=== PATIENT | male | born 1960 | race American Indian/Alaskan Native ===

== ENCOUNTER → 2018-04-09 07:53 | Outpatient (CLI) | payer MEDICARE, OTHER, SELFPAY ==
--- NOTE | 2018-04-12 08:05 | PM.PFT.1 ---
Pulmonary Function Test Referral & Results Date Patient Seen: 04/09/18 Requesting provider: Derick Wooten Indication: Dyspnea Results: The spirometry demonstrates an FVC of 4.52 L which is 109% of predicted. The FEV1 was measured at 3.68 L which is 117% of predicted. The FEV1/FVC ratio was 81 which is 107% of predicted. No bronchodilator was administered Lung volumes show an SVC of 4.62 L which is 110% of predicted. The diffusing capacity was measured at 24.47 which is 90% of predicted. The maximum voluntary ventilation was normal. Interpretation: This study demonstrates normal pulmonary function
== END ==
PROVIDERS: PCP Internal Medicine; Visit Provider Physician Assistant
DX: R06.09 Other forms of dyspnea (principal); F17.219 Nicotine dependence, cigarettes, with unspecified nicotine-induced disorders
CPT/HCPCS: 94010; 94726; 94729

== ENCOUNTER 2019-09-06 14:58 | Inpatient (IN) | payer MEDICARE, OTHER, SELFPAY ==
[2019-09-06 15:07] VITALS: BP 153/87; PULSE 95; RESP 14; TEMP 37.9; O2SAT 95
[2019-09-06 15:52] LABS: Influenza A - CEPHEID Flu A NEGATIVE (NEGATIVE); Influenza B - CEPHEID Flu B NEGATIVE (NEGATIVE)
[2019-09-06] MEDS: SODIUM CHLORIDE 0.9% 1,000 ML 1000 ML IV ×2 (16:19→18:57)
[2019-09-06] MEDS: ONDANSETRON 4 MG/2 ML INJ IV (16:19)
[2019-09-06 16:35] LABS: INR 1.2 (0.9-1.3); Prothrombin Time 14.1 SECONDS (10.1-12.7)
[2019-09-06 16:37] LABS: Add Manual Diff / Slide Review NO; Basophils Absolute Auto 100 /uL (0-100); Basophils Percent Auto 0.4 % (0-2); Eosinophils Absolute Auto 0 /uL (0-450); Eosinophils Percent Auto 0.1 % (2-4); Hematocrit 37.6 % (41-53); Hemoglobin 12.9 g/dL (13.5-17.5); Lymphocytes Absolute Auto 1500 /uL (1100-4500); Lymphocytes Percent Auto 6.9 % (25-40); Mean Corpuscular HGB Conc 34.4 % (30-36); Mean Corpuscular Hemoglobin 32.5 PG (26-34); Mean Corpuscular Volume 94.4 fL (80-100); Monocytes Absolute Auto 1900 /uL (0-900); Monocytes Percent Auto 8.4 % (3-14); Neutrophils Absolute Auto 18700 /uL (1500-7000); Neutrophils Percent Auto 84.2 % (50-75); Platelet Count 231 X10^3/uL (150-400); Red Blood Cell Count 3.98 X10^6/uL (4.5-5.9); Red Cell Distribution Width 12.9 % (11.6-14.8); White Blood Cell Count 22.2 X10^3/uL (4.5-11.0)
[2019-09-06 16:38] LABS: PTT Partial Thromboplastin Tim 43 SECONDS (26.4-36.2)
[2019-09-06 16:42] LABS: Lactate (Lactic Acid) 0.9 mmol/L (0.7-2.1)
[2019-09-06 16:43] LABS: Alanine Aminotransferase 52 IU/L (<50); Albumin 4.1 g/dL (3.5-5.0); Albumin Globulin Ratio 1.1 (1.0-2.8); Alkaline Phosphatase 142 U/L (38-126); Aspartate Aminotransferase 65 IU/L (17-59); BUN Creatinine Ratio 15.6 (6-22); Bilirubin Total 0.7 mg/dL (0.2-1.3); Blood Urea Nitrogen 14 mg/dL (9-20); Calcium 9.3 mg/dL (8.4-10.2); Carbon Dioxide 25 mmol/L (22-32); Chloride 95 mmol/L (98-107); Estimated Glomerular Filt Rate > 60.0 mL/min (>60); Globulin 3.9 g/dL (1.7-4.1); Glucose 142 mg/dL (80-110); HEMOLYSIS < 15 (0-50); Lipase 16 U/L (23-300); Potassium 3.5 mmol/L (3.4-5.1); Sodium 132 mmol/L (137-145)
[2019-09-06 17:00] VITALS: BP 163/83; PULSE 83
[2019-09-06 17:07] LABS: Procalcitonin 0.62 ng/mL (<0.5)
--- NOTE | 2019-09-06 17:56 | DI.CT.S_ITS ---
PROCEDURE: CT ABDOMEN PELVIS W CON INDICATIONS: abd cramping, fever, elevated WBC TECHNIQUE: After the administration of intravenous contrast, 5 mm thick sections acquired from the diaphragm to the symphysis. 5 mm coronal and sagittal reformats were acquired. For radiation dose reduction, the following was used: automated exposure control, adjustment of mA and/or kV according to patient size. COMPARISON: None. FINDINGS: Image quality: Excellent. ABDOMEN: Lung bases: Lung bases are clear. Heart size is normal. Solid organs: Liver is normal in size and enhancement. Gallbladder appears normal. Biliary system is non dilated. Pancreas enhances normally. Spleen is normal in size and enhancement. No adrenal nodules. Kidneys demonstrate normal size and enhancement, without hydronephrosis. Peritoneum and bowel: Bowel loops demonstrate normal wall thickness and caliber. No free fluid or air. Nodes and vessels: No retroperitoneal or mesenteric adenopathy by size criteria. Aorta and inferior vena cava are normal in size. Miscellaneous: No ventral hernias. PELVIS: Genitourinary: Bladder wall thickness is normal. Miscellaneous: No inguinal hernias or adenopathy. Within the midline but most prominently to the left of midline and extending into the presacral space there is extraperitoneal soft tissue edema, in a pattern most likely represent a manifestation of diverticulitis, without visualized peridiverticular abscess. Metal artifact from bilateral hip arthroplasty procedures results in a portion of the lower pelvis being poorly visualized. There is no discrete bladder abnormalities found, but again a portion of the bladder is not seen due to the metal artifact present. Bones: No suspicious bony lesions. No vertebral body compression fractures. IMPRESSION: Prominent inflammation involving the pelvis at and to the left of midline, and statistically this is likely secondary to acute diverticulitis. The metal artifact from bilateral hip arthroplasties prominently degrades quality of visualization through this portion of the pelvis, but with this qualification no peridiverticular abscess is suspected or identified. More superiorly there is no inflammatory process or evidence of free air. Dictated by: Dante Salgado M.D. on 09/06/2019 at 18:26 Approved by: Dante Salgado M.D. on 09/06/2019 at 18:31
[2019-09-06] MEDS: HYDROMORPHONE 0.5 MG INJ IV ×2 (17:57→21:15)
--- NOTE | 2019-09-06 18:09 | ED_ITS ---
HPI - Abdominal Pain General Chief Complaint: Abdominal Pain Stated Complaint: fever/ bodyaches/ stomach pain/ headaches Time Seen by Provider: 09/06/19 17:55 Source: patient Mode of arrival: Ambulatory Limitations: no limitations History of Present Illness HPI narrative: 59-year-old male daily smoker, immunocompromised on Remicade for rheumatoid arthritis presents with a chief complaint of about 3 weeks of gradua lly worsening left lower quadrant pain and now fever, shaking chills decreased appetite with nausea. His pain is worse with motion and improves with rest. He denies any chest pain or shortness of breath. He denies any urinary complaint and has no history of the same. MD complaint: abdominal pain Onset (ago): week(s) Pain Consistency: constant Location: LLQ Severity: moderate Quality: cramping and aching Radiation: none Migration to: no migration Relieving factors: rest Exacerbating factors: movement Associated symptoms: nausea, fever and chills Related Data Home Medications Medication Instructions Recorded Confirmed Remicade See Rx Instructions .ROUTE 12/28/12 09/06/19 .COMPLEX #0 ibuprofen [Advil] 600 mg PO PRN #0 12/28/12 09/06/19 Allergies Allergy/AdvReac Type Severity Reaction Status Date / Time No Known Drug Allergies Allergy Verified 09/06/19 15:11 Review of Systems Constitutional Constitutional: Reports chills, Reports fatigue, Reports fever(s), Denies frequent falls, Denies lethargy and Denies weakness Eyes Eyes: Denies change in vision, Denies eye discharge, Denies irritation and Denies loss of vision ENT Ears, Nose, Mouth, and Throat: Denies change in voice, Denies dizziness, Denies neck pain, Denies sore throat and Denies throat swelling Cardiovascular Cardiovascular: Denies chest pain, Denies irregular heart rhythm, Denies light headedness, Denies palpitations, Denies dyspnea, Denies dyspnea on exertion and Denies orthopnea Respiratory Respiratory: Denies cough, Denies dyspnea, Denies dyspnea on exertion and Denies wheezing Gastrointestinal Gastrointestinal: Reports abdominal pain, Denies change in bowel habits, Denies diarrhea, Reports nausea and Denies vomiting Genitourinary Genitourinary: Denies hematuria, Denies flank pain, Denies urinary incontinence and Denies urinary urgency Musculoskeletal Musculoskeletal: Denies back pain, Denies muscle weakness, Denies neck pain, Denies numbness and Denies tingling Integumentary/Breasts Skin/Breast: Denies pruritus, Denies erythema, Denies rash and Denies wounds Neurologic Neurologic: Denies behavioral changes, Denies confusion, Denies dizziness, Denies frequent falls, Denies loss of vision, Denies numbness, Denies tingling and Denies weakness Psychiatric Psychiatric: Denies anxiety, Denies behavioral changes, Denies confusion, Denies depression, Denies homicidal ideation and Denies suicidal ideation Endocrine Endocrine: Reports fatigue, Denies flushing and Denies palpitations Hematologic/Lymphatic Hematologic/Lymphatic: Denies easy bruising Allergic/Immunologic Allergic/Immunologic: Denies urticaria, Denies throat swelling and Denies wheezing Patient History Medical History Osteoarthritis (Acute) Rheumatoid arthritis (Acute) Surgical History History of appendectomy (Acute) History of bilateral total hip arthroplasty (Acute) History of inguinal hernia repair, bilateral (Acute) Social History household members: none Smoking Status: Current every day smoker alcohol intake: current Smoking Status: Current every day smoker alcohol intake frequency: 0-2 drinks per day Substance Use Type: does not use Exam Narrative Exam Narrative: GENERAL: [59] year old patient appears stated age. Well- nourished, well-developed patient, in mild distress. Ill-appearing, clearly and pain HEAD: Atraumatic. Normocephalic. EYES: Pupils equal round and reactive. Extraocular motions intact. No scleral icterus. No injection or drainage. ENT: Nose without bleeding, purulent drainage. Throat without erythema, tonsillar hypertrophy or exudate. Airway patent. NECK: Trachea midline. Non tender CARDIOVASCULAR: Regular rate and rhythm without murmurs, gallops, or rubs. RESPIRATORY: Clear to auscultation. Breath sounds equal bilaterally. No wheezes, rales, or rhonchi. GASTROINTESTINAL: Abdomen soft, tender left lower quadrant, nondistended. EXTREMITIES: No edema or joint tenderness. BACK: Nontender without deformity or crepitance. No flank tenderness. NEURO: AOx3. SKIN: No rash or erythema of visible areas Initial Vital Signs Initial Vital Signs: Vital Signs Temperature 100.2 F H 09/06/19 15:07 Pulse Rate 95 H 09/06/19 15:07 Respiratory Rate 14 09/06/19 15:07 Blood Pressure 153/87 H 09/06/19 15:07 Pulse Oximetry 95 09/06/19 15:07 Course Orders Ordered: Acetaminophen (Tylenol) 650 mg PO Q6HR PRN PRN Reason: Fever/Mild Pain (1-3) Al Hydrox/Mg Hydrox/Simethicone (Maalox Plus) 30 ml PO Q6HR PRN PRN Reason: Dyspepsia Calcium Carbonate (Tums) 1,000 mg PO Q4HR PRN PRN Reason: Dyspepsia Heparin Sodium (Porcine) (Heparin) 5,000 unit SUBCUT BID [facility] Last Admin: 09/06/19 21:15 Dose: 5,000 unit Documented by: DUANE Hydromorphone HCl (Dilaudid) 0.5 mg IV Q4H PRN PRN Reason: Pain, Severe (7-10) Last Admin: 09/07/19 01:53 Dose: 0.5 mg Documented by: Admin: 09/06/19 21:15 Dose: 0.5 mg Documented by: DUANE Lactated Ringer's (Lactated Ringers) 1,000 mls @ 125 mls/hr IV CONT [facility] Last Admin: 09/06/19 21:16 Dose: 125 mls/hr Documented by: DUANE Levofloxacin (Levaquin) 750 mg in 150 mls @ 100 mls/hr IV Q24H CHRISTOPHE Metronidazole (Flagyl) 500 mg in 100 mls @ 100 mls/hr IV Q6H [facility] Last Infusion: 09/07/19 02:49 Dose: 100 mls/hr Documented by: Admin: 09/07/19 01:49 Dose: 100 mls/hr Documented by: JERARDO Sodium Chloride (Normal Saline 0.9%) 1,000 mls @ 100 mls/hr IV CONT [facility] Last Admin: 09/07/19 01:59 Dose: 100 mls/hr Documented by: JERARDO Influenza Virus Vaccine (Flu Vaccine) 0.5 ml IM .ONCE ONE Stop: 09/07/19 09:01 Naloxone HCl (Narcan) 0.2 mg IV Q2MIN PRN PRN Reason: Opiate Reversal Nicotine (Nicoderm) 14 mg TOP DAILY CHRISTOPHE Ondansetron HCl (Zofran) 4 mg IV Q8HR PRN PRN Reason: Nausea And Vomiting Sodium Chloride (Normal Saline 0.9% Flush) 10 ml IV BID CHRISTOPHE Last Admin: 09/06/19 21:00 Dose: 10 ml Documented by: DUANE Sodium Chloride (Normal Saline 0.9% Flush) 10 ml IV PRN PRN PRN Reason: Flush Discontinued Medications Hydromorphone HCl (Dilaudid) 0.5 mg IV NOW ONE Stop: 09/06/19 17:19 Last Admin: 09/06/19 17:57 Dose: 0.5 mg Documented by: KASANDRA Sodium Chloride (Normal Saline 0.9%) 1,000 mls @ 1,000 mls/hr IV BOLUS ONE Stop: 09/06/19 17:04 Last Infusion: 09/06/19 17:40 Dose: 0 mls/hr Documented by: Infusion: 09/06/19 16:52 Dose: 1,000 mls/hr Documented by: Admin: 09/06/19 16:19 Dose: 1,000 mls/hr Documented by: YOSSI Sodium Chloride (Normal Saline 0.9%) 1,000 mls @ 1,000 mls/hr IV BOLUS ONE Stop: 09/06/19 19:09 Last Infusion: 09/06/19 20:00 Dose: 0 mls/hr Documented by: Admin: 09/06/19 18:57 Dose: 1,000 mls/hr Documented by: YOSSI Levofloxacin (Levaquin) 500 mg in 100 mls @ 100 mls/hr IV NOW ONE Stop: 09/06/19 19:42 Last Infusion: 09/06/19 20:53 Dose: 0 mls/hr Documented by: Admin: 09/06/19 20:01 Dose: 100 mls/hr Documented by: KASANDRA Metronidazole (Flagyl) 500 mg in 100 mls @ 100 mls/hr IV NOW ONE Stop: 09/06/19 19:42 Last Infusion: 09/06/19 20:00 Dose: 0 mls/hr Documented by: Admin: 09/06/19 18:58 Dose: 100 mls/hr Documented by: YOSSI Ibuprofen (Advil) 600 mg PO Q6HR PRN PRN Reason: Fever/Mild Pain (1-3) Influenza Virus Vaccine (Flu Vaccine) 0.5 ml IM .ONCE ONE Stop: 09/06/19 21:50 Last Admin: 09/07/19 00:30 Dose: Not Given Documented by: JERARDO Ondansetron HCl (Zofran) 4 mg IV NOW ONE Stop: 09/06/19 16:06 Last Admin: 09/06/19 16:19 Dose: 4 mg Documented by: YOSSI Vital Signs Vital signs: Vital Signs - 8 hr 09/06/19 15:07 Temperature 100.2 F H Pulse Rate 95 H Respiratory Rate 14 Blood Pressure 153/87 H Pulse Oximetry 95 MDM - Abdominal Pain Lab Data Result diagrams: 09/06/19 16:15 09/06/19 16:15 Labs: Lab Results 09/06/19 09/06/19 09/06/19 Range/Units 15:13 16:15 16:15 WBC 22.2 H (4.5-11.0) X10^3/uL RBC 3.98 L (4.5-5.9) X10^6/uL Hgb 12.9 L (13.5-17.5) g/dL Hct 37.6 L (41-53) % MCV 94.4 (80-100) fL MCH 32.5 (26-34) PG MCHC 34.4 (30-36) % RDW 12.9 (11.6-14.8) % Plt Count 231 (150-400) X10^3/uL Neut % (Auto) 84.2 H (50-75) % Lymph % (Auto) 6.9 L (25-40) % [place] % (Auto) 8.4 (3-14) % Eos % (Auto) 0.1 L (2-4) % Baso % (Auto) 0.4 (0-2) % Neut # (Auto) 82321 H (0608-8034) /uL Lymph # (Auto) 1500 (4244-8707) /uL [place] # (Auto) 1900 H (0-900) /uL Eos # (Auto) 0 (0-450) /uL Baso # (Auto) 100 (0-100) /uL PT 14.1 H (10.1-12.7) SECONDS INR 1.2 (0.9-1.3) APTT 43 H (26.4-36.2) SECONDS Sodium (137-145) mmol/L Potassium (3.4-5.1) mmol/L Chloride (98-107) mmol/L Carbon Dioxide (22-32) mmol/L BUN (9-20) mg/dL Creatinine (0.66-1.25) mg/dL Estimated GFR (>60) mL/min BUN/Creatinine Ratio (6-22) Glucose (80-110) mg/dL Lactate (0.7-2.1) mmol/L Calcium (8.4-10.2) mg/dL Magnesium (1.6-2.3) mg/dL Total Bilirubin (0.2-1.3) mg/dL AST (17-59) IU/L ALT (<50) IU/L Alkaline Phosphatase (38-126) U/L Total Protein (6.3-8.2) g/dL Albumin (3.5-5.0) g/dL Globulin (1.7-4.1) g/dL Albumin/Globulin Ratio (1.0-2.8) Lipase (23-300) U/L Procalcitonin (<0.5) ng/mL Urine RBC (0-5/HPF) Urine WBC (0-5/HPF) Amorphous Sediment Urine Bacteria (None) Urine Mucus (Negative) Ur Culture Indicated? Influenza A (RT-PCR) Flu a negative (NEGATIVE) Influenza B (RT-PCR) Flu b negative (NEGATIVE) 09/06/19 09/06/19 09/06/19 Range/Units 16:15 16:15 16:15 WBC (4.5-11.0) X10^3/uL RBC (4.5-5.9) X10^6/uL Hgb (13.5-17.5) g/dL Hct (41-53) % MCV (80-100) fL MCH (26-34) PG MCHC (30-36) % RDW (11.6-14.8) % Plt Count (150-400) X10^3/uL Neut % (Auto) (50-75) % Lymph % (Auto) (25-40) % [place] % (Auto) (3-14) % Eos % (Auto) (2-4) % Baso % (Auto) (0-2) % Neut # (Auto) (6205-6219) /uL Lymph # (Auto) (2284-1890) /uL [place]vert # (Auto) (0-900) /uL Eos # (Auto) (0-450) /uL Baso # (Auto) (0-100) /uL PT (10.1-12.7) SECONDS INR (0.9-1.3) APTT (26.4-36.2) SECONDS Sodium 132 L (137-145) mmol/L Potassium 3.5 (3.4-5.1) mmol/L Chloride 95 L (98-107) mmol/L Carbon Dioxide 25 (22-32) mmol/L BUN 14 (9-20) mg/dL Creatinine 0.90 (0.66-1.25) mg/dL Estimated GFR > 60.0 (>60) mL/min BUN/Creatinine Ratio 15.6 (6-22) Glucose 142 H (80-110) mg/dL Lactate 0.9 (0.7-2.1) mmol/L Calcium 9.3 (8.4-10.2) mg/dL Magnesium (1.6-2.3) mg/dL Total Bilirubin 0.7 (0.2-1.3) mg/dL AST 65 H (17-59) IU/L ALT 52 H (<50) IU/L Alkaline Phosphatase 142 H (38-126) U/L Total Protein 8.0 (6.3-8.2) g/dL Albumin 4.1 (3.5-5.0) g/dL Globulin 3.9 (1.7-4.1) g/dL Albumin/Globulin Ratio 1.1 (1.0-2.8) Lipase 16 L (23-300) U/L Procalcitonin 0.62 H (<0.5) ng/mL Urine RBC (0-5/HPF) Urine WBC (0-5/HPF) Amorphous Sediment Urine Bacteria (None) Urine Mucus (Negative) Ur Culture Indicated? Influenza A (RT-PCR) (NEGATIVE) Influenza B (RT-PCR) (NEGATIVE) 09/06/19 09/06/19 Range/Units 16:15 17:30 WBC (4.5-11.0) X10^3/uL RBC (4.5-5.9) X10^6/uL Hgb (13.5-17.5) g/dL Hct (41-53) % MCV (80-100) fL MCH (26-34) PG MCHC (30-36) % RDW (11.6-14.8) % Plt Count (150-400) X10^3/uL Neut % (Auto) (50-75) % Lymph % (Auto) (25-40) % [place]vert % (Auto) (3-14) % Eos % (Auto) (2-4) % Baso % (Auto) (0-2) % Neut # (Auto) (4716-1341) /uL Lymph # (Auto) (9474-9855) /uL [place]vert # (Auto) (0-900) /uL Eos # (Auto) (0-450) /uL Baso # (Auto) (0-100) /uL PT (10.1-12.7) SECONDS INR (0.9-1.3) APTT (26.4-36.2) SECONDS Sodium (137-145) mmol/L Potassium (3.4-5.1) mmol/L Chloride (98-107) mmol/L Carbon Dioxide (22-32) mmol/L BUN (9-20) mg/dL Creatinine (0.66-1.25) mg/dL Estimated GFR (>60) mL/min BUN/Creatinine Ratio (6-22) Glucose (80-110) mg/dL Lactate (0.7-2.1) mmol/L Calcium (8.4-10.2) mg/dL Magnesium 2.3 (1.6-2.3) mg/dL Total Bilirubin (0.2-1.3) mg/dL AST (17-59) IU/L ALT (<50) IU/L Alkaline Phosphatase (38-126) U/L Total Protein (6.3-8.2) g/dL Albumin (3.5-5.0) g/dL Globulin (1.7-4.1) g/dL Albumin/Globulin Ratio (1.0-2.8) Lipase (23-300) U/L Procalcitonin (<0.5) ng/mL Urine RBC 1-5/hpf (0-5/HPF) Urine WBC None seen (0-5/HPF) Amorphous Sediment 2+ Urine Bacteria None seen (None) Urine Mucus 2+ H (Negative) Ur Culture Indicated? Cult not indicated Influenza A (RT-PCR) (NEGATIVE) Influenza B (RT-PCR) (NEGATIVE) Point of care testing: Urine Dip Bedside Urine Glucose Negative Bedside Urine Bilirubin + 1 Bedside Urine Ketone +++ 80 Urine Specific [place] 1.020 Bedside Urine Occult Blood ++ Bedside Urine pH 6.0 Bedside Urine Protein +++ 300 Bedside Urine Urobilinogen 1+ 2mg Bedside Urine Nitrite - Negative Bedside Urine Leukocytes - Negative Esterase Imaging Data CT scan - abdomen/pelvis: Radiologist's Impression: [address] [id number] [address] Scan Report Signed Patient: Moose Huynh TMR#: [id number] : 8Acct:[id number] Age/Sex: 59 / MDate of Service: 09/06/19 Loc: ED Accession Number: [id number] Procedure: CT abdomen pelvis w con Ordering Provider: Antione Mckeon PROCEDURE: CT ABDOMEN PELVIS W CON INDICATIONS: abd cramping, fever, elevated WBC TECHNIQUE: After the administration of intravenous contrast, 5 mm thick sections acquired from the diaphragm to the symphysis. 5 mm coronal and sagittal reformats were acquired. For radiation dose reduction, the following was used: automated exposure control, adjustment of mA and/or kV according to patient size. COMPARISON: None. FINDINGS: Image quality: Excellent. ABDOMEN: Lung bases: Lung bases are clear. Heart size is normal. Solid organs: Liver is normal in size and enhancement. Gallbladder appears normal. Biliary system is non dilated. Pancreas enhances normally. Spleen is normal in size and enhancement. No adrenal nodules. Kidneys demonstrate normal size and enhancement, without hydronephrosis. Peritoneum and bowel: Bowel loops demonstrate normal wall thickness and caliber. No free fluid or air. Nodes and vessels: No retroperitoneal or mesenteric adenopathy by size criteria. Aorta and inferior vena cava are normal in size. Miscellaneous: No ventral hernias. PELVIS: Genitourinary: Bladder wall thickness is normal. Miscellaneous: No inguinal hernias or adenopathy. Within the midline but most prominently to the left of midline and extending into the presacral space there is extraperitoneal soft tissue edema, in a pattern most likely represent a manifestation of diverticulitis, without visualized peridiverticular abscess. Metal artifact from bilateral hip arthroplasty procedures results in a portion of the lower pelvis being poorly visualized. There is no discrete bladder abnormalities found, but again a portion of the bladder is not seen due to the metal artifact present. Bones: No suspicious bony lesions. No vertebral body compression fractures. IMPRESSION: Prominent inflammation involving the pelvis at and to the left of midline, and statistically this is likely secondary to acute diverticulitis. The metal artifact from bilateral hip arthroplasties prominently degrades quality of visualization through this portion of the pelvis, but with this qualification no peridiverticular abscess is suspected or identified. More superiorly there is no inflammatory process or evidence of free air. Dictated by: Dante Salgado M.D. on 09/06/2019 at 18:26 Approved by: Dante Salgado M.D. on 09/06/2019 at 18:31 [facility] Narrative Medical decision making narrative: 59-year-old smoker, immunocompromise presents with 3 weeks of worsening fever chills and abdominal pain. CT notes diverticulitis in the absence of perforation or abscess. Patient shows marked improvement after fluids, pain control, antiemetics and antibiotics. Patient requires hospitalization given septic presentation duration of symptoms and immunocompromise. Discharge Plan Departure Patient Disposition: Admitted As Inpatient Clinical Impression: Diverticulitis Sepsis Qualifiers: Sepsis type: sepsis due to unspecified organism Sepsis acute organ dysfunction status: unspecified Qualified Code(s): A41.9 - Sepsis, unspecified organism Discharge Date/Time: 09/06/19 20:52 Admit Date/Time: 09/06/19 20:30 Admit Provider: Dario Howell
[2019-09-06 18:19] LABS: Bacteria Urine None Seen; WBC Urine None Seen (0-5/HPF)
[2019-09-06 18:34] LABS: Amorphous Sediment Urine 2+; Culture Indicated Urine Cult Not Indicated; Mucus Urine 2+ (Negative); RBC Urine 1-5/HPF (0-5/HPF)
[2019-09-06 18:43] VITALS: BP 140/78; PULSE 80; RESP 18; O2SAT 94
[2019-09-06] MEDS: metroNIDAZOLE 500 MG/100 ML PIGGYBACK 100 MG IV (18:58)
[2019-09-06] MEDS: levoFLOXacin 500 MG/100 ML PIGGYBACK 100 MG IV (20:01)
[2019-09-06 20:22] VITALS: BP 141/71; PULSE 79; O2SAT 96
--- NOTE | 2019-09-06 20:58 | P.HP_ITS ---
History of Present Illness History of Present Illness Date Patient Seen: 09/06/19 Time Patient Seen: 20:10 Chief complaint: fever/ bodyaches/ stomach pain/ headaches Narrative: Mr. Moose Huynh is a 59-year-old male with a history significant for rheumatoid arthritis on Remicade who reports being ill for approximately 10 days with progressive abdominal pain in the left lower quadrant. Describes pain as crampy and had associated symptoms of fevers and chills, diaphoresis, nausea without vomiting, body aches, poor appetite and weakness. Patient also endorses complaints of nasal congestion and sore throat at the onset of his symptoms. He reports never having previous bowel problems and denies diarrhea and states he has never had colonoscopy. He is on Remicade for rheumatoid arthritis and received injections every 5 weeks the last being 2 weeks ago. Reports no complaints of headaches or dizziness. He does report having swollen cervical lymph nodes at the onset of symptoms. He has had no chest pain or palpitations and has no shortness of breath cough or wheezing. He denies changes in urination. He complaints of stiff and achy joints due to immobility being predominantly bed rest for the last 10 days. Upon arrival patient has temperature of 100.2?, heart rate 95, blood pressure 153/87, respirations 14 saturating 95% on room air. Abdominal pelvis CT is obtained which finds extraperitoneal edema most prominent left midline most likely associated with diverticulitis, exam is limited due to imaging artifact from bilateral hip replacements. On laboratory now patient has an elevated white count at 12 2 point, hemoglobin of 12.9, hematocrit of 37.6 and platelets of 231. On coagulation he has a PT of 14.1, INR 1.2, PTT of 43. His sodium is low at 132 with a potassium of 3.5. His BUN is 14 and creatinine is 0.9 and a nonfasting glucose of 142. On liver function is a total bilirubin of 0.7, AST 65, ALT of 52 and alkaline phosphatase of 142. His albumin is 4.1. He has lipase of 16. His lactic acid 0.9 and procalcitonin 0.62. Flu screening is negative. In the ER the patient has received 2 L of IV fluid Zofran for nausea and was started on Levaquin 500 mg IV and Flagyl 500 mg IV. The patient is admitted to the medicine service for diverticulitis. Patient History Medical History (Updated 09/07/19 @ 00:53 by CONCETTA Espinoza) Osteoarthritis (Acute) Rheumatoid arthritis (Acute) Surgical History (Updated 09/07/19 @ 00:53 by CONCETTA Espinoza) History of appendectomy (Acute) History of bilateral total hip arthroplasty (Acute) History of inguinal hernia repair, bilateral (Acute) Family & Social History Safety & Behavioral: Feels Safe in Current Yes Environment Been Physically Hurt or No Threatened By a Person Tobacco & Substance use: Smoking Status Current every day smoker alcohol intake frequency 0-2 drinks per day Substance Use Type does not use Comment: Patient lives in a single family home by himself. He has been 4 times. He endorses a history of his father passing away at age 59 from bladder cancer and was a heavy smoker. His mother who was a smoker at age 67 from heart attack. He has a sister reports is overweight and drinks heavily and smokes. He has 2 children whom he describes in good health. 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 Alcohol: Patient endorses consuming 2 drinks daily. Substance use: Patient worse is occasional use cannabis. Advanced directives: The patient does not have a formal advanced directive but states his wish to be FULL CODE. The patient designates his daughter Will to be his surrogate decision maker. Meds Home Medications and Allergies Home Medications Medication Instructions Recorded Confirmed Type Remicade See Rx Instructions .ROUTE 12/28/12 09/06/19 History .COMPLEX #0 ibuprofen [Advil] 600 mg PO PRN #0 12/28/12 09/06/19 History Allergies Allergy/AdvReac Type Severity Reaction Status Date / Time No Known Drug Allergies Allergy Verified 09/06/19 15:11 Review of Systems Review of Systems Narrative: All systems reviewed and found unremarkable under discussed in the HPI above. Exam Vital Signs (past 8 hours): - 09/06/19 15:07 09/06/19 17:00 09/06/19 18:43 Temperature 100.2 F H Pulse Rate 95 H 83 80 Respiratory Rate 14 18 Blood Pressure 153/87 H Blood Pressure [Right Arm] 163/83 H 140/78 Pulse Oximetry 95 94 09/06/19 20:22 Temperature Pulse Rate 79 Respiratory Rate Blood Pressure Blood Pressure [Right Arm] 141/71 H Pulse Oximetry 96 Oxygen Delivery Method Room Air Narrative Exam Narrative: GENERAL APPEARANCE: well developed, well nourished, moderately ill and uncomfortable appearing. HEENT: Normocephalic, PERRLA, conjunctiva clear, EOMs intact without nystagmus, no sinus tenderness to percussion, nasal congestion, mucous membranes are moist and pink without lesions or exudate. NECK/THYROID: neck supple, no JVD, no carotid bruit, no thyromegaly, trachea midline. LYMPH NODES: no cervical or supraclavicular lymphadenopathy. SKIN: [place], warm and dry, no visible lesions, rashes, ulcerations or petechiae. HEART: regular rate and rhythm, S1-S2, no murmur, no rubs or gallops, brisk capillary refill, no edema LUNGS: clear to auscultation bilaterally, no coarseness crackles or wheezing, no cough present CHEST: Symmetrical movement, no accessory muscle use, good tidal volume. ABDOMEN: Soft, mild distention, attempting to percussion, pain on palpation bilateral lower quadrants, no abdominal pain on heel strike, no organomegaly, no flank or suprapubic tenderness, active bowel tones. BACK: Normal curvature, nontender to palpation, no CVA tenderness on percussion EXTREMITIES: moves all extremities, strength is 5/5 and symmetrical, no deformities or joint effusions. NEUROLOGIC: AAO x4, no focal neurologic deficits, cranial nerves II-XII grossly intact, sensation intact to light touch, hearing grossly normal to speech. PSYCH: cooperative, appropriate with stable behavior Objective Labs Result Diagrams: 09/06/19 16:15 09/06/19 16:15 Labs: Laboratory Results - last 24 hr 09/06/19 09/06/19 09/06/19 15:13 16:15 16:15 WBC 22.2 H RBC 3.98 L Hgb 12.9 L Hct 37.6 L MCV 94.4 MCH 32.5 MCHC 34.4 RDW 12.9 Plt Count 231 Neut % (Auto) 84.2 H Lymph % (Auto) 6.9 L [place] % (Auto) 8.4 Eos % (Auto) 0.1 L Baso % (Auto) 0.4 Neut # (Auto) 75918 H Lymph # (Auto) 1500 [place] # (Auto) 1900 H Eos # (Auto) 0 Baso # (Auto) 100 PT 14.1 H INR 1.2 APTT 43 H Sodium Potassium Chloride Carbon Dioxide BUN Creatinine Estimated GFR BUN/Creatinine Ratio Glucose Lactate Calcium Total Bilirubin AST ALT Alkaline Phosphatase Total Protein Albumin Globulin Albumin/Globulin Ratio Lipase Procalcitonin Urine RBC Urine WBC Amorphous Sediment Urine Bacteria Urine Mucus Ur Culture Indicated? Influenza A (RT-PCR) Flu a negative Influenza B (RT-PCR) Flu b negative 09/06/19 09/06/19 09/06/19 16:15 16:15 16:15 WBC RBC Hgb Hct MCV MCH MCHC RDW Plt Count Neut % (Auto) Lymph % (Auto) [place] % (Auto) Eos % (Auto) Baso % (Auto) Neut # (Auto) Lymph # (Auto) [place] # (Auto) Eos # (Auto) Baso # (Auto) PT INR APTT Sodium 132 L Potassium 3.5 Chloride 95 L Carbon Dioxide 25 BUN 14 Creatinine 0.90 Estimated GFR > 60.0 BUN/Creatinine Ratio 15.6 Glucose 142 H Lactate 0.9 Calcium 9.3 Total Bilirubin 0.7 AST 65 H ALT 52 H Alkaline Phosphatase 142 H Total Protein 8.0 Albumin 4.1 Globulin 3.9 Albumin/Globulin Ratio 1.1 Lipase 16 L Procalcitonin 0.62 H Urine RBC Urine WBC Amorphous Sediment Urine Bacteria Urine Mucus Ur Culture Indicated? Influenza A (RT-PCR) Influenza B (RT-PCR) 09/06/19 17:30 WBC RBC Hgb Hct MCV MCH MCHC RDW Plt Count Neut % (Auto) Lymph % (Auto) [place] % (Auto) Eos % (Auto) Baso % (Auto) Neut # (Auto) Lymph # (Auto) [place] # (Auto) Eos # (Auto) Baso # (Auto) PT INR APTT Sodium Potassium Chloride Carbon Dioxide BUN Creatinine Estimated GFR BUN/Creatinine Ratio Glucose Lactate Calcium Total Bilirubin AST ALT Alkaline Phosphatase Total Protein Albumin Globulin Albumin/Globulin Ratio Lipase Procalcitonin Urine RBC 1-5/hpf Urine WBC None seen Amorphous Sediment 2+ Urine Bacteria None seen Urine Mucus 2+ H Ur Culture Indicated? Cult not indicated Influenza A (RT-PCR) Influenza B (RT-PCR) Assessment & Plan Assessment & Plan narrative: This is a 59-year-old male who is immunosuppressed on Remicade who describes symptoms of upper respiratory viral infection symptoms that are resolving and abdominal pain with nausea vomiting diaphoresis. 1. Acute sepsis, Present on admission, active -patient is immunosuppressed on Remicade. -SOFA score is 1 with a PF ratio of 376 based on room air saturation of 95% and has an elevated heart rate of 95. -septic indicators include a elevated white blood cell count of 22, procalcitonin of 0.62, elevated INR 1.2 an elevated glucose of 142. Lactic acid is 0.9. -patient has received early goal-directed therapy with initiation of antibiotics. -ordered Levaquin 750 mg IV daily, metronidazole 500 mg IV every 6 hours. -normal saline 100 cc/hour -will obtain respiratory PCR panel and GI PCR panel -will follow CBC and procalcitonin 2. Acute Diverticulosis, present on admission, active -no prior history of bowel problems, no previous colonoscopy. No complaints of rectal bleeding. -patient with bilateral lower quadrant pain with mild abdominal distention, attempting to percussion, active bowel tones -CT exam finds extra peritoneal edema in the pelvis most prominent left of midline. Imaging is limited related to streak artifact from bilateral hip replacements. -will obtain an MR of the abdomen. -will obtain GI PCR panel -request surgery consult. 3. Increased blood pressure without a diagnosis of hypertension, present on admission, active. -patient's admission blood pressure is 153/87, likely pain related -will monitor patient's blood pressure and treat as needed. 4. Current smoker, present on admission, active. -patient has a 40 pack year smoking history smoking approximately 1 pack per day. -ordered Nicoderm patch -substance abuse counselor on smoking. VTE prophylaxis: SCDs, heparin Diet: Clear liquid IVF: Normal saline 100 cc/hour The patient is admitted to the hospital due to the severity of symptoms, risk for complications and adverse events. The patient is admitted as an inpatient with expected length of stay to be greater than 2 midnights. Scores GCS [place] coma scale eye opening: Spontaneous [place] coma scale verbal response: Orientated [place] coma scale motor response: Obey commands [place] coma scale total score: 15 SOFA PaO2/FIO2: < 400 mmHg Platelets: >= 150 Bilirubin: < 1.2 mg/dL Hypotension: MAP >= 70 mmHg [place]lyn Coma Scale: 15 Renal: < 1.2 mg/dL SOFA Score: 1
[2019-09-06 20:59] LABS: Magnesium 2.3 mg/dL (1.6-2.3)
[2019-09-06] MEDS: SODIUM CHLORIDE 0.9% FLUSH 10 ML IV (21:00)
[2019-09-06 21:12] VITALS: BP 152/84; PULSE 95; RESP 22; TEMP 37.1; O2SAT 94
[2019-09-06] MEDS: HEPARIN 5,000 UNIT/ML VIAL 5000 UNIT SUBCUT (21:15)
[2019-09-06] MEDS: LACTATED RINGERS 1,000 ML 125 ML IV (21:16)
[2019-09-06 21:40] VITALS: BMI 27.7
--- NOTE | 2019-09-06 22:04 | PC.NURSE ---
Pt to room 220 from E.R. via wheelchair. C/o 8/10 abdominal pain once pt positions self into bed. Hospitalist, Dante, was informed. Encouraged pt to place self in position of comfort in bed. Administered 0.5 mg iv dilaudid and warm blanket to abdomen. Ice chips provided after reviewing diet order. IV levaquin completed as begun in E.R. BL calf scd's placed with explanation to pt. Bed alarm set and pt instructed to call for assistance when needing or desiring out of bed. Informed pt need for stool specimen. Respiratory panel completed and sent to lab. Pt's valuables secured in safe with witness by Sophie Barker and pt's permission. Pt does report some improvement in pain and states is going to attempt to sleep. Quiet atmosphere provided.
[2019-09-06 22:56] LABS: Bacteria Urine None Seen; WBC Urine None Seen (0-5/HPF)
[2019-09-06 23:04] LABS: Adenovirus Not Detected (Not Detect); Bordetella pertussis Not Detected (Not Detect); Chlamydophila pneumoniae Not Detected (Not Detect); Coronavirus 229E Not Detected (Not Detect); Coronavirus HKU1 Not Detected (Not Detect); Coronavirus NL 63 Not Detected (Not Detect); Coronavirus OC43 Not Detected (Not Detect); Human Metapneumovirus Not Detected (Not Detect); Human Rhinovirus/Enterovirus Not Detected (Not Detect); Influenza A Not Detected (Not Detect); Influenza B Not Detected (Not Detect); Mycoplasma pneumoniae Not Detected (Not Detect); Parainfluenza Virus 1 Not Detected (Not Detect); Parainfluenza Virus 2 Not Detected (Not Detect); Parainfluenza Virus 3 Not Detected (Not Detect); Parainfluenza Virus 4 Not Detected (Not Detect); Respiratory Syncytial Virus Not Detected (Not Detect)
[2019-09-06 23:15] VITALS: BP 127/49; PULSE 80; RESP 14; TEMP 36.8; O2SAT 92
[2019-09-07] VITALS (10 sets, daily range): BP systolic 101–124; BP diastolic 47–69; PULSE 58–76; RESP 16–20; TEMP 36.6–38.2; O2SAT 90–95
--- NOTE | 2019-09-07 01:10 | DI.MRI.S_ITS ---
PROCEDURE: MR ABDOME PELVIS WWO CON INDICATIONS: diverticulitis, limited CT imaging due to BTHA. TECHNIQUE: After the ingestion of oral contrast, coronal and axial HASTE, coronal 2-D FLASH in-and [id number] sequences. After the administration of contrast, coronal and axial VIBE or 2-D FLASH with fat saturation sequences acquired through the abdomen and pelvis. Optional diffusion weighted imaging and ADC may be performed. COMPARISON: [facility], CT, CT ABDOMEN PELVIS W CON, 09/06/2019, 18:10. FINDINGS: Image quality: Good. Susceptibility artifact due to bilateral hip arthroplasties. Some of the sequences are degraded by motion artifact. Bowel and peritoneum: Moderate inflammatory change in the left pelvis. Moderate diverticulosis. Fluid tracks into the presacral space. No restricted diffusion demonstrated to suggest abscess. Solid organs: Liver is normal in size and enhancement. Small hepatic cyst. Gallbladder is mildly distended. No pericholecystic fluid. Biliary system is non dilated, without findings to suggest primary sclerosing cholangitis. Pancreas is normal in morphology, without evidence for autoimmune pancreatitis. Spleen is normal in size and enhancement. Small splenic hemangiomas or cysts. No adrenal nodules. Both kidneys are normal in size and enhancement, without hydronephrosis. Nodes and vessels: No retroperitoneal or mesenteric adenopathy. Aorta and inferior vena cava are normal in size. Lung bases: Trace pleural effusions. Heart size is normal. Pelvis: No free pelvic fluid. Inferior bowel loops are normal in caliber. No inguinal hernias or adenopathy. Bones and soft tissues: No ventral hernias. Bone marrow is normal in overall signal. No findings to suggest sacroiliitis. Femoral heads demonstrate no avascular necrosis. IMPRESSION: Moderate inflammatory change in the left pelvis with fluid tracking into the presacral space. Suspect acute diverticulitis. No abscess demonstrated at this time. Consider followup CT with IV contrast. Dictated by: Eben Montalvo M.D. on 09/07/2019 at 14:16 Approved by: Eben Montalvo M.D. on 09/07/2019 at 14:27
[2019-09-07] MEDS: metroNIDAZOLE 500 MG/100 ML PIGGYBACK 100 MG IV ×4 (01:49→19:52)
[2019-09-07] MEDS: HYDROMORPHONE 0.5 MG INJ IV ×5 (01:53→20:36)
[2019-09-07] MEDS: SODIUM CHLORIDE 0.9% 1,000 ML 100 ML IV ×2 (01:59→15:39)
[2019-09-07 04:02] LABS: Appearance Urine UA Clear; Color Urine UA Yellow; Glucose Urine UA NEGATIVE (Negative); Ketones Urine UA TRACE (NEGATIVE); Nitrite Urine UA NEGATIVE (Negative); Occult Blood Urine UA 3+ (Negative); Protein Urine UA 2+ (Negative); Specific Gravity Urine UA <1.005 (1.000-1.035); pH Urine UA 6.5 (4.5-8.0)
[2019-09-07 04:03] LABS: Bilirubin Urine UA Negative (NEGATIVE); Culture Indicated Urine Cult Not Indicated; Leukocyte Esterase Urine UA NEGATIVE (NEGATIVE); RBC Urine 1-5/HPF (0-5/HPF)
[2019-09-07 05:30] LABS: Add Manual Diff / Slide Review NO; Basophils Absolute Auto 0 /uL (0-100); Basophils Percent Auto 0.2 % (0-2); Eosinophils Absolute Auto 0 /uL (0-450); Eosinophils Percent Auto 0.1 % (2-4); Hematocrit 33.2 % (41-53); Hemoglobin 11.5 g/dL (13.5-17.5); Lymphocytes Absolute Auto 1800 /uL (1100-4500); Lymphocytes Percent Auto 8.6 % (25-40); Mean Corpuscular HGB Conc 34.7 % (30-36); Mean Corpuscular Hemoglobin 32.7 PG (26-34); Mean Corpuscular Volume 94.1 fL (80-100); Monocytes Absolute Auto 1900 /uL (0-900); Monocytes Percent Auto 9.3 % (3-14); Neutrophils Absolute Auto 17100 /uL (1500-7000); Neutrophils Percent Auto 81.8 % (50-75); Platelet Count 213 X10^3/uL (150-400); Red Blood Cell Count 3.53 X10^6/uL (4.5-5.9); Red Cell Distribution Width 13.1 % (11.6-14.8); White Blood Cell Count 20.9 X10^3/uL (4.5-11.0)
[2019-09-07 05:38] LABS: Alanine Aminotransferase 35 IU/L (<50); Albumin 3.2 g/dL (3.5-5.0); Alkaline Phosphatase 102 U/L (38-126); Aspartate Aminotransferase 32 IU/L (17-59); BUN Creatinine Ratio 11.3 (6-22); Bilirubin Total 0.6 mg/dL (0.2-1.3); Bilirubin Unconjugated 0.5 mg/dL (0.0-1.1); Blood Urea Nitrogen 9 mg/dL (9-20); Calcium 8.1 mg/dL (8.4-10.2); Carbon Dioxide 25 mmol/L (22-32); Chloride 97 mmol/L (98-107); Estimated Glomerular Filt Rate > 60.0 mL/min (>60); Globulin 3.2 g/dL (1.7-4.1); Glucose 119 mg/dL (80-110); HEMOLYSIS < 15 (0-50); Potassium 3.4 mmol/L (3.4-5.1); Sodium 130 mmol/L (137-145); Total Protein 6.4 g/dL (6.3-8.2)
[2019-09-07 05:59] LABS: Procalcitonin 0.59 ng/mL (<0.5)
--- NOTE | 2019-09-07 10:32 | CM.DANOTE ---
DCP: Case received, EMR reviewed and met with patient. Introduced self and role. Was able to meet with patient to obtain some baseline information regarding health and living situation. DCP assessment completed with information currently available. Patient is a 59 year old male who admitted yesterday evening to the care of the hospitalist team. PCP: Was Dr. Odom, hasn't seen PCP in a while. Payer: confirmed: Medicare/[facility]. Patient came to the hospital via ambulance secondary to fever and abdominal pains. Patient was noted to have a temp of 100. He is Immuno-compromised secondary to a medication that he takes for rheumatoid arthritis. Patient currently holds diagnosis of sepsis and diverticulitis. Patient resides in [place], lives alone and is independent. 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 He has a daughter named Will, and other children in the area. He is alert and oriented. He is a full code and has history of smoking. Asked patient about his primary care provider. Stated, he doesn't have one, since he has been healthy. Let him know that resources can be given for primary provider, and [facility] has new provider as well. [facility] is another option. P: DCP to continue to follow and be available for any resources needed. Anticipate that patient will be here for a couple of days, due to his illness. He should be able to go home when he is medically stable. Maura Hunter RN/Inspector [place]
[2019-09-07] MEDS: HEPARIN 5,000 UNIT/ML VIAL 5000 UNIT SUBCUT ×2 (10:33→20:00)
[2019-09-07] MEDS: INFLUENZA VACCINE 0.5 ML SYRINGE IM (10:34)
--- NOTE | 2019-09-07 12:55 | P.PN_ITS ---
Subjective Subjective Date Patient Seen: 09/07/19 Interval history: Moose Huynh 59-year-old male with past medical history significant for rheumatoid arthritis who is immunosuppressed on Remicade who presented for abdominal pain with nausea, vomiting and diaphoresis. The patient is resting in bed and appears mildly uncomfortable. He complains of left lower quadrant abdominal pain and which he rates as a +8/10. The pain is aching in quality. He denies any further nausea, vomiting, fever or chills. He reports he tolerated Jell-O this morning. Plan to advance diet as tolerated. He has no other complaints and denies headache, shortness of breath, chest pain, nausea, vomiting, fever, chills, dysuria, or diarrhea. He has not had a bowel movement in 2 days and feels mildly constipated. He is voiding and eliminating without difficulty. He is up ambulating without assistance. Exam Vital Signs (past 8 hours): - 09/07/19 07:11 09/07/19 08:00 09/07/19 12:17 Temperature 100.3 F H 100.8 F H Pulse Rate 75 74 75 Respiratory Rate 18 18 Blood Pressure 101/47 L 107/60 Pulse Oximetry 90 L 93 92 Oxygen Delivery Method Room Air Oxygen Flow Rate 0 Narrative Exam Narrative: General: Older gentleman lying in bed and in no acute distress, appears mildly uncomfortable, well-developed, well-nourished, appropriately interactive. HEENT: Normocephalic, atraumatic. External ears without defect. Pupils equal, round, and reactive to light and accommodation. Anicteric sclerae, moist co njunctivae, and no lid lag. Neck: Supple with full range of motion. No jugular venous distension. No lymphadenopathy or thyromegaly. Cardiovascular: Regular rate and rhythm without murmurs, rubs, or gallops appreciated Pulmonary: Clear to auscultation bilaterally without crackles, wheezes, or rh onchi. Normal respiratory effort with no use of accessory muscles. Abdomen: Soft, bowel sounds present, tenderness to palpation in left lower quadrant, nondistended. No hepatosplenomegaly or masses appreciated. Extremities: No clubbing, cyanosis, or edema. Skin: Normal temperature, turgor, and texture; no rash, ulcers, or subcutaneous nodules appreciated. Neurological: Cranial nerves grossly intact. Psychiatric: Normal mood and affect. Alert and oriented to person, place, and time. Objective Labs Result Diagrams: 09/07/19 04:55 09/07/19 04:55 Labs: Laboratory Results - last 24 hr 09/06/19 09/06/19 09/06/19 15:13 16:15 16:15 WBC 22.2 H RBC 3.98 L Hgb 12.9 L Hct 37.6 L MCV 94.4 MCH 32.5 MCHC 34.4 RDW 12.9 Plt Count 231 Neut % (Auto) 84.2 H Lymph % (Auto) 6.9 L [place] % (Auto) 8.4 Eos % (Auto) 0.1 L Baso % (Auto) 0.4 Neut # (Auto) 88901 H Lymph # (Auto) 1500 [place] # (Auto) 1900 H Eos # (Auto) 0 Baso # (Auto) 100 PT 14.1 H INR 1.2 APTT 43 H Sodium Potassium Chloride Carbon Dioxide BUN Creatinine Estimated GFR BUN/Creatinine Ratio Glucose Lactate Calcium Magnesium Total Bilirubin Conjugated Bilirubin Unconjugated Bilirubin AST ALT Alkaline Phosphatase Total Protein Albumin Globulin Albumin/Globulin Ratio Lipase Procalcitonin Urine Color Urine Appearance Urine pH Ur Specific [place] Urine Protein Urine Glucose (UA) Urine Ketones Urine Occult Blood Urine Nitrate Urine Bilirubin Urine Urobilinogen Ur Leukocyte Esterase Urine RBC Urine WBC Amorphous Sediment Urine Bacteria Urine Mucus Ur Culture Indicated? Chlamy pneumoniae PCR Adenovirus (PCR) B.parapertussis DNA PCR Coronavirus OC43 (PCR) Coronavirus HKU1 (PCR) Coronavirus 229E (PCR) Coronavirus NL63 (PCR) Human Metapneumovir PCR Influenza A (RT-PCR) Flu a negative Influenza Type A (PCR) Influenza B (RT-PCR) Flu b negative Influenza Type B (PCR) M. pneumoniae (PCR) Parainfluenza 1 (PCR) Parainfluenza 2 (PCR) Parainfluenza 3 (PCR) Parainfluenza 4 (PCR) RSV (PCR) Entero/Rhino (PCR) 09/06/19 09/06/19 09/06/19 16:15 16:15 16:15 WBC RBC Hgb Hct MCV MCH MCHC RDW Plt Count Neut % (Auto) Lymph % (Auto) [place] % (Auto) Eos % (Auto) Baso % (Auto) Neut # (Auto) Lymph # (Auto) [place] # (Auto) Eos # (Auto) Baso # (Auto) PT INR APTT Sodium 132 L Potassium 3.5 Chloride 95 L Carbon Dioxide 25 BUN 14 Creatinine 0.90 Estimated GFR > 60.0 BUN/Creatinine Ratio 15.6 Glucose 142 H Lactate 0.9 Calcium 9.3 Magnesium Total Bilirubin 0.7 Conjugated Bilirubin Unconjugated Bilirubin AST 65 H ALT 52 H Alkaline Phosphatase 142 H Total Protein 8.0 Albumin 4.1 Globulin 3.9 Albumin/Globulin Ratio 1.1 Lipase 16 L Procalcitonin 0.62 H Urine Color Urine Appearance Urine pH Ur Specific [place] Urine Protein Urine Glucose (UA) Urine Ketones Urine Occult Blood Urine Nitrate Urine Bilirubin Urine Urobilinogen Ur Leukocyte Esterase Urine RBC Urine WBC Amorphous Sediment Urine Bacteria Urine Mucus Ur Culture Indicated? Chlamy pneumoniae PCR Adenovirus (PCR) B.parapertussis DNA PCR Coronavirus OC43 (PCR) Coronavirus HKU1 (PCR) Coronavirus 229E (PCR) Coronavirus NL63 (PCR) Human Metapneumovir PCR Influenza A (RT-PCR) Influenza Type A (PCR) Influenza B (RT-PCR) Influenza Type B (PCR) M. pneumoniae (PCR) Parainfluenza 1 (PCR) Parainfluenza 2 (PCR) Parainfluenza 3 (PCR) Parainfluenza 4 (PCR) RSV (PCR) Entero/Rhino (PCR) 09/06/19 09/06/19 09/06/19 16:15 17:30 21:35 WBC RBC Hgb Hct MCV MCH MCHC RDW Plt Count Neut % (Auto) Lymph % (Auto) [place] % (Auto) Eos % (Auto) Baso % (Auto) Neut # (Auto) Lymph # (Auto) [place] # (Auto) Eos # (Auto) Baso # (Auto) PT INR APTT Sodium Potassium Chloride Carbon Dioxide BUN Creatinine Estimated GFR BUN/Creatinine Ratio Glucose Lactate Calcium Magnesium 2.3 Total Bilirubin Conjugated Bilirubin Unconjugated Bilirubin AST ALT Alkaline Phosphatase Total Protein Albumin Globulin Albumin/Globulin Ratio Lipase Procalcitonin Urine Color Urine Appearance Urine pH Ur Specific [place] Urine Protein Urine Glucose (UA) Urine Ketones Urine Occult Blood Urine Nitrate Urine Bilirubin Urine Urobilinogen Ur Leukocyte Esterase Urine RBC 1-5/hpf Urine WBC None seen Amorphous Sediment 2+ Urine Bacteria None seen Urine Mucus 2+ H Ur Culture Indicated? Cult not indicated Chlamy pneumoniae PCR Not detected Adenovirus (PCR) Not detected B.parapertussis DNA PCR Not detected Coronavirus OC43 (PCR) Not detected Coronavirus HKU1 (PCR) Not detected Coronavirus 229E (PCR) Not detected Coronavirus NL63 (PCR) Not detected Human Metapneumovir PCR Not detected Influenza A (RT-PCR) Influenza Type A (PCR) Not detected Influenza B (RT-PCR) Influenza Type B (PCR) Not detected M. pneumoniae (PCR) Not detected Parainfluenza 1 (PCR) Not detected Parainfluenza 2 (PCR) Not detected Parainfluenza 3 (PCR) Not detected Parainfluenza 4 (PCR) Not detected RSV (PCR) Not detected Entero/Rhino (PCR) Not detected 09/06/19 09/07/19 09/07/19 22:45 04:55 04:55 WBC 20.9 H RBC 3.53 L Hgb 11.5 L Hct 33.2 L MCV 94.1 MCH 32.7 MCHC 34.7 RDW 13.1 Plt Count 213 Neut % (Auto) 81.8 H Lymph % (Auto) 8.6 L [place] % (Auto) 9.3 Eos % (Auto) 0.1 L Baso % (Auto) 0.2 Neut # (Auto) 30257 H Lymph # (Auto) 1800 [place] # (Auto) 1900 H Eos # (Auto) 0 Baso # (Auto) 0 PT INR APTT Sodium Potassium Chloride Carbon Dioxide BUN Creatinine Estimated GFR BUN/Creatinine Ratio Glucose Lactate Calcium Magnesium Total Bilirubin Conjugated Bilirubin Unconjugated Bilirubin AST ALT Alkaline Phosphatase Total Protein Albumin Globulin Albumin/Globulin Ratio Lipase Procalcitonin 0.59 H Urine Color Yellow Urine Appearance Clear Urine pH 6.5 Ur Specific [place] <1.005 Urine Protein 2+ H Urine Glucose (UA) Negative Urine Ketones Trace H Urine Occult Blood 3+ H Urine Nitrate Negative Urine Bilirubin Negative Urine Urobilinogen 1.0 Ur Leukocyte Esterase Negative Urine RBC 1-5/hpf Urine WBC None seen Amorphous Sediment Urine Bacteria None seen Urine Mucus Ur Culture Indicated? Cult not indicated Chlamy pneumoniae PCR Adenovirus (PCR) B.parapertussis DNA PCR Coronavirus OC43 (PCR) Coronavirus HKU1 (PCR) Coronavirus 229E (PCR) Coronavirus NL63 (PCR) Human Metapneumovir PCR Influenza A (RT-PCR) Influenza Type A (PCR) Influenza B (RT-PCR) Influenza Type B (PCR) M. pneumoniae (PCR) Parainfluenza 1 (PCR) Parainfluenza 2 (PCR) Parainfluenza 3 (PCR) Parainfluenza 4 (PCR) RSV (PCR) Entero/Rhino (PCR) 09/07/19 04:55 WBC RBC Hgb Hct MCV MCH MCHC RDW Plt Count Neut % (Auto) Lymph % (Auto) [place] % (Auto) Eos % (Auto) Baso % (Auto) Neut # (Auto) Lymph # (Auto) [place] # (Auto) Eos # (Auto) Baso # (Auto) PT INR APTT Sodium 130 L Potassium 3.4 Chloride 97 L Carbon Dioxide 25 BUN 9 Creatinine 0.80 Estimated GFR > 60.0 BUN/Creatinine Ratio 11.3 Glucose 119 H Lactate Calcium 8.1 L Magnesium Total Bilirubin 0.6 Conjugated Bilirubin 0.0 Unconjugated Bilirubin 0.5 AST 32 ALT 35 Alkaline Phosphatase 102 Total Protein 6.4 Albumin 3.2 L Globulin 3.2 Albumin/Globulin Ratio 1.0 Lipase Procalcitonin Urine Color Urine Appearance Urine pH Ur Specific [place] Urine Protein Urine Glucose (UA) Urine Ketones Urine Occult Blood Urine Nitrate Urine Bilirubin Urine Urobilinogen Ur Leukocyte Esterase Urine RBC Urine WBC Amorphous Sediment Urine Bacteria Urine Mucus Ur Culture Indicated? Chlamy pneumoniae PCR Adenovirus (PCR) B.parapertussis DNA PCR Coronavirus OC43 (PCR) Coronavirus HKU1 (PCR) Coronavirus 229E (PCR) Coronavirus NL63 (PCR) Human Metapneumovir PCR Influenza A (RT-PCR) Influenza Type A (PCR) Influenza B (RT-PCR) Influenza Type B (PCR) M. pneumoniae (PCR) Parainfluenza 1 (PCR) Parainfluenza 2 (PCR) Parainfluenza 3 (PCR) Parainfluenza 4 (PCR) RSV (PCR) Entero/Rhino (PCR) Assessment & Plan Assessment & Plan narrative: Moose Huynh 59-year-old male with past medical history significant for rheumatoid arthritis who is immunosuppressed on Remicade who presented for abdominal pain with nausea, vomiting and diaphoresis. 1. Acute sepsis ruled out. -Patient is immunosuppressed on Remicade. -Patient met SIRS criteria leukocytosis (WBC 22.2), procalcitonin 0.62, febrile (temp 100.2? F) with source diverticulitis, however, the patient was without end-organ dysfunction and therefore does not meet sepsis criteria. SOFA score is 1. 2. Acute diverticulitis, present on admission. Active. -Patient presented with left lower quadrant abdominal pain, nausea, vomiting, fever, chills, an immunocompromised on Remicade for rheumatoid arthritis. -Patient denies previous episodes of diverticulitis. No previous colonoscopy. No complaints of rectal bleeding. Previous history of E coli GI infection. -Initial WBC 22.2 and procalcitonin 0.62 and trending down. Continue to trend daily. -CT abdomen and pelvis with contrast and MRI abdomen and pelvis with and without contrast demonstrated moderate inflammatory change in the left pelvis with fluid tracking into the presacral space suspicious for acute diverticulitis. No abscess demonstrated at this time. -Patient has had no diarrhea and has not had a bowel movement in 1-2 days. Canceled GI stool panel as this is not clinically indicated. Respiratory PCR negative. -Continue levofloxacin 750 mg IV daily and metronidazole 500 mg IV every 6 hours. -Continue IV fluids with normal saline at 100 mL/hr. -Consulted general surgery, Dr. Rajput, who plans to see the patient later this afternoon. 3. Increased blood pressure without a diagnosis of hypertension, present on admission. Resolved. -Patient had elevated blood pressure of 153/87 on admission likely due to pain. -Continue to monitor blood pressure closely and treat as needed. 4. Tobacco dependence, chronic, present on admission. Stable. -Patient has a 40 pack year smoking history and smokes approximately 1 pack per day. -Continue nicotine patch as needed for nicotine withdrawal. -Discussed and had a recommended smoking cessation. Code status: Full code VTE prophylaxis: SCDs, heparin Disposition: Patient likely to discharge home in 1-2 days after acute diverticulitis flare has improved and he is able to tolerate PO intake. Quality VTE Deep Vein Thrombosis/Pulmonary Embolism Present on Admission: No
[2019-09-07] MEDS: SODIUM CHLORIDE 0.9% FLUSH 10 ML IV ×2 (15:15→20:00)
[2019-09-07] MEDS: POTASSIUM CHLORIDE 40 MEQ in SODIUM CHLORIDE 0.9% 500 ML 130 ML IV (15:40)
[2019-09-07] MEDS: DOCUSATE 100 MG CAPSULE PO (17:20)
[2019-09-07] MEDS: ACETAMINOPHEN 325 MG TABLET 650 MG PO (17:22)
--- NOTE | 2019-09-07 17:51 | PM.CN ---
History of Present Illness Consult details Date Patient Seen: 09/07/19 Time Patient Seen: 17:51 Chief complaint: fever/ bodyaches/ stomach pain/ headaches Reason for consult: Diverticulitis Requesting provider: Janey Cabral Narrative: This is a 59-yo man h/o rheumatoid arthritis on Remicade who came into the ER yesterday with c/o malaise and GI distress for 10 days. He thought he had the flu or E coli. His pain has been suprapubic and focal in the left lower quadrant, described as crampy pain. He has had associated symptoms of fevers and chills, diaphoresis, nausea without vomiting, body aches, poor appetite and weakness. He denies any previous bowel problems, denies diarrhea and says he has never had colonoscopy. He is on Remicade for RA and receives injections every 5 weeks the last being 2 weeks ago. He denies changes in urination. Denies debris in his urine or air in his urine. CT scan done in the ER was suggestive of diverticulitis, but inconclusive due to artifact from BL hip replacements. He had an abdominal MRI today which was c/w diverticulitis with free fluid. He is on IV abx, and his WBC is slowly coming down from 22 yesterday to 20.9 today. He continues to be febrile around 100.4-100.8. He says he is feeling better. He feels a bit backed up. He says he normally has a BM every morning after eating and having coffee. He is a current smoker, 1ppd for 40 years. ROS: Reports fevers and chills, diaphoresis, nausea without vomiting, body aches, poor appetite and weakness. Patient also endorses complaints of nasal congestion and sore throat at the onset of his symptoms. No complaints of headaches or dizziness. He does report having swollen cervical lymph nodes at the onset of symptoms. He has had no chest pain or palpitations and has no shortness of breath cough or wheezing. He denies changes in urination. He complaints of stiff and achy joints due to immobility being predominantly bed rest for the last 10 days. ROS is otherwise as per HPI, and otherwise negative after 13 system review. PE: GENERAL:Alert, comfortable appearing. in no apparent distress.Appears stated age. Answers questions promptly and appropriately. Vital signs noted. HENT: Normocephalic, atraumatic. Hearing intact. Oral mucosa is pink and moist. EYES: Conjunctiva pink, sclera white, no periorbital swelling. CARDIOVASCULAR: Regular rate. No pedal edema. RESPIRATORY: Non-tachypneic, breathing comfortably on room air. GASTROINTESTINAL: Abdomen soft and non-distended; Focal tenderness to palpation in the suprapubic region and left lower quadrant GENITALURINARY: No flank tenderness. MUSCULOSKELETAL: Equal tone and mass bilaterally. SKIN: Warm, dry, soft, appropriate color for ethnicity. No other lesions, rashes, or wounds. NEURO: Alert and Oriented X 3. No gross sensory deficits, or cognitive issues. PSYCH: Appropriate affect and mood. Meds Home Medications and Allergies Home Medications Medication Instructions Recorded Confirmed Type Remicade See Rx Instructions .ROUTE 12/28/12 09/06/19 History .COMPLEX #0 ibuprofen [Advil] 600 mg PO PRN #0 12/28/12 09/06/19 History Allergies Allergy/AdvReac Type Severity Reaction Status Date / Time No Known Drug Allergies Allergy Verified 09/06/19 15:11 Exam Vital Signs (past 8 hours): - 09/07/19 12:17 09/07/19 16:05 09/07/19 17:22 Temperature 100.8 F H 100.4 F H 100.4 F H Pulse Rate 75 75 Respiratory Rate 18 16 Blood Pressure 107/60 124/69 Pulse Oximetry 92 91 09/07/19 17:23 Temperature 100.4 F H Pulse Rate Respiratory Rate Blood Pressure Pulse Oximetry Oxygen Delivery Method Room Air Oxygen Flow Rate 0 Objective Imaging MRI - abdomen: Radiologist's impression: Diverticulitis, small amount of free fluid, no free air Labs Result Diagrams: 09/07/19 04:55 09/07/19 04:55 Labs: Laboratory Results - last 24 hr 09/06/19 09/06/19 09/06/19 16:15 17:30 21:35 WBC RBC Hgb Hct MCV MCH MCHC RDW Plt Count Neut % (Auto) Lymph % (Auto) [place] % (Auto) Eos % (Auto) Baso % (Auto) Neut # (Auto) Lymph # (Auto) [place] # (Auto) Eos # (Auto) Baso # (Auto) Sodium Potassium Chloride Carbon Dioxide BUN Creatinine Estimated GFR BUN/Creatinine Ratio Glucose Calcium Magnesium 2.3 Total Bilirubin Conjugated Bilirubin Unconjugated Bilirubin AST ALT Alkaline Phosphatase Total Protein Albumin Globulin Albumin/Globulin Ratio Procalcitonin Urine Color Urine Appearance Urine pH Ur Specific [place] Urine Protein Urine Glucose (UA) Urine Ketones Urine Occult Blood Urine Nitrate Urine Bilirubin Urine Urobilinogen Ur Leukocyte Esterase Urine RBC 1-5/hpf Urine WBC None seen Amorphous Sediment 2+ Urine Bacteria None seen Urine Mucus 2+ H Ur Culture Indicated? Cult not indicated Chlamy pneumoniae PCR Not detected Adenovirus (PCR) Not detected B.parapertussis DNA PCR Not detected Coronavirus OC43 (PCR) Not detected Coronavirus HKU1 (PCR) Not detected Coronavirus 229E (PCR) Not detected Coronavirus NL63 (PCR) Not detected Human Metapneumovir PCR Not detected Influenza Type A (PCR) Not detected Influenza Type B (PCR) Not detected M. pneumoniae (PCR) Not detected Parainfluenza 1 (PCR) Not detected Parainfluenza 2 (PCR) Not detected Parainfluenza 3 (PCR) Not detected Parainfluenza 4 (PCR) Not detected RSV (PCR) Not detected Entero/Rhino (PCR) Not detected 09/06/19 09/07/19 09/07/19 22:45 04:55 04:55 WBC 20.9 H RBC 3.53 L Hgb 11.5 L Hct 33.2 L MCV 94.1 MCH 32.7 MCHC 34.7 RDW 13.1 Plt Count 213 Neut % (Auto) 81.8 H Lymph % (Auto) 8.6 L [place] % (Auto) 9.3 Eos % (Auto) 0.1 L Baso % (Auto) 0.2 Neut # (Auto) 90091 H Lymph # (Auto) 1800 [place] # (Auto) 1900 H Eos # (Auto) 0 Baso # (Auto) 0 Sodium Potassium Chloride Carbon Dioxide BUN Creatinine Estimated GFR BUN/Creatinine Ratio Glucose Calcium Magnesium Total Bilirubin Conjugated Bilirubin Unconjugated Bilirubin AST ALT Alkaline Phosphatase Total Protein Albumin Globulin Albumin/Globulin Ratio Procalcitonin 0.59 H Urine Color Yellow Urine Appearance Clear Urine pH 6.5 Ur Specific [place] <1.005 Urine Protein 2+ H Urine Glucose (UA) Negative Urine Ketones Trace H Urine Occult Blood 3+ H Urine Nitrate Negative Urine Bilirubin Negative Urine Urobilinogen 1.0 Ur Leukocyte Esterase Negative Urine RBC 1-5/hpf Urine WBC None seen Amorphous Sediment Urine Bacteria None seen Urine Mucus Ur Culture Indicated? Cult not indicated Chlamy pneumoniae PCR Adenovirus (PCR) B.parapertussis DNA PCR Coronavirus OC43 (PCR) Coronavirus HKU1 (PCR) Coronavirus 229E (PCR) Coronavirus NL63 (PCR) Human Metapneumovir PCR Influenza Type A (PCR) Influenza Type B (PCR) M. pneumoniae (PCR) Parainfluenza 1 (PCR) Parainfluenza 2 (PCR) Parainfluenza 3 (PCR) Parainfluenza 4 (PCR) RSV (PCR) Entero/Rhino (PCR) 09/07/19 04:55 WBC RBC Hgb Hct MCV MCH MCHC RDW Plt Count Neut % (Auto) Lymph % (Auto) [place] % (Auto) Eos % (Auto) Baso % (Auto) Neut # (Auto) Lymph # (Auto) [place] # (Auto) Eos # (Auto) Baso # (Auto) Sodium 130 L Potassium 3.4 Chloride 97 L Carbon Dioxide 25 BUN 9 Creatinine 0.80 Estimated GFR > 60.0 BUN/Creatinine Ratio 11.3 Glucose 119 H Calcium 8.1 L Magnesium Total Bilirubin 0.6 Conjugated Bilirubin 0.0 Unconjugated Bilirubin 0.5 AST 32 ALT 35 Alkaline Phosphatase 102 Total Protein 6.4 Albumin 3.2 L Globulin 3.2 Albumin/Globulin Ratio 1.0 Procalcitonin Urine Color Urine Appearance Urine pH Ur Specific [place] Urine Protein Urine Glucose (UA) Urine Ketones Urine Occult Blood Urine Nitrate Urine Bilirubin Urine Urobilinogen Ur Leukocyte Esterase Urine RBC Urine WBC Amorphous Sediment Urine Bacteria Urine Mucus Ur Culture Indicated? Chlamy pneumoniae PCR Adenovirus (PCR) B.parapertussis DNA PCR Coronavirus OC43 (PCR) Coronavirus HKU1 (PCR) Coronavirus 229E (PCR) Coronavirus NL63 (PCR) Human Metapneumovir PCR Influenza Type A (PCR) Influenza Type B (PCR) M. pneumoniae (PCR) Parainfluenza 1 (PCR) Parainfluenza 2 (PCR) Parainfluenza 3 (PCR) Parainfluenza 4 (PCR) RSV (PCR) Entero/Rhino (PCR) Assessment & Plan Assessment and plan (1) Diverticulitis: Current visit: Yes Status: Acute (2) Sepsis: Qualifiers: Sepsis acute organ dysfunction status: unspecified Sepsis type: sepsis due to unspecified organism Qualified Code(s): A41.9 - Sepsis, unspecified organism Current visit: Yes Status: Acute (3) Current smoker: Current visit: Yes Status: Acute (4) Leukocytosis: Current visit: Yes Status: Acute Assessment & Plan narrative: This is a 59-year-old man with rheumatoid arthritis who comes in with 10 days of abdominal pain and findings consistent with diverticulitis. Recommendations: Continue IV antibiotic treatment Clear liquid diet Would not advance diet until white blood cell count is normal and pain is gone Would hold bowel regimen until white blood cell count is normal and pain is gone Ambulate frequently Work on smoking cessation Once his white blood cell count is normal and his pain is resolved he may be discharged on oral antibiotics to complete a full course of 10 days of antibiotics. He should have a colonoscopy in about 8-12 weeks, once he is healed up from this flare, to evaluate for malignancy. Please call if further questions arise. Time Spent With Patient Time with patient: 25 - 35 minutes
--- NOTE | 2019-09-07 19:20 | PC.NURSE ---
Addendum entered by Zulay Perea R.N. 09/07/19 22:31: With sleep 02 saturation level on room air 92%. IV fluids infusing as ordered without difficulty left inner forearm/ac. Addendum entered by Zulay Perea R.N. 09/07/19 22:19: Now resting quietly in bed with eyes closed. Keeps head of bed elevated. Continuous pulse oximeter in place. Room air saturation level 91% with sleep. Has denied nausea all shift. Rates abdominal pain 8/10. Relief with dilaudid. Pt requested this every 3 hours. Afebrile with last check. Pt reports abdominal pain increases after voiding. Dr. Ortega was informed of this when rounds were made by surgeon this evening shift. IV antibiotics infused as ordered. Original Note: Pt c/o abdominal pain 8/10 and was given iv dilaudid as ordered. Denies nausea. Taking sips clear liquids. Dr. Ortega has seen pt this evening. IV potassium infusing as ordered. Plan to proceed with care as in place per Dr. Ortega. Dr. Cabral was informed of pt's temp 100.4 and tylenol was given. Refuses scd's.
[2019-09-07] MEDS: levoFLOXacin 750 MG/150 ML PIGGYBACK 100 MG IV (20:36)
[2019-09-08] VITALS (7 sets, daily range): BP systolic 109–132; BP diastolic 56–82; PULSE 60–70; RESP 16–20; TEMP 36.6–37.5; O2SAT 93–95
[2019-09-08] MEDS: HYDROMORPHONE 0.5 MG INJ IV ×5 (00:52→20:01)
[2019-09-08] MEDS: metroNIDAZOLE 500 MG/100 ML PIGGYBACK 100 MG IV ×4 (00:52→20:00)
[2019-09-08 06:02] LABS: Blood Urea Nitrogen 7 mg/dL (9-20); Calcium 8.2 mg/dL (8.4-10.2); Carbon Dioxide 26 mmol/L (22-32); Chloride 98 mmol/L (98-107); Estimated Glomerular Filt Rate > 60.0 mL/min (>60); Glucose 121 mg/dL (80-110); HEMOLYSIS < 15 (0-50); Potassium 3.8 mmol/L (3.4-5.1); Sodium 131 mmol/L (137-145)
[2019-09-08 06:12] LABS: Add Manual Diff / Slide Review NO; Basophils Absolute Auto 0 /uL (0-100); Basophils Percent Auto 0.1 % (0-2); Eosinophils Absolute Auto 100 /uL (0-450); Eosinophils Percent Auto 0.6 % (2-4); Hematocrit 31.6 % (41-53); Hemoglobin 11.1 g/dL (13.5-17.5); Lymphocytes Absolute Auto 1700 /uL (1100-4500); Lymphocytes Percent Auto 8.1 % (25-40); Mean Corpuscular Hemoglobin 33.1 PG (26-34); Mean Corpuscular Volume 94.4 fL (80-100); Monocytes Absolute Auto 1600 /uL (0-900); Monocytes Percent Auto 7.2 % (3-14); Neutrophils Absolute Auto 18100 /uL (1500-7000); Platelet Count 218 X10^3/uL (150-400); Red Blood Cell Count 3.35 X10^6/uL (4.5-5.9); Red Cell Distribution Width 12.9 % (11.6-14.8); White Blood Cell Count 21.5 X10^3/uL (4.5-11.0)
[2019-09-08] MEDS: SODIUM CHLORIDE 0.9% 1,000 ML 100 ML IV (06:17)
[2019-09-08 07:29] LABS: Procalcitonin 0.55 ng/mL (<0.5)
--- NOTE | 2019-09-08 07:44 | P.PN_ITS ---
Subjective Subjective Date Patient Seen: 09/08/19 Interval history: Moose Huynh 59-year-old male with past medical history significant for rheumatoid arthritis who is immunosuppressed on Remicade who presented for abdominal pain with nausea, vomiting and diaphoresis. The patient is resting in bed and now appears comfortable. He complains of left lower quadrant abdominal pain has significantly improved over last 24 hours. He rates the pain a +4/10 which is aching with occasional intermittent shooting quality. He denies any further nausea, vomiting, diaphoresis, fever or chills. He is tolerating clear liquid diet and plan to advance diet as tolerated. He has no other complaints and denies headache, shortness of breath, chest pain, nausea, vomiting, fever, chills, dysuria, or diarrhea. He had a normal small well-formed BM today. He is voiding and eliminating without difficulty. He is up ambulating without assistance. Exam Vital Signs (past 8 hours): - 09/08/19 04:00 09/08/19 07:30 Temperature 98.6 F 98.2 F Pulse Rate 61 60 Respiratory Rate 20 16 Blood Pressure 116/61 109/56 L Pulse Oximetry 95 94 Oxygen Delivery Method Room Air Oxygen Flow Rate 0 Narrative Exam Narrative: General: Older gentleman lying in bed and in no acute distress, appears mildly uncomfortable, well-developed, well-nourished, appropriately interactive. HEENT: Normocephalic, atraumatic. External ears without defect. Pupils equal, round, and reactive to light and accommodation. Anicteric sclerae, moist conjunctivae, and no lid lag. Neck: Supple with full range of motion. No jugular venous distension. No lymphadenopathy or thyromegaly. Cardiovascular: Regular rate and rhythm without murmurs, rubs, or gallops appreciated Pulmonary: Clear to auscultation bilaterally without crackles, wheezes, or rhonchi. Normal respiratory effort with no use of accessory muscles. Abdomen: Soft, bowel sounds present, tenderness to palpation in left lower quadrant improved, nondistended. No rebound or guarding. No hepatosplenomegaly or masses appreciated. Extremities: No clubbing, cyanosis, or edema. Skin: Normal temperature, turgor, and texture; no rash, ulcers, or subcutaneous nodules appreciated. Neurological: Cranial nerves grossly intact. Psychiatric: Normal mood and affect. Alert and oriented to person, place, and time. Objective Labs Result Diagrams: 09/08/19 04:55 09/08/19 04:55 Labs: Laboratory Results - last 24 hr 09/08/19 09/08/19 09/08/19 04:55 04:55 04:55 WBC 21.5 H RBC 3.35 L Hgb 11.1 L Hct 31.6 L MCV 94.4 MCH 33.1 MCHC 35.0 RDW 12.9 Plt Count 218 Neut % (Auto) 84.0 H Lymph % (Auto) 8.1 L [place] % (Auto) 7.2 Eos % (Auto) 0.6 L Baso % (Auto) 0.1 Neut # (Auto) 88614 H Lymph # (Auto) 1700 [place] # (Auto) 1600 H Eos # (Auto) 100 Baso # (Auto) 0 Sodium 131 L Potassium 3.8 Chloride 98 Carbon Dioxide 26 BUN 7 L Creatinine 0.70 Estimated GFR > 60.0 BUN/Creatinine Ratio 10.0 Glucose 121 H Calcium 8.2 L Procalcitonin 0.55 H Assessment & Plan Assessment & Plan narrative: Moose Huynh 59-year-old male with past medical history significant for rheumatoid arthritis who is immunosuppressed on Remicade who presented for abdominal pain with nausea, vomiting and diaphoresis. 1. Acute diverticulitis, present on admission. Active. -Patient presented with left lower quadrant abdominal pain, nausea, vomiting, fever, chills, an immunocompromised on Remicade for rheumatoid arthritis. -Patient denies previous episodes of diverticulitis. No previous colonoscopy. No complaints of rectal bleeding. Previous history of E coli GI infection. -Initial WBC 22.2 and procalcitonin 0.62. WBC stable but still highly elevated at 21.5 and procalcitonin trending down now 0.55. Continue to trend WBC and procalcitonin daily. -CT abdomen and pelvis with contrast and MRI abdomen and pelvis with and without contrast demonstrated moderate inflammatory change in the left pelvis with fluid tracking into the presacral space suspicious for acute diverticulitis. No abs cess demonstrated at this time. -Patient has had no diarrhea and has not had a bowel movement in 1-2 days. Canceled GI stool panel as this is not clinically indicated. Respiratory PCR negative. -Continue levofloxacin 750 mg IV daily and metronidazole 500 mg IV every 6 hours. -Discontinued IV fluid as patient is adequately hydrated and tolerating clear liquid diet. Plan to advance diet as tolerated. -Consulted general surgery, Dr. Mueller, who recommends advancing diet as tolerated, continuing antibiotics as above, and colonoscopy in 8 weeks. 2. Increased blood pressure without a diagnosis of hypertension, present on admission. Resolved. -Patient had elevated blood pressure of 153/87 on admission likely due to pain. -Continue to monitor blood pressure closely and treat if needed. SBP average 100-120's 3. Tobacco dependence, chronic, present on admission. Stable. -Patient has a 40 pack year smoking history and smokes approximately 1 pack per day. -Continue nicotine patch as needed for nicotine withdrawal. -Discussed and recommended smoking cessation indefinitely. Patient reports he plans to abstain indefinitely. 4. Acute sepsis ruled out. -Patient is immunosuppressed on Remicade. -Patient met SIRS criteria leukocytosis (WBC 22.2), procalcitonin 0.62, febrile (temp 100.2? F) with source diverticulitis, however, the patient was without end-organ dysfunction and therefore does not meet sepsis criteria. SOFA score is 1. Code status: Full code VTE prophylaxis: SCDs, heparin Disposition: Patient likely to discharge home in 1-2 days after acute diverticulitis flare has improved and he is able to tolerate PO intake. Quality VTE Deep Vein Thrombosis/Pulmonary Embolism Present on Admission: No
[2019-09-08] MEDS: SODIUM CHLORIDE 0.9% FLUSH 10 ML IV ×2 (08:48→20:01)
[2019-09-08] MEDS: HEPARIN 5,000 UNIT/ML VIAL 5000 UNIT SUBCUT ×2 (08:48→20:01)
--- NOTE | 2019-09-08 16:01 | PM.PN.1 ---
Subjective Subjective Date Patient Seen: 09/08/19 Time Patient Seen: 16:02 Interval history: No acute interval events. Abdominal pain left lower quadrant improved over the past 24 hours. Afebrile. Hungry, tolerating clear liquid diet Exam Vital Signs (past 8 hours): - 09/08/19 12:35 09/08/19 15:20 Temperature 97.8 F 98.4 F Pulse Rate 68 70 Respiratory Rate 16 19 Blood Pressure 129/65 130/82 Pulse Oximetry 93 94 Oxygen Delivery Method Room Air Oxygen Flow Rate 0 Narrative Exam Narrative: General adult male alert oriented no acute distress Abdomen soft nondistended mild tenderness left lower quadrant patient reports significantly improved from yesterday. Objective Labs Result Diagrams: 09/08/19 04:55 09/08/19 04:55 Labs: Laboratory Results - last 24 hr 09/08/19 09/08/19 09/08/19 04:55 04:55 04:55 WBC 21.5 H RBC 3.35 L Hgb 11.1 L Hct 31.6 L MCV 94.4 MCH 33.1 MCHC 35.0 RDW 12.9 Plt Count 218 Neut % (Auto) 84.0 H Lymph % (Auto) 8.1 L [place] % (Auto) 7.2 Eos % (Auto) 0.6 L Baso % (Auto) 0.1 Neut # (Auto) 70850 H Lymph # (Auto) 1700 [place] # (Auto) 1600 H Eos # (Auto) 100 Baso # (Auto) 0 Sodium 131 L Potassium 3.8 Chloride 98 Carbon Dioxide 26 BUN 7 L Creatinine 0.70 Estimated GFR > 60.0 BUN/Creatinine Ratio 10.0 Glucose 121 H Calcium 8.2 L Procalcitonin 0.55 H Assessment & Plan Assessment & Plan narrative: 59-year-old male admitted to the hospital with acute uncomplicated diverticulitis on her Remicade for rheumatoid arthritis. Patient reports that his abdominal pain is significantly improved over the past interval 24 hours and on exam he has very mild tenderness no evidence of peritonitis. I reviewed his laboratory studies which include a white blood cell count of 22 today, 21 yesterday. Despite this procalcitonin is nearly normal at 0.55 and down trending. -trial of regular diet if worsening abdominal pain will back off to clears or NPO. -continue IV antibiotics. -will need colonoscopy in 8 weeks Quality VTE Deep Vein Thrombosis/Pulmonary Embolism Present on Admission: No
[2019-09-08] MEDS: levoFLOXacin 750 MG/150 ML PIGGYBACK 100 MG IV (21:22)
[2019-09-09] MEDS: metroNIDAZOLE 500 MG/100 ML PIGGYBACK 100 MG IV ×2 (00:34→06:03)
[2019-09-09] MEDS: MELATONIN 3 MG TABLET PO (01:09)
[2019-09-09 05:05] VITALS: BP 133/68; PULSE 62; RESP 20; TEMP 36.8; O2SAT 94
--- NOTE | 2019-09-09 05:13 | PC.NURSE ---
Pt requesting sleep aide. Per Justin LOPEZ give 3 mg melatonin.
[2019-09-09 05:44] LABS: Add Manual Diff / Slide Review NO; Basophils Absolute Auto 0 /uL (0-100); Basophils Percent Auto 0.1 % (0-2); Eosinophils Absolute Auto 100 /uL (0-450); Eosinophils Percent Auto 0.9 % (2-4); Hematocrit 31.5 % (41-53); Hemoglobin 10.8 g/dL (13.5-17.5); Lymphocytes Absolute Auto 1700 /uL (1100-4500); Lymphocytes Percent Auto 11.1 % (25-40); Mean Corpuscular HGB Conc 34.3 % (30-36); Mean Corpuscular Hemoglobin 32.5 PG (26-34); Mean Corpuscular Volume 94.7 fL (80-100); Monocytes Absolute Auto 1000 /uL (0-900); Monocytes Percent Auto 6.2 % (3-14); Neutrophils Absolute Auto 12600 /uL (1500-7000); Neutrophils Percent Auto 81.7 % (50-75); Platelet Count 280 X10^3/uL (150-400); Red Blood Cell Count 3.33 X10^6/uL (4.5-5.9); Red Cell Distribution Width 13.1 % (11.6-14.8); White Blood Cell Count 15.4 X10^3/uL (4.5-11.0)
[2019-09-09 05:53] LABS: Alanine Aminotransferase 22 IU/L (<50); Albumin 3.1 g/dL (3.5-5.0); Albumin Globulin Ratio 0.9 (1.0-2.8); Alkaline Phosphatase 90 U/L (38-126); Aspartate Aminotransferase 25 IU/L (17-59); BUN Creatinine Ratio 8.6 (6-22); Bilirubin Total 0.5 mg/dL (0.2-1.3); Blood Urea Nitrogen 6 mg/dL (9-20); Calcium 8.6 mg/dL (8.4-10.2); Carbon Dioxide 26 mmol/L (22-32); Chloride 101 mmol/L (98-107); Estimated Glomerular Filt Rate > 60.0 mL/min (>60); Globulin 3.5 g/dL (1.7-4.1); Glucose 138 mg/dL (80-110); HEMOLYSIS < 15 (0-50); Magnesium 2.3 mg/dL (1.6-2.3); Potassium 3.8 mmol/L (3.4-5.1); Sodium 137 mmol/L (137-145); Total Protein 6.6 g/dL (6.3-8.2)
[2019-09-09] MEDS: SODIUM CHLORIDE 0.9% 1,000 ML 100 ML IV (06:03)
[2019-09-09 06:07] LABS: Procalcitonin 0.33 ng/mL (<0.5)
[2019-09-09 07:40] VITALS: BP 134/75; PULSE 57; RESP 16; TEMP 36.6; O2SAT 96
[2019-09-09] MEDS: SODIUM CHLORIDE 0.9% FLUSH 10 ML IV (08:20)
--- NOTE | 2019-09-09 08:42 | CM.DPC ---
DCP: continued: case received, EMR reviewed and d/c to home order noted by Dr. Cabral. Checked in with BERTA Hanks who noted that Dr. Cbaral had not seen pt yet this morning but had planned to see how pt did with full liquid diet for breakfast and that he may need to stay for lunch to make sure his is tolerating his diet. [facility] have been consulting: no note yet from that team today. Met then with pt who is aware d/c is anticipated for today. His daughter will be picking him up. Asked about PCP as Dr. Cabral advises he is to follow up with PCP within a week. He confirmed that he is established with the [facility] in [place] (and note his insurance is Medicare and [facility]). The provider he did see is no longer there but since he is established he will be able to see any available provider. P: home later today if tolerates diet advancement.
[2019-09-09] MEDS: HEPARIN 5,000 UNIT/ML VIAL 5000 UNIT SUBCUT (08:43)
--- NOTE | 2019-09-09 08:45 | P.DS_ITS ---
History of Present Illness History of Present Illness Date Patient Seen: 09/06/19 Chief complaint: fever/ bodyaches/ stomach pain/ headaches Narrative: Written by Dario HYLTON: Mr. Moose Huynh is a 59-year-old male with a history significant for rheumatoid arthritis on Remicade who reports being ill for approximately 10 days with progressive abdominal pain in the left lower quadrant. Describes pain as crampy and had associated symptoms of fevers and chills, diaphoresis, nausea without vomiting, body aches, poor appetite and weakness. Patient also endorses complaints of nasal congestion and sore throat at the onset of his symptoms. He reports never having previous bowel problems and denies diarrhea and states he has never had colonoscopy. He is on Remicade for rheumatoid arthritis and received injections every 5 weeks the last being 2 weeks ago. Reports no complaints of headaches or dizziness. He does report having swollen cervical lymph nodes at the onset of symptoms. He has had no chest pain or palpitations and has no shortness of breath cough or wheezing. He denies changes in urination. He complaints of stiff and achy joints due to immobility being predominantly bed rest for the last 10 days. Upon arrival patient has temperature of 100.2?, heart rate 95, blood pressure 153/87, respirations 14 saturating 95% on room air. Abdominal pelvis CT is obtained which finds extraperitoneal edema most prominent left midline most likely associated with diverticulitis, exam is limited due to imaging artifact from bilateral hip replacements. On laboratory now patient has an elevated white count at 12 2 point, hemoglobin of 12.9, hematocrit of 37.6 and platelets of 231. On coagulation he has a PT of 14.1, INR 1.2, PTT of 43. His sodium is low at 132 with a potassium of 3.5. His BUN is 14 and creatinine is 0.9 and a nonfasting glucose of 142. On liver function is a total bilirubin of 0.7, AST 65, ALT of 52 and alkaline phosphatase of 142. His albumin is 4.1. He has lipase of 16. His lactic acid 0.9 and procalcitonin 0.62. Flu screening is negative. In the ER the patient has received 2 L of IV fluid Zofran for nausea and was started on Levaquin 500 mg IV and Flagyl 500 mg IV. The patient is admitted to the medicine service for diverticulitis. Discharge Providers Provider Date of admission: 09/06/19 20:30 Discharge Date: 09/09/19 Primary care physician: Lupillo Odom MD Consults: 09/06/19 20:41 Consult to Discharge Planning Routine Comment: 09/07/19 00:51 Consult to General Surgery Routine Comment: Consulting Provider: Tamara Ortega Reason for consultation: Abdominal pain, diverticulitis Has provider been notified: No Discharge provider: Janey Cabral DO Summary Hospital Course Discharge Diagnosis: 1. Acute diverticulitis, present on admission. Resolving. 2. Increased blood pressure without a diagnosis of hypertension, present on admission. Resolved. 3. Tobacco dependence, chronic, present on admission. Stable. 4. Acute sepsis ruled out. Hospital Course: Moose Huynh 59-year-old male with past medical history significant for rheumatoid arthritis who is immunosuppressed on Remicade who presented for abdominal pain with nausea, vomiting and diaphoresis. 1. Acute diverticulitis, present on admission. Resolving -Patient presented with left lower quadrant abdominal pain, nausea, vomiting, fever, chills, an immunocompromised on Remicade for rheumatoid arthritis. -Patient denies previous episodes of diverticulitis. No previous colonoscopy. No complaints of rectal bleeding. Previous history of E coli GI infection. -Initial WBC 22.2 and procalcitonin 0.62. WBC trending down now 15.4 and procalcitonin normalized at 0.33. Continued to trend WBC and procalcitonin daily. -CT abdomen and pelvis with contrast and MRI abdomen and pelvis with and without contrast demonstrated moderate inflammatory change in the left pelvis with fluid tracking into the presacral space suspicious for acute diverticulitis. No abscess demonstrated at this time. -Patient has had no diarrhea and has not had a bowel movement in 1-2 days. Ca nceled GI stool panel as this is not clinically indicated. Respiratory PCR negative. -Continued levofloxacin 750 mg IV daily and metronidazole 500 mg IV every 6 hours. Discharged on levofloxacin 750 mg PO daily and metronidazole 500 mg 3 times daily for additional 12 days to complete a total 14 day course of antibiotics. -Continued IV fluids until adequately hydrated then discontinued. Advanced diet to heart healthy which he tolerated well. -Consulted general surgery, Dr. Mueller, who recommends advancing diet as tolerated, continuing antibiotics as above, and outpatient colonoscopy in [address] [place] [address]. Recommended bowel regimen to keep BMs regular and avoid constipation with Colace 100 mg twice daily and MiraLax 17 g daily as needed for constipation. 2. Increased blood pressure without a diagnosis of hypertension, present on admission. Resolved. -Patient had elevated blood pressure of 153/87 on admission likely due to pain. -Continued to monitor blood pressure closely and treat if needed. SBP average 100-120's 3. Tobacco dependence, chronic, present on admission. Stable. -Patient has a 40 pack year smoking history and smokes approximately 1 pack per day. -Continued nicotine patch daily as needed for nicotine withdrawal. -Discussed and recommended smoking cessation indefinitely. Patient reports he plans to abstain indefinitely. 4. Acute sepsis ruled out. -Patient is immunosuppressed on Remicade. -Patient met SIRS criteria leukocytosis (WBC 22.2), procalcitonin 0.62, febrile (temp 100.2? F) with source diverticulitis, however, the patient was without end-organ dysfunction and therefore does not meet sepsis criteria. SOFA score is 1. Exam Vital Signs (past 8 hours): - 09/09/19 05:05 Temperature 98.3 F Pulse Rate 62 Respiratory Rate 20 Blood Pressure 133/68 Pulse Oximetry 94 Oxygen Delivery Method Room Air Oxygen Flow Rate 0 Narrative Exam Narrative: General: Older gentleman lying in bed and in no acute distress, appears mildly uncomfortable, well-developed, well-nourished, appropriately interactive. HEENT: Normocephalic, atraumatic. External ears without defect. Pupils equal, round, and reactive to light and accommodation. Anicteric sclerae, moist conjunctivae, and no lid lag. Neck: Supple with full range of motion. No jugular venous distension. No lymphadenopathy or thyromegaly. Cardiovascular: Regular rate and rhythm without murmurs, rubs, or gallops apprec iated Pulmonary: Clear to auscultation bilaterally without crackles, wheezes, or rhonchi. Normal respiratory effort with no use of accessory muscles. Abdomen: Soft, bowel sounds present, nondistended. Mild tenderness to palpation in left lower quadrant significantly improved. No rebound or guarding. No hepatosplenomegaly or masses appreciated. Extremities: No clubbing, cyanosis, or edema. Skin: Normal temperature, turgor, and texture; no rash, ulcers, or subcutaneous nodules appreciated. Neurological: Cranial nerves grossly intact. Psychiatric: Normal mood and affect. Alert and oriented to person, place, and time. Objective Labs Result Diagrams: 09/09/19 05:00 09/09/19 05:00 Labs: Laboratory Results - last 24 hr 09/09/19 09/09/19 09/09/19 05:00 05:00 05:00 WBC 15.4 H RBC 3.33 L Hgb 10.8 L Hct 31.5 L MCV 94.7 MCH 32.5 MCHC 34.3 RDW 13.1 Plt Count 280 Neut % (Auto) 81.7 H Lymph % (Auto) 11.1 L [place] % (Auto) 6.2 Eos % (Auto) 0.9 L Baso % (Auto) 0.1 Neut # (Auto) 61096 H Lymph # (Auto) 1700 [place] # (Auto) 1000 H Eos # (Auto) 100 Baso # (Auto) 0 Sodium 137 Potassium 3.8 Chloride 101 Carbon Dioxide 26 BUN 6 L Creatinine 0.70 Estimated GFR > 60.0 BUN/Creatinine Ratio 8.6 Glucose 138 H Calcium 8.6 Magnesium 2.3 Total Bilirubin 0.5 AST 25 ALT 22 Alkaline Phosphatase 90 Total Protein 6.6 Albumin 3.1 L Globulin 3.5 Albumin/Globulin Ratio 0.9 L Procalcitonin 0.33 Discharge Plan Discharge Plan Patient Disposition: Home Discharge comment: You're being discharged home. You have diverticulitis and have been prescribed levofloxacin 750 mg daily and metronidazole 500 mg 3 times daily for 12 days to complete a total of 14 days of antibiotics. Please follow- up with your primary care physician in the next 1 week regarding your hospitalization. You may take Colace (stool softener) 100 mg twice daily as n eeded for constipation and MiraLax 17 g daily as needed for constipation both titrated both to effect. Discharge orders & Medications Prescriptions: New docusate sodium [DOK] 100 mg Capsule 100 mg PO BID PRN (Reason: Constipation) Qty: 60 RF: 0 levofloxacin 750 mg tablet 750 mg PO DAILY Qty: 12 RF: 0 metronidazole 500 mg tablet 500 mg PO TID Qty: 36 RF: 0 nicotine 14 mg/24 hr Patch 24 Hour 14 mg topical DAILY Qty: 28 RF: 0 polyethylene glycol 3350 17 gram Powder In Packet 17 gram PO DAILY PRN (Reason: Constipation) Qty: 30 RF: 0 acetaminophen 325 mg Tablet 650 mg PO Q4HR PRN (Reason: Fever/Mild Pain (1-3)) Qty: 30 RF: 0 Continued Remicade 100 MG recon soln See Rx Instructions .ROUTE .COMPLEX Qty: 0 RF: 0 ibuprofen [Advil] 200 MG tablet 600 mg PO PRN Qty: 0 RF: 0 Follow up/Referrals: Lupillo Odom MD [Primary Care Provider] - () Diet/Activity/Treatments Diet: Diet as Tolerated, Low-fat, Low-sodium and Low-cholesterol Activity: Activity as tolerated Visit Report/Discharge Packet Instructions: Eating a Diet Low in Saturated Fat, Trans Fat, and Cholesterol, Smoking Cessation Drugs: Nicotine Replacement Products, DI for Diverticulitis, How to Quit Smoking, How to Use Antibiotics Wisely Visit Report Forms: Patient Portal/API, Stroke Signs & Symptoms Discharge Data Primary Care Provider: Lupillo Odom Discharges patient from system. Discharge Date/Time: 09/09/19 11:52 Quality VTE Deep Vein Thrombosis/Pulmonary Embolism Present on Admission: No
--- NOTE | 2019-09-09 09:52 | PC.NURSE ---
Addendum entered by Latonya Perez R.N. 09/09/19 11:59: pt's daughter present to drive pt home. Dr. Cabral in to discharge pt around 1120. pt wanting to go home ELIZA. Discharge summary packet reviewed with pt done by Vikash RN Coordinator. Pt left unit unwitnessed by this RN. Addendum entered by Latonya Perez R.N. 09/09/19 10:46: At 1045, pt given back his belongings retrieved from the unit safe. Pt given back his wallet with all listed belongings, set of keys and an unopened pack of cigarettes. Original Note: Day Shift- Pt A&OX4, indep in room with steady gait, did feel dizzy upon first rising from lying to sit to stand. Encouraged slow rise movements. pt reports tenderness to LLQ abd, denies pain, discomfort. Does state having some bloating feeling, slightly more after eating, non distressing. Denies nausea. Ate 50% of breakfast, eggs and oatmeal, tolerated well. States is wanting to go home today. Spoke with pt briefly about smoking cessation, pt did not want nicotine patch at this time, states is stopping smoking as of this admission. Information added to discharge paperwork. No other voiced concerns. Call light within reach.
[2019-09-09 11:15] VITALS: BP 146/79; PULSE 60; RESP 16; TEMP 36.7; O2SAT 96
--- NOTE | 2019-09-09 12:05 | PC.NURSE ---
Discussed discharge with Pt and daughter, Paperwork and prescriptions discussed with Pt. Pt escorted to car via w/c with DE [employer]CHOL[employer]ER. Pt discharged to care of daughter.
== END 2019-09-09 11:52 | disposition home or self-care (01) | DRG 392 ==
LOC: ED 19:32 → AC 20:30
PROVIDERS: Emergency Medicine; Internal Medicine; Admitting Provider Nurse Practitioner Adult Health; Emergency Provider Emergency Medicine; PCP Internal Medicine; Visit Provider Nurse Practitioner Adult Health
DX: K57.32 Diverticulitis of large intestine without perforation or abscess without bleeding (principal); M06.9 Rheumatoid arthritis, unspecified; F17.210 Nicotine dependence, cigarettes, uncomplicated; R03.0 Elevated blood-pressure reading, without diagnosis of hypertension; Z79.899 Other long term (current) drug therapy; Z23 Encounter for immunization
CPT/HCPCS: 36415; 72197; 74177; 80048; 80053; 80076; 81001; 81003; 81015; 83605; 83690; 83735; 84145; 85025; 85610; 85730; 87040; 87502; 87633; 90471; 90656; 94762; 96361; 96365; 96367; 96375; 99231; 99232; 99284; 99285; 99406; J1170; J1644; J1956; J2405; J3480; Q2038; Q9967

== ENCOUNTER → 2020-06-19 11:15 | Outpatient (CLI) | payer MEDICARE, OTHER, SELFPAY ==
[2020-05-26 09:27] VITALS: BMI 27.7
[2020-06-21 11:05] LABS: COVID19 Sendout Not Detected (Not Detect)
== END ==
PROVIDERS: PCP Internal Medicine; Visit Provider Nurse Practitioner
DX: Z11.59 Encounter for screening for other viral diseases (principal)
CPT/HCPCS: 87635

== ENCOUNTER 2020-06-22 08:09 | Day surgery (SDC) | payer MEDICARE, OTHER, SELFPAY ==
[2020-05-26 09:27] VITALS: BMI 27.7
[2020-06-18 08:12] VITALS: BMI 27.2
[2020-06-22] VITALS (7 sets, daily range): BP systolic 140–164; BP diastolic 76–88; PULSE 44–55; RESP 10–20; TEMP 36.7–36.9; O2SAT 95–98; BMI 27.2
[2020-06-22] MEDS: LACTATED RINGERS 1,000 ML 100 ML IV (08:42)
--- NOTE | 2020-06-22 09:15 | PM.PREOP ---
Pre-operative Note COVID-19 COVID-19 status: Negative Interval Note History & Physical reviewed/Exam performed by Physician: Yes Changes to H&P: No
[2020-06-22] MEDS: CEFAZOLIN 2 GM/100 ML FROZ.PIGGY IV (09:25)
[2020-06-22] MEDS: BUPIVACAINE 0.25% (PF) VIAL 30 ML INJ (09:38)
--- NOTE | 2020-06-22 09:39 | SUR.OPER ---
Supine on padded OR bed, head on pillow, arms secured on padded arm boards at <90 degrees abduction, legs uncrossed, safety belt at thigh, tape over blanket over lower legs.
[2020-06-22] MEDS: ONDANSETRON 4 MG/2 ML INJ IV (10:23)
[2020-06-22] MEDS: HYDROMORPHONE 2 MG INJ IV (10:24)
[2020-06-22] MEDS: OXYCODONE/ACETAMINOPHEN 5/325 TABLET 1 TAB PO (10:44)
--- NOTE | 2020-06-23 10:23 | PM.OP.1 ---
Operative Date/Time/Diagnoses Date of procedure: 06/22/20 Pre-op diagnosis: Umbilical hernia Post-op diagnosis: same Procedure & Clinicians Procedure: Open umbilical hernia repair with mesh Same procedure as scheduled: Yes Indications: Reducible umbilical hernia Surgeon: Tonny Mueller Anesthesia Type: General Operative Notes Findings: Viable omentum within the umbilical sac Estimated Blood Loss (mL): 20 Procedure in detail: Patient was brought to the operating room placed supine on the table. Bilateral lower extremity compression devices were applied. General anesthesia was induced and they were intubated with an endotracheal tube. They received 2 g of Ancef prior to skin incision. They were prepped and draped in sterile fashion. A time-out was performed. A curvilinear incision was made inferior to the umbilicus. The subcutaneous tissues were divided. The umbilical hernia was identified and the hernia sac was dissected off the umbilical skin and circumferentially off of the fascia defect. The hernia sac was sharply opened and contained incarcerated omentum. Using blunt dissection I carefully carefully freed the hernia sac from beneath the fascia defect in order to accomodate the mesh. The fascia defect was 2 cm in maximal diameter. A Bard Ventralex ST hernia patch 6.3 cm was inserted beneath the fascia defect and above the peritoneum in a sublay position. The fascia was secured to the mesh and closed using interrupted Ethibond suture. The umbilical skin was tacked to the subcutaneous tissues and then the remainder of the subcutaneous tissues were reapproximated using 3 0 Vicry,l skin closed with 4 0 Monocryl followed by the application of Dermabond and Steri-Strips. Sponge instrument count at the end of the operation was correct. Patient tolerated procedure well was extubated and transferred to postoperative care unit in stable condition. Complications: none Post-operative Condition: stable Disposition: same day surgery
== END 2020-06-22 11:15 | disposition home or self-care (01) ==
PROVIDERS: PCP Family Medicine; Referring Provider Family Medicine; Visit Provider Surgery
PROC: (CPT 49585; principal; 2020-06-22 09:15)
DX: K42.9 Umbilical hernia without obstruction or gangrene (principal); F17.210 Nicotine dependence, cigarettes, uncomplicated
CPT/HCPCS: 49585; C1781; J0690; J1100; J1170; J1885; J2250; J2405; J2704; J3010

== ENCOUNTER → 2022-03-03 09:39 | Outpatient (CLI) | payer MEDICARE, OTHER, SELFPAY ==
[2020-05-26 09:27] VITALS: BMI 27.7
--- NOTE | 2022-03-03 | DI.NM.S_ITS ---
PROCEDURE: NM BONE SCAN WHOLE BODY RADIOPHARMACEUTICAL: 20.2 mCi Tc-99m MDP IV. INDICATIONS: Pain in left hip TECHNIQUE: Delayed whole-body scintigrams were obtained approximately 3-4 hours after intravenous injection of radiotracer. Anterior and posterior views were acquired from vertex to feet. Additional left and right oblique views of the pelvis and proximal femurs were obtained. COMPARISON: [facility], [place], XR PELVIS WITH LATERAL HIP LEFT, 01/30/2022, 16:47. FINDINGS: There are postsurgical changes related to bilateral total hip arthroplasties. Low-grade increased uptake around the hip prosthesis are most likely secondary to postsurgical change. No definitive scintigraphic findings to suggest prosthesis loosening or infection. No lesions are identified in skull, sternum, clavicles, scapulae, ribs, bony pelvis, and visualized shafts of the long bones. There is low level increased uptake in cervical, thoracic and lumbar spine with distribution indistinguishable from degenerative disc and facet disease; early metastasis to spine could be obscured by degenerative changes. There are foci of increased periarticular activity involving shoulders, sternoclavicular joints, elbows, right wrist, SI joints, knees, ankles and feet, compatible with degenerative/arthritic changes. IMPRESSION: 1. Bilateral total hip arthroplasties. No definitive scintigraphic findings to suggest prosthesis loosening or infection. 2. Degenerative changes in spine and multiple peripheral joints. Dictated by: Nadia Murdock M.D. on 03/03/2022 at 16:43 Approved by: Nadia Murdock M.D. on 03/03/2022 at 16:46
== END ==
PROVIDERS: PCP Family Medicine; Referring Provider Orthopaedic Surgery; Visit Provider Orthopaedic Surgery
DX: M25.552 Pain in left hip (principal); Z96.643 Presence of artificial hip joint, bilateral
CPT/HCPCS: 78306; A9503

== ENCOUNTER → 2022-03-29 11:54 | Outpatient (CLI) | payer MEDICARE, OTHER, SELFPAY ==
[2020-05-26 09:27] VITALS: BMI 27.7
--- NOTE | 2022-03-29 | DI.MRI.S_ITS ---
PROCEDURE: MR LUMBAR SPINE WO CON INDICATIONS: Spinal stenosis, lumbar region TECHNIQUE: Noncontrast sagittal T1 spin echo and T2 fast echo, sagittal STIR, and T2 fast spin echo through the lumbar spine. In cases with scoliosis, additional coronal T2 fast spin echo may be performed. COMPARISON: [facility], CT, CT ABDOMEN PELVIS W CON, 09/06/2019, 18:10. [facility], [place], NM BONE SCAN WHOLE BODY, 03/03/2022, 13:55. FINDINGS: Image quality: Excellent. Alignment and Curvature: Mild levoconvex scoliotic curvature is noted. Minimal retrolisthesis is seen at L2-L3 and L3-L4. Bone Marrow: Marrow is of normal overall signal. No acute vertebral body compression fractures. Spinal Cord: Conus medullaris terminates at the L1 level. Visualized cord demonstrates normal signal and size. Paraspinous Soft Tissues: No paravertebral masses. T12-L1: [id number] loss of disc height and disc signal can be seen. No neural foraminal narrowing or central canal narrowing can be seen. L1-L2: Normal appearance. L2-L3: Mild loss of disc height is seen. Loss of disc signal is seen. Mild disc bulge is seen, which is eccentric to the right. Mild facet joint hypertrophy is seen. There is at least moderate right-sided and [id number] left-sided neural foraminal narrowing. Mild central canal narrowing is seen. L3-L4: There is at least moderate loss of disc height and disc signal seen. There is at least moderate disc bulge seen. There is a superimposed central disc protrusion. Mild to moderate facet hypertrophy is seen. There is at least moderate right-sided and moderate to severe left-sided neural foraminal narrowing. There is a degree of compression seen upon the exiting nerve roots. Moderate central canal narrowing is seen. L4-L5: Mild loss of disc height is seen. Loss of disc signal is seen. Moderate generalized disc bulge is seen. There is a superimposed central disc protrusion. There is moderate right-sided and at least moderate left-sided neural foraminal narrowing. There is at least moderate right-sided and moderate to severe left-sided neural foraminal narrowing. There is a degree of compression seen upon the exiting nerve roots. Mild central canal narrowing is seen. L5-S1: The disc height and disk signal are well-preserved. Mild generalized disc bulge is seen. Moderate to prominent facet hypertrophy is seen. There is moderate left-sided and mild right-sided neural foraminal narrowing. No central canal narrowing is seen. IMPRESSION: Multiple levels of lumbar spine degenerative change are seen, which are worst at L3-L4 and at L4-L5. Mild levoconvex scoliotic curvature is noted. Dictated by: Vnicent Logan M.D. on 03/29/2022 at 17:27 Approved by: Vincent Logan M.D. on 03/29/2022 at 17:31
== END ==
PROVIDERS: PCP Family Medicine; Referring Provider Orthopaedic Surgery; Visit Provider Orthopaedic Surgery
DX: M48.061 Spinal stenosis, lumbar region without neurogenic claudication (principal); M47.816 Spondylosis without myelopathy or radiculopathy, lumbar region; M41.86 Other forms of scoliosis, lumbar region
CPT/HCPCS: 72148

== ENCOUNTER → 2022-06-27 10:34 | Outpatient (CLI) | payer MEDICARE, OTHER, SELFPAY ==
[2020-05-26 09:27] VITALS: BMI 27.7
--- NOTE | 2022-06-27 | DI.CT.S_ITS ---
PROCEDURE: CT LUMBAR SPINE WO CON INDICATIONS: Spinal stenosis, lumbar region with neurogenic cla TECHNIQUE: Noncontrast 0.8 mm thick sections acquired from the T12 level to the sacrum. Sagittal and coronal reformats were constructed. For radiation dose reduction, the following was used: automated exposure control. COMPARISON: [facility], , MR LUMBAR SPINE WO CON, 03/29/2022, 12:08. [facility], [place], [place] BONE SCAN WHOLE BODY, 03/03/2022, 13:55. FINDINGS: Image quality: Excellent. Bones: No acute vertebral body compression fractures. No suspicious lytic or blastic bony lesions. No pars defects. Mild levoconvex scoliotic curvature is noted. Mild retrolisthesis is seen at L2-L3 and L3-L4. T12-L1: Mild loss of disc height is seen. There is calcification seen within the disc level itself, as on series 7, image 29. No neural foraminal narrowing or central canal narrowing can be seen. L1-L2: Normal. L2-L3: Mild loss of disc height is seen. Mild to moderate disc bulge is seen, which is eccentric to right. There is moderate right-sided and no left-sided neural narrowing Mild central canal narrowing is seen. Stable from the prior study. L3-L4: At least moderate loss of disc height is seen. Moderate generalized disc bulge is seen. Posteriorly projected endplate osteophytes are seen. At least moderate bilateral neural foraminal narrowing can be seen. Mild to moderate central canal narrowing is seen. When comparison is made with the prior images, these findings are similar. L4-L5: There is mild loss of disc height. Moderate generalized disc bulge is seen. Moderate facet joint hypertrophy is seen. There is at least moderate left-sided and mild right-sided neural narrowing. Mild central canal narrowing is seen. No significant change from the prior. L5-S1: The disc height is well preserved. There is moderate left-sided and no significant right-sided neural foraminal narrowing. No significant central canal narrowing is seen. When comparison is made with the prior images, these findings are similar. Bilateral sacroiliac joint fusion is seen, left worse than right Bilateral hip arthroplasty hardware can be seen on the core cutter image. Soft tissues: No retroperitoneal masses or hematomas. Visualized aorta is normal in caliber. Atherosclerotic calcification is noted. IMPRESSION: Multiple levels of lumbar spine degenerative change are seen, which are similar to the recent prior MRI examination. Bilateral sacroiliac joint fusion is seen. Dictated by: Vincent Logan M.D. on 06/27/2022 at 14:38 Approved by: Vincent Logan M.D. on 06/27/2022 at 14:44
== END ==
PROVIDERS: PCP Family Medicine; Referring Provider Orthopaedic Surgery Orthopaedic Surgery of the Spine; Visit Provider Orthopaedic Surgery Orthopaedic Surgery of the Spine
DX: M48.062 Spinal stenosis, lumbar region with neurogenic claudication (principal); M47.816 Spondylosis without myelopathy or radiculopathy, lumbar region; M43.28 Fusion of spine, sacral and sacrococcygeal region; Z96.643 Presence of artificial hip joint, bilateral
CPT/HCPCS: 72131

== ENCOUNTER 2022-07-14 16:06 | Emergency (ER) | payer MEDICARE, OTHER, SELFPAY ==
[2020-05-26 09:27] VITALS: BMI 27.7
[2022-07-14 16:20] VITALS: BP 163/83; PULSE 74; RESP 19; TEMP 36.7; O2SAT 98; BMI 28.2
--- NOTE | 2022-07-14 19:21 | ED_ITS ---
HPI - Back Pain/Injury <Clary Calderón, [facility] - Last Filed: 07/14/22 19:43> General Chief Complaint: Back Pain/Injury Stated Complaint: Bad back Time Seen by Provider: 07/14/22 19:07 Source: patient History of Present Illness HPI Narrative: This is a 62-year-old gentleman who presents to the emergency department complaining of worsening of his lumbar back pain which he has had recent imaging of and states that he is going to have surgery with Dr. Frances for his L3 through 5 degenerative spine disease. Patient had an MRI on 03/29/2022 over lumbar spine which showed multiple levels of lumbar spine degenerative changes, worse at L3-4 and L4-5 with mild scoliosis. He presented to the emergency department again and had a lumbar spine CT completed on 06/27/2022 which showed bilateral sacral iliac joint fusion with multiple levels of lumbar spine degenerative changes and similar to the recent MRI. Patient is atraumatic, denies any worsening of this, states that his pain has been worsening over the last 9 months and he is in constant flare. He states that he had steroid injections 1-2 weeks ago which did not do anything for him. He sees primary care at the [facility], states that he does not take any pain medication because nobody has prescribed him any. Patient states that he takes ibuprofen sometimes, endorses left-sided sciatica, dorsiflexion of the left foot illicits worsening pain as well as any movements or leg lift. He denies any incontinence, numbness or tingling, or new weakness. Related Data Home Medications Medication Instructions Recorded Confirmed infliximab 100 mg intravenous See Rx Instructions .Route 12/28/12 07/07/20 solution (Remicade) .COMPLEX ##0 blood pressure med (unknown per pt) PO 06/10/20 07/07/20 lisinopril 5 mg tablet 5 mg PO DAILY 06/22/20 07/07/20 sulfasalazine 500 mg tablet 500 mg PO BID 06/22/20 07/07/20 Previous Rx's Medication Instructions Recorded acetaminophen 325 mg capsule 650 mg PO QID PRN pain #60 caps 06/22/20 (Tylenol) docusate sodium 100 mg capsule 100 mg PO BID #30 caps 06/22/20 (Colace) oxycodone 5 mg tablet 5 mg PO Q6H PRN pain #30 tabs 06/22/20 hydrocodone 5 mg-acetaminophen 325 1 tab PO TID PRN pain #20 tabs 07/14/22 mg tablet ibuprofen 800 mg tablet 800 mg PO Q8H PRN pain #30 tabs 07/14/22 lidocaine 5 % topical patch 1 patch topical DAILY PRN pain #15 07/14/22 (Lidoderm) ea methocarbamol 750 mg tablet 750 mg PO Q8H PRN muscle spasm #30 07/14/22 tabs methylprednisolone 4 mg tablets in See Rx Instructions PO .COMPLEX 07/14/22 a dose pack (Medrol (Aubrey)) #21 ea Allergies Allergy/AdvReac Type Severity Reaction Status Date / Time No Known Drug Allergies Allergy Verified 07/14/22 16:20 Review of Systems <CONCETTA Araujo - Last Filed: 07/14/22 19:43> Review of Systems Narrative: Review of systems is negative for acute abnormalities unless otherwise noted in HPI Patient History <CONCETTA Araujo - Last Filed: 07/14/22 19:43> Medical History Diverticulitis Osteoarthritis Rheumatoid arthritis Surgical History History of appendectomy History of bilateral total hip arthroplasty History of inguinal hernia repair, bilateral Social History marital status: unknown household members: none occupational status: previously employed Smoking Status: Current every day smoker alcohol intake: current substance use type: does not use Smoking Status: Current every day smoker alcohol intake frequency: holidays/special occasions only Substance Use Type: does not use Exam <CONCETTA Araujo - Last Filed: 07/14/22 19:43> Narrative Exam Narrative: Reviewed vitals signs and nursing notes. General: cooperative, comfortable, sitting upright in chair, appears to be in mild distress, well groomed HEENT: symmetrical facial expressions, moist mucous membranes, neck is supple with full range of motion MSK: moves all extremities, neurovascularly intact, no weakness, normal tone, dorsiflexion against resistance elicits worsening low back pain with his left foot, plantar extension does changes pain, no tenderness over his lumbar spine, paraspinal musculature adjacent to his lumbar spine his tense and tender to palpation, patient is ambulatory without weakness, without sensation deficit, strength to bilateral lower extremities is intact, patient is continent Skin: brisk capillary refill, without pallor or erythema Neuro: normal speech and cognition, A&O x3, ambulatory, clear speech Psych: mental status is grossly normal, congruent mood, normal affect, pleasant and cooperative Initial Vital Signs Initial Vital Signs: Vital Signs Temperature 98.0 F 07/14/22 16:20 Pulse Rate 74 07/14/22 16:20 Respiratory Rate 19 07/14/22 16:20 Blood Pressure 163/83 H 07/14/22 16:20 Pulse Oximetry 98 07/14/22 16:20 Oxygen Delivery Method 07/14/22 16:20 <Harris Lang DO - Last Filed: 07/14/22 19:47> Initial Vital Signs Initial Vital Signs: Vital Signs Temperature 98.0 F 07/14/22 16:20 Pulse Rate 74 07/14/22 16:20 Respiratory Rate 19 07/14/22 16:20 Blood Pressure 163/83 H 07/14/22 16:20 Pulse Oximetry 98 07/14/22 16:20 Oxygen Delivery Method 07/14/22 16:20 Course <CONCETTA Araujo - Last Filed: 07/14/22 19:43> Orders Ordered: Discontinued Medications Hydrocodone Bitart/Acetaminophen (Hydrocodone/Acet 5/325 Prepack) 1 bottle MISC SEEINSTR ONE Stop: 07/14/22 19:22 Last Admin: 07/14/22 19:32 Dose: 1 bottle Documented By: MLM Cyclobenzaprine HCl (Cyclobenzaprine 10 Mg Prepack) 1 bottle MISC SEEINSTR ONE Stop: 07/14/22 19:22 Last Admin: 07/14/22 19:32 Dose: 1 bottle Documented By: MLM Ketorolac Tromethamine (Ketorolac 30 Mg/Ml Vial) 30 mg IM NOW ONE Stop: 07/14/22 19:18 Last Admin: 07/14/22 19:34 Dose: 30 mg Documented By: MLM Lidocaine (Lidocaine Patch 1 Each Adh..Patch) 1 each TOP NOW ONE Stop: 07/14/22 19:18 Last Admin: 07/14/22 19:32 Dose: 1 each Documented By: SHAKILA Methocarbamol (Methocarbamol 500 Mg Tablet) 750 mg PO NOW ONE Stop: 07/14/22 19:18 Last Admin: 07/14/22 19:33 Dose: 750 mg Documented By: SHAKILA Oxycodone/Acetaminophen (Oxycodone/Acetaminophen 5/325 Tablet) 1 tab PO NOW ONE Stop: 07/14/22 19:18 Last Admin: 07/14/22 19:33 Dose: 1 tab Documented By: SHAKILA Prednisone (Prednisone 20 Mg Tablet) 60 mg PO NOW ONE Stop: 07/14/22 19:18 Last Admin: 07/14/22 19:34 Dose: 60 mg Documented By: SHAKILA Vital Signs Vital signs: Vital Signs - 8 hr 07/14/22 16:20 Temperature 98.0 F Pulse Rate 74 Respiratory Rate 19 Blood Pressure 163/83 H Pulse Oximetry 98 Oxygen Delivery Method Room Air <Harris Lang DO - Last Filed: 07/14/22 19:47> Orders Ordered: Discontinued Medications Hydrocodone Bitart/Acetaminophen (Hydrocodone/Acet 5/325 Prepack) 1 bottle MISC SEEINSTR ONE Stop: 07/14/22 19:22 Last Admin: 07/14/22 19:32 Dose: 1 bottle Documented By: SHAKILA Cyclobenzaprine HCl (Cyclobenzaprine 10 Mg Prepack) 1 bottle MISC SEEINSTR ONE Stop: 07/14/22 19:22 Last Admin: 07/14/22 19:32 Dose: 1 bottle Documented By: SHAKILA Ketorolac Tromethamine (Ketorolac 30 Mg/Ml Vial) 30 mg IM NOW ONE Stop: 07/14/22 19:18 Last Admin: 07/14/22 19:34 Dose: 30 mg Documented By: SHAKILA Lidocaine (Lidocaine Patch 1 Each Adh..Patch) 1 each TOP NOW ONE Stop: 07/14/22 19:18 Last Admin: 07/14/22 19:32 Dose: 1 each Documented By: SHAKILA Methocarbamol (Methocarbamol 500 Mg Tablet) 750 mg PO NOW ONE Stop: 07/14/22 19:18 Last Admin: 07/14/22 19:33 Dose: 750 mg Documented By: SHAKILA Oxycodone/Acetaminophen (Oxycodone/Acetaminophen 5/325 Tablet) 1 tab PO NOW ONE Stop: 07/14/22 19:18 Last Admin: 07/14/22 19:33 Dose: 1 tab Documented By: SHAKILA Prednisone (Prednisone 20 Mg Tablet) 60 mg PO NOW ONE Stop: 07/14/22 19:18 Last Admin: 07/14/22 19:34 Dose: 60 mg Documented By: SHAKILA Vital Signs Vital signs: Vital Signs - 8 hr 07/14/22 16:20 Temperature 98.0 F Pulse Rate 74 Respiratory Rate 19 Blood Pressure 163/83 H Pulse Oximetry 98 Oxygen Delivery Method Room Air MDM - Back Pain/Injury <Clary Calderón, [facility] - Last Filed: 07/14/22 19:43> Imaging Data Lumbar CT 06/27: Radiologist's Impression: PROCEDURE:? CT LUMBAR SPINE WO CON ? INDICATIONS:? Spinal stenosis, lumbar region with neurogenic cla ? TECHNIQUE:? Noncontrast 0.8 mm thick sections acquired from the T12 level to the sacrum.? Sagittal and coronal reformats were constructed.? For radiation dose reduction, the following was used:? automated exposure control.? ? COMPARISON:? [facility], MR, MR LUMBAR SPINE WO CON, 03/29/2022, 12:08.? [facility], NM, NM BONE SCAN WHOLE BODY, 03/03/2022, 13:55. ? FINDINGS:? Image quality:? Excellent.? ? Bones:? No acute vertebral body compression fractures.? No suspicious lytic or blastic bony lesions.? No pars defects.? ? Mild levoconvex scoliotic curvature is noted.? Mild retrolisthesis is seen at L2-L3 and L3-L4.? ? T12-L1:? Mild loss of disc height is seen.? There is calcification seen within t he disc level itself, as on series 7, image 29. No neural foraminal narrowing or central canal narrowing can be seen.? ? L1-L2:? Normal. ? L2-L3:? Mild loss of disc height is seen.? Mild to moderate disc bulge is seen, which is eccentric to right.? There is moderate right-sided and no left-sided neural narrowing Mild central canal narrowing is seen. ? Stable from the prior study.? ? L3-L4:? At least moderate loss of disc height is seen. Moderate generalized disc bulge is seen. Posteriorly projected endplate osteophytes are seen.? At least moderate bilateral neural foraminal narrowing can be seen.? Mild to moderate central canal narrowing is seen. When comparison is made with the prior images, these findings are similar.? ? L4-L5:? There is mild loss of disc height. Moderate generalized disc bulge is seen. Moderate facet joint hypertrophy is seen.? There is at least moderate left-sided and mild right-sided neural narrowing.? Mild central canal narrowing is seen. No significant change from the prior.? ? L5-S1:? The disc height is well preserved.? There is moderate left-sided and no significant right-sided neural foraminal narrowing.? No significant central canal narrowing is seen. When comparison is made with the prior images, these findings are similar.? ? Bilateral sacroiliac joint fusion is seen, left worse than right ? Bilateral hip arthroplasty hardware can be seen on the chief wellness officer image. ? Soft tissues:? No retroperitoneal masses or hematomas.? Visualized aorta is normal in caliber.? Atherosclerotic calcification is noted.? IMPRESSION:? Multiple levels of lumbar spine degenerative change are seen, which are similar to the recent prior MRI examination. ? Bilateral sacroiliac joint fusion is seen. ? ? ? Dictated by: Vincent Logan M.D. on 06/27/2022 at 14:38 ? ? Approved by: Vincent Logan M.D. on 06/27/2022 at 14:44 ? [facility] Narrative Medical decision making narrative: Patient presents with months of worsening lumbar back pain left-sided sciatica symptoms, without recent trauma, and is afebrile. Patient has a lumbar spine CT from 06/27/2022 which did not have any acute changes when compared with his lumbar spine MRI on 03/29/2022. Patient has a history of rheumatoid arthritis, and is on Remicade for this. Patient has seen Dr. Frances from [facility] for plan surgery of his lumbar spine, patient states he is having a spinal fusion of L3 through 5. He presents today for exacerbation of pain and states that he does not have any pain medications to treat his symptoms at home. He states that he is taken ibuprofen occasionally but otherwise no medications. Given history and exam, suspect likely musculoskeletal etiology, they are nontoxic appearing with no overt risk factors for epidural hematoma or abscess. No overt evidence of critical cord compression and has a nonfocal near exam. Neurovascularly intact distally, no evidence of infection, peritoneal signs, hypertensive crisis, or abdominal pain with low suspicion for AAA. No weakness, incontinence, neurovascular or sensation changes, no concerning findings for caudal equina syndrome, lumbar fracture, without paresthesia, neuropathic pain, meningeal signs and fever. This could be a herniated disk, paraspinal or other muscle strain, ligamental injury, arthritic, nephrolithiasis/pyelonephritis, epidural abscess, chronic pain, and other diagnosis? considered less likely. Left leg lift and dorsiflexion of the left foot worsens his lumbar pain, he is without weakness, is ambulatory, without any new focal deficits. Encouraged him to follow-up with his specialists as needed, he had steroid injections approximately 1 week ago in [place], states it did not help him at all. I encouraged him to follow-up with this provider again to see if they have any other options to treat his chronic pain. Patient is appropriate and amenable to discharge home. Vital signs are stable on repeat examination is unremarkable. Patient has been informed of results. Patient has been given strict return to ER precautions for any new or worsening symptoms. Patient understands to follow up closely with outpatient providers as instructed. Patient understands plan and agrees to discharge home. All questions and concerns answered at this time. Discharge Plan Departure Patient Disposition: Home Clinical Impression: Acute lumbar radiculopathy Degenerative arthritis of lumbar spine Qualifiers: Spinal osteoarthritis complication: with radiculopathy Qualified Code(s): M47.26 - Other spondylosis with radiculopathy, lumbar region Instructions: Osteoarthritis, Degenerative Disc Disease, DI for Low Back Pain, DI for Back Pain With Sciatica Activity Restrictions/Additional Instructions: *You have been diagnosed with an exacerbation of your low back pain. I reviewed your images, it appears that you have degenerative disc and lumbar spine disease which is a lot of words for arthritis and changes as we age. Please follow-up with Dr. Salmeron regarding when your surgery will be. Please stay hydrated, take her medicines with food and water, avoid over exerting yourself. Please use muscle relaxers as needed for spasms, take the steroid as it is prescribed and hopefully your pain gets better over the next few days. Please use a topical agent lidocaine patch, or CBD oil whatever works for you. Take 800 mg of ibuprofen with 975 mg of Tylenol every 8 hours with food and water, you can take a breakthrough pain pill as needed, please follow-up with your regular doctor for chronic pain medications. I hope you start feeling better soon, try to rest, use heat or ice whichever works for you. If you have severe pain please follow-up with where you had your steroid injections, they handle chronic pain as well and could be a prescriber for you if needed. I hope you feel better soon, return for any new or worsening conditions or if you are unable to walk or have any new weakness. *What to do: *Please continue to take your regular medications as directed. [x ] New medication prescriptions sent to your pharmacy: [[facility]] [ ] New medication written as a paper prescription [ ] No new medications given *Please follow up with your primary care provider in 2-3 days, call for an appointment. Let them know you were seen in the Emergency Department and that we asked that you be seen for follow-up. We will electronically transmit a record of today's note if your PCP is in our system *If you do not have a primary care provider please contact [phone] to establish care with one of [facility] primary care providers. *Return to Emergency Department if you should have any new, worsening, or concerning symptoms, such as [fever greater than 101F, chills, worsening pain, persistent vomiting or other bothersome symptoms]. Prescriptions: New lidocaine [Lidoderm] 5 % adhesive patch,medicated 1 patch topical DAILY PRN (Reason: pain) Qty: 15 0RF Rx Instructions: leave on most painful area for up to 12 hrs methocarbamol 750 mg tablet 750 mg PO Q8H PRN (Reason: muscle spasm) Qty: 30 0RF Rx Instructions: will make you drowsy methylprednisolone [Medrol (Aubrey)] 4 mg tablets,dose pack See Rx Instructions .ROUTE .COMPLEX Qty: 21 0RF Rx Instructions: orally per package directions hydrocodone-acetaminophen 5-325 mg tablet 1 tab PO TID PRN (Reason: pain) Qty: 20 0RF ibuprofen 800 mg tablet 800 mg PO Q8H PRN (Reason: pain) Qty: 30 0RF Rx Instructions: take with food and water No Action Remicade 100 MG recon soln See Rx Instructions .ROUTE .COMPLEX Qty: 0 Rx Instructions: 100 mg intravenously q 5 weeks blood pressure med (unknown per pt) PO sulfasalazine 500 mg Tablet 500 mg PO BID lisinopril 5 mg Tablet 5 mg PO DAILY docusate sodium [Colace] 100 mg capsule 100 mg PO BID Qty: 30 0RF oxycodone 5 mg tablet 5 mg PO Q6H PRN (Reason: pain) Qty: 30 0RF acetaminophen [Tylenol] 325 mg capsule 650 mg PO QID PRN (Reason: pain) Qty: 60 0RF Referrals: Jasbir George MD [Primary Care Provider] - Mona Frances MD [Physician] - <Harris Lang DO - Last Filed: 07/14/22 19:47> [facility] Dr Lang Co-Sign Statement: I was available for consultation during this patient's emergency department visit. This chart is signed by myself for administrative purposes only. I did not have direct contact with this patient during this visit. They were seen independently by the APC.
[2022-07-14] MEDS: CYCLOBENZAPRINE 10 MG PREPACK 1 BOTTLE MISC (19:32)
[2022-07-14] MEDS: LIDOCAINE PATCH 1 EACH ADH..PATCH TOP (19:32)
[2022-07-14] MEDS: HYDROCODONE/ACET 5/325 PREPACK 1 BOTTLE MISC (19:32)
[2022-07-14] MEDS: methocarbamoL 500 MG TABLET 750 MG PO (19:33)
[2022-07-14] MEDS: OXYCODONE/ACETAMINOPHEN 5/325 TABLET 1 TAB PO (19:33)
[2022-07-14] MEDS: KETOROLAC 30 MG/ML VIAL IM (19:34)
[2022-07-14] MEDS: predniSONE 20 MG TABLET 60 MG PO (19:34)
== END 2022-07-14 19:55 | disposition home or self-care (01) ==
PROVIDERS: Emergency Provider Nurse Practitioner Critical Care Medicine; PCP Family Medicine
DX: M47.26 Other spondylosis with radiculopathy, lumbar region (principal)
CPT/HCPCS: 96372; 99283; J1885

== ENCOUNTER → 2022-07-26 11:29 | Outpatient (CLI) | payer MEDICARE, OTHER, SELFPAY ==
[2020-05-26 09:27] VITALS: BMI 27.7
== END ==
PROVIDERS: PCP Family Medicine; Referring Provider Orthopaedic Surgery Orthopaedic Surgery of the Spine; Visit Provider Orthopaedic Surgery Orthopaedic Surgery of the Spine
DX: Z01.818 Encounter for other preprocedural examination (principal)
CPT/HCPCS: 93005; 93010

== ENCOUNTER → 2022-07-31 12:48 | Outpatient (CLI) | payer MEDICARE, OTHER, SELFPAY ==
[2020-05-26 09:27] VITALS: BMI 27.7
[2022-07-31 14:38] LABS: COVID19 -Nasal RAPID Negative (Negative)
== END ==
PROVIDERS: PCP Family Medicine; Referring Provider Orthopaedic Surgery Orthopaedic Surgery of the Spine; Visit Provider Orthopaedic Surgery Orthopaedic Surgery of the Spine
DX: Z20.822 Contact with and (suspected) exposure to COVID-19 (principal)
CPT/HCPCS: 87635; C9803

== ENCOUNTER 2022-08-03 06:21 | Inpatient (IN) | payer MEDICARE, OTHER, SELFPAY ==
[2020-05-26 09:27] VITALS: BMI 27.7
[2022-07-31 12:53] VITALS: BMI 27.4
[2022-08-03] VITALS (18 sets, daily range): BP systolic 108–171; BP diastolic 50–88; PULSE 56–66; RESP 12–20; TEMP 35.8–37.2; O2SAT 93–99; BMI 28.2; BMI 30.6
[2022-08-03] MEDS: LACTATED RINGERS 1,000 ML 42 ML IV (07:17)
--- NOTE | 2022-08-03 07:42 | PM.PREOP ---
Pre-operative Note COVID-19 COVID-19 status: Negative Result date/Date tested (Pos, Neg/Pending): 08/02/22 Criteria for continued procedure: Expected advancement of disease process, Possibility delay results in more complex future surgery or treatment, Increased loss of function, Continuing or worsening of significant or severe pain, Deterioration of the patient's condition or overall health and Delay expected to result in less-positive ultimate med/surg outcome Interval Note History & Physical reviewed/Exam performed by Physician: Yes Changes to H&P: No
[2022-08-03] MEDS: CEFAZOLIN 2 GM/100 ML PREMIX 100 ML IV ×3 (08:05→23:34)
--- NOTE | 2022-08-03 08:40 | SUR.OPER ---
Prone on spine table, head in foam head support, padded chest and pelvic supports, gel pad at knees, lower legs supported by pillows; nipples, genitalia and toes free of pressure, arms secured on foam padded arm boards at <90 degrees abduction. Tape over blanket at thigh secured to table.
[2022-08-03] MEDS: BUPIVACAINE LIPOSOME 266 MG/20 ML VIAL INJ (08:50)
[2022-08-03] MEDS: BUPIVACAINE 0.5% W/ EPI (PF) 30 ML VIAL 15 ML INJ (08:53)
--- NOTE | 2022-08-03 11:26 | DI.RAD.S_ITS ---
PROCEDURE: XR LUMBAR SPINE 2-3V INDICATIONS: L3-4, L4-5 TLIF/ROBOT TECHNIQUE: 2 intraoperative fluoroscopic views of the lumbar spine were acquired. COMPARISON: None. FINDINGS: Bones: Fluoroscopic views demonstrate posterior fixation and discectomy of the lumbar spine. IMPRESSION: Fluoroscopic views of posterior fixation and discectomy of the L-spine. Dictated by: Stephy Wilson M.D. on 08/03/2022 at 12:11 Approved by: Stephy Wilson M.D. on 08/03/2022 at 12:11
--- NOTE | 2022-08-03 11:45 | P.OP_ITS ---
Operative Date/Time/Diagnoses Date of procedure: 08/03/22 Time of procedure: 07:40 Pre-op diagnosis: 1. L3-4, L4-5 spinal stenosis 2. L3-4, L4-5 spondylosis with radiculopathy Post-op diagnosis: same Procedure & Clinicians Procedure: 1. L3-4, L4-5 Postero-lateral and posterior interbody fusion 2. L3-4, L4-5 interbody cage placement. 3. L3-4, L4-5 decompressive laminectomy with bilateral facetecomies 4. L3-4, L4-5 Posterior segmental instrumentation 5. [place] of bone marrow from iliac crest 6. Utilization of microsurgical technique and operating microscope 7. Utilization of robotic assisted navigation Same procedure as scheduled: Yes Indications: Patient has been having chronic back pain and worsening lumbar radiculopathy. Patient failed multiple conservative management with worsening pain weakness and numbness in his lower extremity. Patient has been having difficulty performing activity of daily living. After discussing risks benefits of treatment options, patient elected proceed with surgery. Surgeon: Mona Frances Sales Service Supervisor: Melina Hill Click Yes if Unassisted: No Anesthesia Type: General Operative Notes Closure Type: primary Specimen(s): none sent Prosthetic devices, grafts, tissues, transplants, or devices: Globus CREO MIS screws, Rise cages Applied: catheter Estimated Blood Loss (mL): 75 Blood products transfused: none Procedure in detail: Patient was seen in the preoperative area. Risks and benefits of the surgery was discussed with the patient. Informed consent was obtained from the patient and placed in the chart. Surgical site was marked. Patient was taken to the ope rative room. General anesthesia was administered. Prophylactic antibiotic was given to the patient less than 30 min before the incision was made. Patient was placed into a prone position on the Alvino table. Patient's back was then prepped and draped in the sterile fashion. Time-out was performed at this time. After patient was prepped and draped, patient's PSIS was palpated and marked bilaterally. Small 1 cm incision was made over the PSIS for placement of the reference probes. Two trocar was placed into the PSIS 1 on each side. The reference probe was attached to the trocar of the reference apparatus. At this time the C-arm imaging was used to confirm AP and lateral of L3, L4-L5 vertebrae and merged the C-arm imaging using the Bloggerce robotic navigation system with the CT of the lumbar spine. After successful merging was completed and confirmed, skin marker was used to eulalio out the skin incision using the Bloggerce robotic arm. Bilateral incision was made at this time. Pre templated trajectory was used and guided using the Bloggerce robotic navigation system for bilateral L3 L4, L5 pedicle screw placement. This was done by using the robotic arm to guide the high-speed bur to make a cortical entry point. Next a drill was placed also using the robotic arm and guided using the navigation system drilling partially through bilateral L3, L4, L5 pedicles. Next L3, L4, L5 pedicle screws it was pre templated and measured was placed onto the power backhaul driver and inserted into the pedicles bilaterally. After all 6 screws were placed C-arm imaging was taken of both AP and lateral to confirm the placement. Excellent placement of the screws were confirmed and a matched precisely with the pre planned screw placement using the navigation system. MARs retractor was inserted using [employer] Technologies[employer] guidence. Globus MARS retractors was placed inside the incision and docked onto the L3, L4 lamina. Using microsurgical technique and operating microscope, a L3, L4 laminectomy and L3-4, L4-5 facetectomy was performed using a [place] rongeur. Patient was found have severe lateral recess and neural foramen stenosis which was fully decompressed after the laminectomy facetectomy. More than 75% of the facets were removed during the process of decompression rendering L3-4, L4-5 level grossly unstable and required a fusion procedure at the same time. The disc space at L3-4, L4-5 was identified, and a total diskectomy was performed at L3- 4, L4-5 level. The endplates were decorticated using a rasp and shaver. The total diskectomy and decortication was performed at L3-4, L4-5 level in order to to accomplish a L3-4, L4-5 fusion. The local bone from the laminectomy and facetectomy was saved for local bone grafting. After the total diskectomy and decortication was completed, Trifecta bone graft material was combined with local bone that was harvested earlier. There were 2 Synovial cysts on the left side of both L3-4 L4-5 facets. The synovial cysts were removed during the process of the facetectomy at both levels. At this time, a separate skin is incision was made over the iliac crest. A Jamshidi needle was inserted into the iliac crest through a separate skin incision. 5 cc of bone marrow aspiration was obtained through the separate skin incision using a Jamshidi needle from the iliac crest. The bone marrow aspiration was combined with local bone and the Trifecta bone grafting material. The bone grafting material was placed into the L3-4, L4-5 interbody space along with expandable cages. One cage each was inserted into the L3-4 L4-5 interbody space along with bone graft material. The cage was expanded to its maximum height using the torque limiting screwdriver. The disc preparation as well as the cage insertion were also performed under navigation guidance. After the cage was placed, AP and lateral C-arm imaging was taken to confirm placement of the cage and excellent position was confirmed. Globus MARS retractor was inserted and docked onto the L3-4, L4-5 posterolateral gutter on the right side. Using the power drill, posterior-lateral decortication was performed at L3-4, L4-5 level until bleeding cortical bone was identified. The remaining bone grafting material was placed into the L3-4, L4-5 posterior lateral gutter he order to accomplish posterolateral fusion at the L3- 4, L4-5 level. At this time the tulips were attached to the L3, L4-L5 pedicle screw shanks. After measuring the length of the rods, they were inserted into the tulips of the pedicle screws and locked in place using locking caps and torque limiting screwdriver bilaterally. Total 6 caps and 2 titanium rods was used in order to complete the posterior instrumentation construct. After all the hardware was placed, and confirmed with AP and lateral C-arm imaging, the wound was then irrigated with sterile normal saline and packed with Ray-Brian gauze for 3 min to accomplish hemostasis. After the gauze was removed the deep fascia was closed with #1 Vicryl suture. The subcutaneous layer was closed with 2-0 Vicryl. The skin was closed with skin kym. Patient tolerated the procedure well. There were no complications. Neuro monitoring system was used to monitor patient's neurologic status throughout entire procedure. There was no disturbance of the neural monitoring signals throughout the case. Complications: none Post-operative Condition: stable Disposition: PACU Plan for aftercare: Admit to inpatient hospital
[2022-08-03] MEDS: hydrOXYzine 50 MG/ML INJ 25 MG IM (12:36)
[2022-08-03] MEDS: OXYCODONE IR 5 MG TABLET PO (12:45)
[2022-08-03] MEDS: OXYCODONE IR 5 MG TABLET 10 MG PO ×2 (13:26→17:26)
[2022-08-03] MEDS: SODIUM CHLORIDE 0.9% 1,000 ML 100 ML IV ×2 (13:27→23:37)
[2022-08-03] MEDS: ACETAMINOPHEN 325 MG TABLET 650 MG PO (13:27)
[2022-08-03] MEDS: HYDROMORPHONE 0.5 MG INJ IV ×3 (13:32→23:34)
--- NOTE | 2022-08-03 14:26 | OT.IPNOTE ---
Per nurse pt is severe pain at this time, to check on pt tomorrow for OT eval.
--- NOTE | 2022-08-03 16:25 | PT-IP ANOTE ---
checked with nurse and stated that pt is having a lot of pain and is very sleepy as well and not ready for PT and stated that maybe in 1/2 hour to check back. Checked on pt after ~ 1 hour 1/2 and pt continues to be sleepy and stated that he is not ready for PT but agreed to provide home set up and PLOF info. provided pt with post-op folder.
[2022-08-03] MEDS: hydrOXYzine pamoate 25 MG CAPSULE PO ×2 (17:26→23:34)
[2022-08-04] MEDS: OXYCODONE IR 5 MG TABLET 10 MG PO ×2 (02:13→06:59)
[2022-08-04] MEDS: hydrOXYzine pamoate 25 MG CAPSULE PO ×4 (03:24→20:21)
[2022-08-04] MEDS: HYDROMORPHONE 0.5 MG INJ IV ×2 (03:25→07:41)
--- NOTE | 2022-08-04 07:26 | PM.PNPO.1 ---
Subjective Subjective Date Patient Seen: 08/04/22 Time Patient Seen: 07:26 Interval history: The patient is complaining of severe low back pain, not well controlled with current medications. He was unable to work with physical therapy yesterday due to the pain. He denies any new numbness or tingling down his legs. No nausea or vomiting. Exam Vital Signs (past 8 hours): Oxygen Delivery Method Room Air Oxygen Flow Rate 0 Narrative Exam Narrative: Pleasant 62-year-old male, resting in bed, [id number] distress due to pain. Lumbar dressing are clean, dry, intact. There is no surrounding erythema, induration, or ingrid pus. Bilateral lower extremity: Motor functions are grossly intact, sensation is grossly intact to light touch, calves are soft and nontender palpation. FOR[facility]LY [facility] Medical History Anxiety Diverticulitis HTN (hypertension) Osteoarthritis Rheumatoid arthritis Sciatica Surgical History History of appendectomy History of bilateral total hip arthroplasty History of inguinal hernia repair, bilateral Hx of umbilical hernia repair (06/22/20) Social History marital status: unknown household members: children occupational status: previously employed Smoking Status: Current every day smoker alcohol intake: current substance use type: does not use Assessment & Plan Post-op Postoperative Procedures: Procedures Operation Date: 08/03/22 07:45 Actual Procedure Side Surgeon p L3-4, L4-5 TLIF w. posterior instrumentation-Robot Mona Frances MD Postoperative day: 1 Postoperative status: marginal pain control Postoperative status narrative: Status post L3-4, L4-5 TLIF Postoperative plan narrative: -mobilize with PT/OT. Weightbearing as tolerated with front wheel walker or cane. Limit bending, lifting, twisting x6 weeks -continue with multimodal pain management. Change Tylenol to scheduled, discontinued oxycodone. Added p.o. Dilaudid for moderate to severe pain. -discontinue urinary catheter today once mobilizing better -disposition: Home versus SNF in 1-2 days, depending on progress with physical therapy and pain control Quality VTE Deep Vein Thrombosis/Pulmonary Embolism Present on Admission: No
[2022-08-04 07:43] LABS: Hematocrit 35.4 % (41-53); Hemoglobin 11.9 g/dL (13.5-17.5)
[2022-08-04] MEDS: ACETAMINOPHEN 325 MG TABLET 650 MG PO ×3 (07:44→17:06)
[2022-08-04 08:07] VITALS: BP 136/61; PULSE 68; RESP 16; TEMP 37.3; O2SAT 94
[2022-08-04] MEDS: MAGNESIUM HYDROXIDE 30 ML UDC PO (09:23)
[2022-08-04] MEDS: DOCUSATE 100 MG CAPSULE PO ×2 (09:25→20:21)
--- NOTE | 2022-08-04 11:20 | PT.IIE ---
Current Diagnoses Other secondary scoliosis, lumbar region (08/03/22) Spinal stenosis, lumbar region with neurogenic claudication (08/03/22) Surgery Performed Operation Date: 08/03/22 07:45 Actual Procedures p L3-4, L4-5 TLIF w. posterior instrumentation-Robot - Mona Frances MD Surgical History (Last Reviewed 08/04/22 @ 07:27 by Yanira Benz PA-C) History of appendectomy History of bilateral total hip arthroplasty History of inguinal hernia repair, bilateral Hx of umbilical hernia repair (06/22/20) Medical History (Last Reviewed 08/04/22 @ 07:27 by Yanira Benz PA-C) Anxiety Diverticulitis HTN (hypertension) Osteoarthritis Rheumatoid arthritis Sciatica Physical Therapy Inpatient Evaluation/Re-Eval M1 PT/OT-IP Prior Functional Status Start: 08/03/22 16:20 Freq: NEEDED Status: Active Protocol: Document 08/04/22 11:20 AB (Rec: 08/04/22 12:57 AB [email or web address]) Medical Review Prior Functional Status Medical History Reviewed Yes Communication able to answer questions but speaks very softly Mobility and Gait pt stated that he is modified independent with bed mobility, transfers and ambulation using a SPC but occasionally without AD depending on how he feels Activities of Daily Living and IADL's pt stated that his daughter assists him with dressing needs Social History Household Members children Living Arrangements House Number of Floors (Floors) One Floor Number of Stairs To Enter/Railing? 3 steps L rail to enter Home Environment Standard Height Toilet,Walk in Shower,Built-In Shower Seat Home Equipment Straight Cane,Hand Held Shower Additional Social History Comment pt stated that his daughter will be able to assist him at home pt stated that his daughter will be a walker for him to use M2 PT-IP Current Condition Start: 08/03/22 16:20 Freq: NEEDED Status: Active Protocol: Document 08/04/22 11:20 AB (Rec: 08/04/22 12:57 AB [email or web address]) Physical Therapy Current Condition Current Condition Evaluation Date 08/04/22 Treatment Diagnosis s/p L3-4, L4-5 TLIF; difficulty in walking Onset Date 08/03/22 M3 PT-IP Subjective Start: 08/03/22 16:20 Freq: NEEDED Status: Active Protocol: Document 08/04/22 11:20 AB (Rec: 08/04/22 12:57 AB [email or web address]) Subjective Physical Therapy Visit Type Type Initial Evaluation Visit Start Time 11:20 Visit Stop Time 11:45 Total Visit Minutes 25 Number of GLOVE EXAMINER Visits 0 Physical Therapy Visit Comments Patient Comments agreeable to do PT; pt is sleepy Therapy Pain Assessment Pain When Pain Assessed At Rest Pain Present Pain Present Pain Reported Location back Intensity 6 Scale Used increases to 8/10 with mobility Pain Management Techniques Distraction,Modification of Treatment,Re-positioning, Timing of Activity with Medications M4 PT-IP Mobility and Gait Start: 08/03/22 16:20 Freq: NEEDED Status: Active Protocol: Document 08/04/22 11:20 AB (Rec: 08/04/22 12:57 AB [email or web address]) PT-Bed Mobility Assessment Rolling Type of Rolling Log Rolling Level of Assist Maximal Assistance,2 Person Assistance Supine to Sit Supine to Sit Maximum Assistance,2 Person Assistance,Bedrails Scooting Scooting to Edge of Bed Dependent PT-Transfer Assessment Sit to and From Stand Sit to and from Stand Maximum Assistance,2 Person Assistance,Use of Upper Extremities Equipment Transfer Assistive Device Gait Belt,Front Wheeled Walker Orthotic/Prosthetic Devices or Brace: No Transfers Transfer Destination Chair Transfer Technique Stand Step Pivot Transfer Ability Level of Assist Maximum Assistance,2 Person Assistance,Use of Upper Extremities Comments Mobility Comments educated pt on back precautions and log roll bed mobility but pt has difficulty following directions. pt completed supine to sit log roll max A x 2 and max cues. increase posterior lean and guarding noted. pt c/o increase back pain but at the same time has having difficulty following directions and staying awake. completed sit to stand max A x 2 and max cues. instructed pt to march in place but pt unable to follow. assisted to pivot to chair requiring max A x 2 and max cues. positioned pt on the chair. call light and table placed within reach. Gait Assessment Comments Gait Comments unable at this time PT-Balance Assessment Sitting Balance and Reactions Static Sitting Balance Ability Fair Dynamic Sitting Balance Ability Poor Standing Balance and Reactions Static Standing Balance Ability Poor Dynamic Standing Balance Ability Poor Device Used FWW M5 PT-IP Objective Assessments Start: 08/03/22 16:20 Freq: NEEDED Status: Active Protocol: Document 08/04/22 11:20 AB (Rec: 08/04/22 12:57 AB [email or web address]) Orientation Orientation/Cognition Level of Alertness Lethargic Orientation Name Safety Awareness Decreased Safety Awareness Memory Description Short Term Impaired Gross Range of Motion Lower Extremity ROM Assessment Within Functional Limits Strength Lower Extremity Strength Assessment Bilaterally Impaired Comments Strength Comments RLE: 3+/5 LLE: 4-/5 Muscle Tone Muscle Tone WNL Yes M6 PT-IP Treatment Start: 08/03/22 16:20 Freq: NEEDED Status: Active Protocol: Document 08/04/22 11:20 AB (Rec: 08/04/22 12:57 AB [email or web address]) Physical Therapy Treatment Education Education Provided Precautions,Weight Bearing Status,Post-Op Packet,Safety M7 PT-IP Assessment and Plan Start: 08/03/22 16:20 Freq: NEEDED Status: Active Protocol: Document 08/04/22 11:20 AB (Rec: 08/04/22 12:57 AB [email or web address]) PT Summary Assessment and Plan Potential Rehabilitation Potential Fair Status of Condition at Evaluation Evolving Summary Impairments Pain,ROM,Strength,Balance, Coordination,Sensation,Tone, Cognition,Bed Mobility, Transfers,Gait,Activity Tolerance Assessment Summary pt requiring max A x 2 with all mobilities and unable to ambulate at this time. pt with difficulty following directions and c/o increarse LBP. pt will require SNF rehab to improve overall strength and mobility. Goals Bed Mobility Goal Minimal Assistance Transfer Goal Minimal Assistance Gait Goal Minimal Assistance,Front Wheel Walker Gait Distance 50 Other Goals improve bed mobility, transfers using FWW and ambulation using fWW SBA ~ 150 ft up/down 3 steps L rail ascending SBA Days to Meet Goals 10 Frequency of Treatment Frequency Of Treatment Twice a Day Treatment Plan Physical Therapy Treatment Plan Bed Mobility Training,Transfer Training,Gait Training, Therapeutic Exercise,Balance Retraining,Post Op Education, Discharge Planning,Hot or Cold Pack,Neuromuscular Re-ed, Coordination Retraining,Manual Therapy Precautions Lumbar Precautions Log Roll,No Twisting,Limit Bending,Lifting Restriction of 10 lbs,Gait Belt above Incisional Area Recommendations To Nursing Amount of Assist Needed 2 Person Assist Discharge Recommendations PT Discharge Recommendations SNF Rehab Equipment Needed for Home Before FWW Discharge Transportation Needs at Discharge Wheelchair/Cabulance
[2022-08-04] MEDS: HYDROMORPHONE 2 MG TABLET PO ×2 (11:50→15:32)
--- NOTE | 2022-08-04 12:00 | OT.IP.EVAL ---
Current Diagnoses Other secondary scoliosis, lumbar region (08/03/22) Spinal stenosis, lumbar region with neurogenic claudication (08/03/22) Surgery Performed Operation Date: 08/03/22 07:45 Actual Procedures p L3-4, L4-5 TLIF w. posterior instrumentation-Robot - Mona Frances MD Past Medical History (Last Reviewed 08/04/22 @ 07:27 by Yanira Benz PA-C) Anxiety Diverticulitis HTN (hypertension) Osteoarthritis Rheumatoid arthritis Sciatica Surgical History (Last Reviewed 08/04/22 @ 07:27 by Yanira Benz PA-C) History of appendectomy History of bilateral total hip arthroplasty History of inguinal hernia repair, bilateral Hx of umbilical hernia repair (06/22/20) Occupational Therapy Inpatient Evaluation/Re-Eval M1 PT/OT-IP Prior Functional Status Start: 08/03/22 16:20 Freq: NEEDED Status: Active Protocol: Document 08/04/22 11:25 [facility] (Rec: 08/04/22 13:03 [facility] [id number]) Medical Review Prior Functional Status Medical History Reviewed Yes Communication able to answer questions but speaks very softly Mobility and Gait pt stated that he is modified independent with bed mobility, transfers and ambulation using a SPC but occasionally without AD depending on how he feels Activities of Daily Living and IADL's pt stated that his daughter assists him with dressing needs of shoes and socks Social History Household Members children Living Arrangements House Number of Floors (Floors) One Floor Number of Stairs To Enter/Railing? 3 steps L rail to enter Home Environment Standard Height Toilet,Walk in Shower,Built-In Shower Seat Home Equipment Straight Cane,Hand Held Shower Additional Social History Comment pt stated that his daughter will be able to assist him at home pt stated that his daughter will be a walker for him to use M2 OT-IP Current Condition Start: 08/04/22 12:47 Freq: Status: Active Protocol: Document 08/04/22 11:25 [facility] (Rec: 08/04/22 13:03 [facility] [id number]) Occupational Therapy Current Condition Current Condition Evaluation Date 08/04/22 Treatment Diagnosis S/p L3-4, L4-5 TLIF Post Operative Precautions Lumbar Precautions Log Roll,No Twisting,Limit Bending,Lifting Restriction of 10 lbs,Gait Belt above Incisional Area M3 OT- IP Subjective and Pain Start: 08/04/22 12:47 Freq: Status: Active Protocol: Document 08/04/22 11:25 [facility] (Rec: 08/04/22 13:03 [facility] [id number]) OT- Subjective Occupational Therapy Visit Type Type Initial Evaluation Visit Start Time 11:25 Visit Stop Time 12:00 Total Visit Minutes 35 Occupational Therapy Visit Comments Patient Comments Pt in with PT when OT came in, pt needing extensive assist for mobility needs. Patient/Caregiver Goals To get better and realizing may have to go to skilled rehab to get better. OT Pain Assessment Pain When Pain Assessed At Rest Pain Present Pain Present Pain Reported Location back Intensity 9 Scale Used Numeric (0 - 10) M4 OT- IP ADL's Start: 08/04/22 12:47 Freq: Status: Active Protocol: Document 08/04/22 11:25 [facility] (Rec: 08/04/22 13:03 [facility] [id number]) OT [id number] Comments OT Self-Feeding Comments Not at meal time. OT ADL-Grooming General Evaluation Grooming Ability Standby Assistance Comments OT Grooming Comments set-up while seated OT ADL-Oral Care General Eval Oral Care Ability Standby Assistance Comments Oral Care Comments set-up while seated OT ADL-Dressing General Eval Lower Body Dressing Ability Maximum Assistance Areas Needing Assistance Socks Comments OT Dressing Comments Dependent for LB dressing needs at this time. OT ADL-Toileting General Evaluation Toileting Ability not performed Comments OT Toileting Comments OT ADL-Bathing Comments OT Bathing Comments Sponge bathing more appropriate at this time. M5 OT- IP IADL's Start: 08/04/22 12:47 Freq: Status: Active Protocol: Document 08/04/22 11:25 [facility] (Rec: 08/04/22 13:03 [facility] [id number]) OT-Instrumental Activities of Daily Living Deficits IADL Deficits Identified Deficits Home Safety Awareness Awareness of Need for Assistance at Home Good Awareness Home Safety Comments Pt very groggy and having difficulty to process and initiate task of ADL and mobility at this time. Pt also having severe pain which may be also affecting his thinking as well. Medication Management Medication Management Comments Pt liang need assist at this time. Money Management Money Management Comments Pt liang need assist at this time. Meal Preparation Meal Preparation Comments Pt liang need assist at this time. Forestry Contractor Forestry Contractor Comments Pt liang need assist at this time. M6 OT- IP Functional Cognition Start: 08/04/22 12:47 Freq: Status: Active Protocol: Document 08/04/22 11:25 [facility] (Rec: 08/04/22 13:03 [facility] [id number]) Cognitive Factors Limiting Selfcare Function Cognitive Ability Level of Alertness Alert,Drowsy Patient Orientation Name,Month,Year,Place, Situation Attention Span Ability Capable of Focused Attention, Unable to Sustain Attention Ability to Follow Commands Able to Follow One Step Commands with Increased Time, Able to Follow One Step Commands with Repetition Cognitive Comments Cognitive Assessment Comments Pt very groggy and needing step by step cues to follow for grooming/oral care and bed mobility and transfer needs. OT- Vision and Hearing OT- Hearing Assessment OT- Hearing Assessment WFL OT- Vision Assessment Visual Acuity WFL M7 OT- IP Mobility and Balance Start: 08/04/22 12:47 Freq: Status: Active Protocol: Document 08/04/22 11:25 [facility] (Rec: 08/04/22 13:03 [facility] [id number]) OT- Bed Mobility Assessment Rolling Type of Rolling Roll to Right Level of Assistance Maximum Assistance,2 Person Assistance Supine to Sit Supine to Sit Assist Maximum Assistance,2 Person Assistance Scooting Scooting to Edge of Bed Maximum Assistance,2 Person Assistance OT-Transfer Assessment Sit to and From Stand Sit to and from Stand Maximum Assistance,2 Person Assistance Transfers Transfer Ability Maximum Assistance,2 Person Assistance Technique Transfer Destination Bed,Chair Transfer Technique Stand Step Pivot Devices Transfer Assistive Devices Gait Belt,Front Wheeled Walker Comments Mobility Comments Pt MAX AX 2 to help roll and get upright to the edge of the bed. MAX AX 2 to stand to the FWW. VC to keep his legs straight, use of his arm on the FWW to push so able to more his legs. Pt needing assist to help hold pt upright , balance, guiding the FWW and to help lower him down to the recliner. OT- Gait Assessment Comments Gait Ability Comments Transfer only at this time versus margie. OT- Balance Assessment Sitting Balance and Reactions Static Sitting Balance Ability Poor Dynamic Sitting Balance Ability Poor Standing Balance and Reactions Static Standing Balance Ability Poor Dynamic Standing Balance Ability Poor Comments Other Balance Tests/Deviations/Treatment MODA for sitting balance. : M8 OT- IP Objective Assessments Start: 08/04/22 12:47 Freq: Status: Active Protocol: Document 08/04/22 11:25 [facility] (Rec: 08/04/22 13:03 [facility] [id number]) OT Strength Comments Strength Comments BUE 3+/5 to 4-/5 M9 OT- IP Assessment and Plan Start: 08/04/22 12:47 Freq: Status: Active Protocol: Document 08/04/22 11:25 [facility] (Rec: 08/04/22 13:03 [facility] [id number]) OT Summary Assessment and Plan Potential Rehabilitation Potential Good Analytic Complexity at Evaluation Low Summary OT Impairments Pain,Strength,Balance, Functional Mobility,Self- Feeding,Grooming,Dressing, Toileting,Bathing,Toilet Transfers,Shower Transfers, Activity Tolerance Progress Towards Goals Slow Progress due to Pain,Slow Progress due to Medical Issues,Slow Progress due to Activity Tolerance Assessment Summary Pt low complexity and main barriers are pain and now needing extensive MAX A x2 for all bed mobility and ADL needs. Pt will greatly benefit from skilled rehab prior to going home. Goals Grooming Goal Independent Dressing Goal Moderate Assistance Toileting Goal Independent Bathing Goal Minimal Assistance Toilet Transfer Goal Independent Shower Transfer Goal Minimal Assistance Days to Meet Goals 30 Frequency of Treatment Frequency Of Treatment Once a Day Treatment Plan OT Treatment Plan ADL Training,Functional Cognition Training,Functional Mobility,Patient/Family Education,Discharge Planning Other Treatment Recommendations and Next Transfer to [facility] [place] with MODAx2 Treatment Focus and FWW Discharge Recommendations OT Discharge Recommendations SNF Rehab Transportation Needs at Discharge Wheelchair/Cabulance
[2022-08-04 12:18] VITALS: BP 121/72; PULSE 72; RESP 16; TEMP 37.4; O2SAT 95
--- NOTE | 2022-08-04 14:56 | PT.IPTN ---
Current Diagnoses Other secondary scoliosis, lumbar region (08/03/22) Spinal stenosis, lumbar region with neurogenic claudication (08/03/22) Surgery Performed Operation Date: 08/03/22 07:45 Actual Procedures p L3-4, L4-5 TLIF w. posterior instrumentation-Robot - Mona Frances MD Physical Therapy Treatment Note M2 PT-IP Current Condition Start: 08/03/22 16:20 Freq: NEEDED Status: Active Protocol: Document 08/04/22 11:20 AB (Rec: 08/04/22 12:57 AB [id number]) Physical Therapy Current Condition Current Condition Evaluation Date 08/04/22 Treatment Diagnosis s/p L3-4, L4-5 TLIF; difficulty in walking Onset Date 08/03/22 M3 PT-IP Subjective Start: 08/03/22 16:20 Freq: NEEDED Status: Active Protocol: Document 08/04/22 14:42 LJ (Rec: 08/04/22 14:56 LJ [id number]) Subjective Physical Therapy Visit Type Type Treatment Note Visit Start Time 14:18 Visit Stop Time 14:43 Total Visit Minutes 25 Number of SERVICE CENTER MANAGER Visits 1 Physical Therapy Visit Comments Patient Comments agreeable to do PT; Assist from OT; family in room Therapy Pain Assessment Pain When Pain Assessed At Rest Pain Present Pain Present Pain Reported M4 PT-IP Mobility and Gait Start: 08/03/22 16:20 Freq: NEEDED Status: Active Protocol: Document 08/04/22 14:42 [facility] (Rec: 08/04/22 14:56 LJ [id number]) PT-Bed Mobility Assessment Rolling Type of Rolling Log Rolling Level of Assist Maximal Assistance,2 Person Assistance Sit to Supine Sit to Supine Maximum Assistance,2 Person Assistance,Bedrails PT-Transfer Assessment Sit to and From Stand Sit to and from Stand Maximum Assistance,2 Person Assistance,Use of Upper Extremities Equipment Transfer Assistive Device Gait Belt,Front Wheeled Walker Orthotic/Prosthetic Devices or Brace: No Transfers Transfer Destination Bed Transfer Technique Stand Step Pivot Transfer Ability Level of Assist Maximum Assistance,2 Person Assistance,Use of Upper Extremities Comments Mobility Comments Pt able to follow directions better this afternoon. Moves very slowly with max cues. Pt required MaxA x2 to scoot buttocks to edge of chair. Cues for hand placement to push off arm rests. Pt stood MaxA x2 with max cues to stand erect. Pt slowly took several very small steps to his left to position in front of bed. Max cues required for reaching back with hands and moving into sidelying while therapist assisted lifting LEs into bed . Pt was positioned in bed with pillows on sides and under LEs. Call light left lying on his chest. Pt left in room with daughter and son Gait Assessment Comments Gait Comments unable at this time M5 PT-IP Objective Assessments Start: 08/03/22 16:20 Freq: NEEDED Status: Active Protocol: Document 08/04/22 11:20 [facility] (Rec: 08/04/22 12:57 AB [id number]) Orientation Orientation/Cognition Level of Alertness Lethargic Orientation Name Safety Awareness Decreased Safety Awareness Memory Description Short Term Impaired Gross Range of Motion Lower Extremity ROM Assessment Within Functional Limits Strength Lower Extremity Strength Assessment Bilaterally Impaired Comments Strength Comments RLE: 3+/5 LLE: 4-/5 Muscle Tone Muscle Tone WNL Yes M6 PT-IP Treatment Start: 08/03/22 16:20 Freq: NEEDED Status: Active Protocol: Document 08/04/22 14:42 [facility] (Rec: 08/04/22 14:56 [facility] [id number]) Physical Therapy Treatment Exercises Exercises Ankle Pumps,Gluteal Sets,Quad Sets,Short Arc Quads Education Education Provided Safety M7 PT-IP Assessment and Plan Start: 08/03/22 16:20 Freq: NEEDED Status: Active Protocol: Document 08/04/22 14:42 [facility] (Rec: 08/04/22 14:56 [facility] [id number]) PT Summary Assessment and Plan Potential Rehabilitation Potential Fair Status of Condition at Evaluation Evolving Summary Impairments Pain,ROM,Strength,Balance, Coordination,Sensation,Tone, Cognition,Bed Mobility, Transfers,Gait,Activity Tolerance Assessment Summary pt requiring max A x 2 with all mobilities and unable to ambulate at this time. Improvement with following directions however still requires increased time for movement. Pt will require SNF rehab to improve overall strength and mobility. Goals Bed Mobility Goal Minimal Assistance Transfer Goal Minimal Assistance Gait Goal Minimal Assistance,Front Wheel Walker Gait Distance 50 Other Goals improve bed mobility, transfers using FWW and ambulation using fWW SBA ~ 150 ft up/down 3 steps L rail ascending SBA Days to Meet Goals 10 Frequency of Treatment Frequency Of Treatment Twice a Day Treatment Plan Physical Therapy Treatment Plan Bed Mobility Training,Transfer Training,Gait Training, Therapeutic Exercise,Balance Retraining,Post Op Education, Discharge Planning,Hot or Cold Pack,Neuromuscular Re-ed, Coordination Retraining,Manual Therapy Precautions Lumbar Precautions Log Roll,No Twisting,Limit Bending,Lifting Restriction of 10 lbs,Gait Belt above Incisional Area Recommendations To Nursing Amount of Assist Needed 2 Person Assist Discharge Recommendations PT Discharge Recommendations SNF Rehab Equipment Needed for Home Before FWW Discharge Transportation Needs at Discharge Wheelchair/Cabulance
[2022-08-04 17:00] VITALS: BP 118/70; PULSE 69; RESP 16; TEMP 37.4; O2SAT 94
--- NOTE | 2022-08-04 17:49 | CM.IDA ---
Initial DCP Assessment Patient is 62 y/o male who present to for planned TLIF surgery with Dr. Frances to address Spinal Stenosis and spondylosis with radiculopathy. Patient had surgery on 08/03/22. Per H&P, patient's plan post op was to d/c to home with daughter. Patient's PCP is Jasbir George, Patient has Medicare and [facility] Patient has hx of Rheumatoid Arthritis and Hypertension. USED CAR MAKE READY MECHANIC enters room to meet with patient, patient presents as fatigued. Patient presents as A/Ox4. Patient endorses he is independent with ADLs at baseline but slow patient endorses he uses a cane at baseline and drives. Patient endorses he resides in in [place] on daughter Will's property. Patient endorses daughter recently purchased a FWW for patient. Per PT and RN, patient is a 2 person assist and was only able to pivot. PT and OT recommend SNF rehab. USED CAR MAKE READY MECHANIC discusses SNF rehab with patient and patient denies preference for SNFs but is hopeful it will be closer to where he lives in [place], patient denies preference for HH if patient is able to d/c to home. USED CAR MAKE READY MECHANIC provides Medicare choice list. Patient endorses his daughter Will visited earlier today and just left. USED CAR MAKE READY MECHANIC calls January at [facility] and leaves for SNF rehab referral and requests return call to DCP USED CAR MAKE READY MECHANIC desk. Plan: Patient to continue to work with PT and OT, DCP to f/u with POC, SNF rehab vs. Home with HH if patient's mobility improves. [facility] SNF currently. ISAC Lei Discharge Planning/Care Management CM Discharge Assessment Start: 08/04/22 17:39 Freq: Status: Active Protocol: Document 08/04/22 17:39 LN (Rec: 08/04/22 17:47 LN [id number]) Discharge Planning Assessment Assigned Panel Builder ISAC Sal Advance Directives? No Advance Directives on File No History Provided By Patient,Medical Record Has Patient been admitted in last 30 No days? Prior Living Arrangements RV on daughter's property Household Members children Type of transportation used prior to Drives own vehicle admit Independent with ADL's Yes Is patient alert and oriented? Yes Comment Currently patient is not able to ambulate and slow with motor skills during Post op recovery. DME Already Rented / Owned FWW / Walker,Cane Comment Patient endorses he uses a cane at baseline and his daughter recently got him a FWW. Patient/Family Preference Senior Living Facility Comment Patient agreeable to SNF rehab Discharge Plan Senior Living Facility Referrals Initiated Senior Living If patient plan is SNF: Has PASSR been No completed? Inpatient Status as of 08/03/22 Medicare Choice List Provided Yes SNF/HH Preference No preference for SNF or HH, preference to stay close to home in [place] Has Agency SNF been contacted Yes Comment Shirley at [facility] has been contacted Whiteboard Updated in Patient Room with Yes name and ext. # of Panel Builder Please Provide Date Initial DC 08/04/22
[2022-08-04] MEDS: HYDROMORPHONE 4 MG TABLET PO (19:23)
[2022-08-04] MEDS: SENNOSIDES 8.6 MG TABLET 17.2 MG PO (20:21)
[2022-08-04 20:41] VITALS: BP 116/57; PULSE 62; RESP 18; TEMP 37.2; O2SAT 93
[2022-08-05] VITALS (7 sets, daily range): BP systolic 107–145; BP diastolic 52–78; PULSE 58–68; RESP 16–18; TEMP 35.7–37.6; O2SAT 93–96
[2022-08-05] MEDS: ACETAMINOPHEN 325 MG TABLET 650 MG PO ×5 (00:18→22:42)
[2022-08-05] MEDS: hydrOXYzine pamoate 25 MG CAPSULE PO ×2 (02:31→07:09)
[2022-08-05] MEDS: HYDROMORPHONE 4 MG TABLET PO ×3 (02:31→12:09)
--- NOTE | 2022-08-05 08:56 | PM.PNPO.1 ---
Subjective Subjective Date Patient Seen: 08/05/22 Time Patient Seen: 08:56 Interval history: The patient reports his back is ?sore?. He did not have physical therapy yesterday and has not attempted to ambulate. Exam Vital Signs (past 8 hours): - 08/05/22 05:56 08/05/22 08:00 Temperature 97.9 F 98.4 F Pulse Rate 63 64 Respiratory Rate 17 16 Blood Pressure 132/70 126/67 Pulse Oximetry 95 95 Oxygen Delivery Method Room Air Oxygen Flow Rate 0 Narrative Exam Narrative: On physical examination he is resting comfortably in bed in the supine position. Calves are soft. Light touch and motion are intact in both lower extremities. Objective Labs Result Diagrams: 08/04/22 06:51 PFSH Medical History Anxiety Diverticulitis HTN (hypertension) Osteoarthritis Rheumatoid arthritis Sciatica Surgical History History of appendectomy History of bilateral total hip arthroplasty History of inguinal hernia repair, bilateral Hx of umbilical hernia repair (06/22/20) Social History marital status: unknown household members: children occupational status: previously employed Smoking Status: Current every day smoker alcohol intake: current substance use type: does not use Assessment & Plan Post-op Postoperative Procedures: Procedures Operation Date: 08/03/22 07:45 Actual Procedure Side Surgeon p L3-4, L4-5 TLIF w. posterior instrumentation-Robot Mona Frances MD Postoperative day: 2 Postoperative status: doing well and marginal pain control Postoperative status narrative: He is stable postoperatively but has not made much progress with physical therapy. Postoperative plan: routine post-op care and ambulate Postoperative plan narrative: He will work with physical therapy today to begin ambulating. Depending on progress with physical therapy he may be able to go home tomorrow or possibly the next day. Time Spent With Patient Time with patient: less than 15 minutes Quality VTE Deep Vein Thrombosis/Pulmonary Embolism Present on Admission: No
[2022-08-05] MEDS: lisinopriL 20 MG TABLET 10 MG PO (09:42)
--- NOTE | 2022-08-05 09:48 | PT.IPTN ---
Current Diagnoses Other secondary scoliosis, lumbar region (08/03/22) Spinal stenosis, lumbar region with neurogenic claudication (08/03/22) Surgery Performed Operation Date: 08/03/22 07:45 Actual Procedures p L3-4, L4-5 TLIF w. posterior instrumentation-Robot - Mona Frances MD Physical Therapy Treatment Note M2 PT-IP Current Condition Start: 08/03/22 16:20 Freq: NEEDED Status: Active Protocol: Document 08/04/22 11:20 AB (Rec: 08/04/22 12:57 AB [id number]) Physical Therapy Current Condition Current Condition Evaluation Date 08/04/22 Treatment Diagnosis s/p L3-4, L4-5 TLIF; difficulty in walking Onset Date 08/03/22 M3 PT-IP Subjective Start: 08/03/22 16:20 Freq: NEEDED Status: Active Protocol: Document 08/05/22 09:48 AB (Rec: 08/05/22 11:56 AB [email or web address]) Subjective Physical Therapy Visit Type Type Treatment Note Visit Start Time 09:08 Visit Stop Time 09:48 Total Visit Minutes 40 Number of STARBUCKS CLERK Visits 0 Therapy Pain Assessment Pain When Pain Assessed At Rest Pain Present Pain Present Pain Reported Location back Scale Used pain scale not stated M4 PT-IP Mobility and Gait Start: 08/03/22 16:20 Freq: NEEDED Status: Active Protocol: Document 08/05/22 09:48 AB (Rec: 08/05/22 11:56 AB [email or web address]) PT-Bed Mobility Assessment Rolling Level of Assist Maximal Assistance Supine to Sit Supine to Sit Maximum Assistance,1 Person Assistance,2 Person Assistance ,Bedrails Scooting Scooting to Edge of Bed Maximum Assistance PT-Transfer Assessment Sit to and From Stand Sit to and from Stand Maximum Assistance,1 Person Assistance,Use of Upper Extremities Equipment Transfer Assistive Device Gait Belt,Front Wheeled Walker Orthotic/Prosthetic Devices or Brace: No Transfers Transfer Destination Chair Transfer Technique Stand Step Pivot Transfer Ability Level of Assist Maximum Assistance,Use of Upper Extremities Comments Mobility Comments reviewed back precautions with pt and pt does not recall any . pt also does not recall log roll bed mobility. completed supine to sit max A x 1-2 and max cues. pt continues to have difficulty follow directions and initiating any movements. requires increase time to complete all tasks. pt requires max A for initial sitting balance. repostioned pt on EOB max A for scooting and after repositioning requiring CGA for sitting balance. completed sit to stand max A and max cues and pivot towards the chair max A and max cues. pt agreed to walk a little bit and completed ~ 5 ft using FWW max A and max cues and chair follow. requires assist with use of FWW. pt presents with shuffling gait. pt sat back on chair. max A for controlled descent. positioned on the chair. call light and table placed within reach. Gait Assessment Gait Gait Assistance Required: Maximum Assistance,1 Person Assist Distance (Feet) 5 Able to Maintain Weight Bearing Status Yes During Gait Assistive Devices Assistive Device Gait Belt,Front Wheeled Walker Orthotic/Prosthetic Devices or Brace: No Gait Deviations General Gait Pattern Ataxic,Decreased Stride Length ,Decreased Feet Clearance,Step -to Gait Factors Limiting Gait Function Factors Limiting Gait Function Decreased Activity Tolerance, Decreased Sensation,Decreased Strength,Difficulty Following Directions,Limited Range of Motion,Pain,Poor Balance,Poor Safety Awareness M5 PT-IP Objective Assessments Start: 08/03/22 16:20 Freq: NEEDED Status: Active Protocol: Document 08/04/22 11:20 AB (Rec: 08/04/22 12:57 AB [email or web address]) Orientation Orientation/Cognition Level of Alertness Lethargic Orientation Name Safety Awareness Decreased Safety Awareness Memory Description Short Term Impaired Gross Range of Motion Lower Extremity ROM Assessment Within Functional Limits Strength Lower Extremity Strength Assessment Bilaterally Impaired Comments Strength Comments RLE: 3+/5 LLE: 4-/5 Muscle Tone Muscle Tone WNL Yes M6 PT-IP Treatment Start: 08/03/22 16:20 Freq: NEEDED Status: Active Protocol: Document 08/05/22 09:48 AB (Rec: 08/05/22 11:56 AB [email or web address]) Physical Therapy Treatment Education Education Provided Precautions,Safety M7 PT-IP Assessment and Plan Start: 08/03/22 16:20 Freq: NEEDED Status: Active Protocol: Document 08/05/22 09:48 AB (Rec: 08/05/22 11:56 AB [email or web address]) PT Summary Assessment and Plan Potential Rehabilitation Potential Fair Summary Impairments Pain,ROM,Strength,Balance, Coordination,Sensation,Tone, Cognition,Bed Mobility, Transfers,Gait,Activity Tolerance Progress Towards Goals Slow Progress due to Pain,Slow Progress due to Activity Tolerance Assessment Summary pt improving slowly and requiries max A for bed mobility, transfers and only able to ambulate ~ 5ft using fWW max A. pt will require SNF rehab to improve strength and function. Goals Bed Mobility Goal Minimal Assistance Transfer Goal Minimal Assistance Gait Goal Minimal Assistance,Front Wheel Walker Gait Distance 50 Other Goals improve bed mobility, transfers using FWW and ambulation using fWW SBA ~ 150 ft up/down 3 steps L rail ascending SBA Days to Meet Goals 10 Frequency of Treatment Frequency Of Treatment Twice a Day Treatment Plan Physical Therapy Treatment Plan Bed Mobility Training,Transfer Training,Gait Training, Therapeutic Exercise,Balance Retraining,Post Op Education, Discharge Planning,Hot or Cold Pack,Neuromuscular Re-ed, Coordination Retraining,Manual Therapy Precautions Lumbar Precautions Log Roll,No Twisting,Limit Bending,Lifting Restriction of 10 lbs,Gait Belt above Incisional Area Recommendations To Nursing Amount of Assist Needed 2 Person Assist Discharge Recommendations PT Discharge Recommendations SNF Rehab Equipment Needed for Home Before FWW Discharge Transportation Needs at Discharge Wheelchair/Cabulance
[2022-08-05] MEDS: DOCUSATE 100 MG CAPSULE PO ×2 (09:50→22:13)
--- NOTE | 2022-08-05 15:56 | PT.IPTN ---
Current Diagnoses Other secondary scoliosis, lumbar region (08/03/22) Spinal stenosis, lumbar region with neurogenic claudication (08/03/22) Surgery Performed Operation Date: 08/03/22 07:45 Actual Procedures p L3-4, L4-5 TLIF w. posterior instrumentation-Robot - Mona Frances MD Physical Therapy Treatment Note M2 PT-IP Current Condition Start: 08/03/22 16:20 Freq: NEEDED Status: Active Protocol: Document 08/04/22 11:20 AB (Rec: 08/04/22 12:57 AB [id number]) Physical Therapy Current Condition Current Condition Evaluation Date 08/04/22 Treatment Diagnosis s/p L3-4, L4-5 TLIF; difficulty in walking Onset Date 08/03/22 M3 PT-IP Subjective Start: 08/03/22 16:20 Freq: NEEDED Status: Active Protocol: Document 08/05/22 15:41 LJ (Rec: 08/05/22 15:56 LJ [id number]) Subjective Physical Therapy Visit Type Type Treatment Note Visit Start Time 15:16 Visit Stop Time 15:40 Total Visit Minutes 24 Number of LINE REPAIRER Visits 1 Therapy Pain Assessment Pain When Pain Assessed At Rest Pain Present Pain Present Pain Reported Location back Scale Used pain scale not stated M4 PT-IP Mobility and Gait Start: 08/03/22 16:20 Freq: NEEDED Status: Active Protocol: Document 08/05/22 15:41 LJ (Rec: 08/05/22 15:56 LJ [id number]) PT-Bed Mobility Assessment Rolling Type of Rolling Roll to Right Supine to Sit Supine to Sit Maximum Assistance,1 Person Assistance,2 Person Assistance ,Bedrails Scooting Scooting to Edge of Bed Maximum Assistance PT-Transfer Assessment Sit to and From Stand Sit to and from Stand Maximum Assistance,1 Person Assistance,Use of Upper Extremities Equipment Transfer Assistive Device Gait Belt,Front Wheeled Walker Orthotic/Prosthetic Devices or Brace: No Transfers Transfer Destination Chair Transfer Technique ambulated Transfer Ability Level of Assist Maximum Assistance,Use of Upper Extremities Comments Mobility Comments Pt still not recalling back precautions. MaxA x1 and max cues for logroll and shifting LEs off side of bed. MaxA x2 for scoot to edge of bed using herve. Pt sat on side of bed ~1 min then MaxA x1 and cues for posture. Pt asked to weight shift and lift one foot at a time prior to attempting to ambulate to chair ~3' away . Pt able to lift feet off floor but has difficulty advancing feet. Pt able to take multiple small steps forward, sideways, and backwards to position in front of chair. Cues to reach back before sitting in chair. Pt lowered self into chair but was too far toward right side to sit in comfortably. Pt then used UEs to push off chair and lift buttocks to shift to left. Pt was left in room with son and all needs within reach. Gait Assessment Gait Gait Assistance Required: Maximum Assistance,1 Person Assist Distance (Feet) 3 Able to Maintain Weight Bearing Status Yes During Gait Assistive Devices Assistive Device Gait Belt,Front Wheeled Walker Orthotic/Prosthetic Devices or Brace: No Gait Deviations General Gait Pattern Ataxic,Decreased Stride Length ,Decreased Feet Clearance,Step -to Gait Factors Limiting Gait Function Factors Limiting Gait Function Decreased Activity Tolerance, Decreased Sensation,Decreased Strength,Difficulty Following Directions,Limited Range of Motion,Pain,Poor Balance,Poor Safety Awareness M5 PT-IP Objective Assessments Start: 08/03/22 16:20 Freq: NEEDED Status: Active Protocol: Document 08/04/22 11:20 AB (Rec: 08/04/22 12:57 AB [id number]) Orientation Orientation/Cognition Level of Alertness Lethargic Orientation Name Safety Awareness Decreased Safety Awareness Memory Description Short Term Impaired Gross Range of Motion Lower Extremity ROM Assessment Within Functional Limits Strength Lower Extremity Strength Assessment Bilaterally Impaired Comments Strength Comments RLE: 3+/5 LLE: 4-/5 Muscle Tone Muscle Tone WNL Yes M6 PT-IP Treatment Start: 08/03/22 16:20 Freq: NEEDED Status: Active Protocol: Document 08/05/22 15:41 (Rec: 08/05/22 15:56 [id number]) Physical Therapy Treatment Education Education Provided Precautions,Safety M7 PT-IP Assessment and Plan Start: 08/03/22 16:20 Freq: NEEDED Status: Active Protocol: Document 08/05/22 15:41 (Rec: 08/05/22 15:56 [id number]) PT Summary Assessment and Plan Potential Rehabilitation Potential Fair Summary Impairments Pain,ROM,Strength,Balance, Coordination,Sensation,Tone, Cognition,Bed Mobility, Transfers,Gait,Activity Tolerance Progress Towards Goals Slow Progress due to Pain,Slow Progress due to Activity Tolerance Assessment Summary Pt continues to move very slowly and requires max cueing for all mobility, transfers, and gait. Will require SNF to improve strength and function. Goals Bed Mobility Goal Minimal Assistance Transfer Goal Minimal Assistance Gait Goal Minimal Assistance,Front Wheel Walker Gait Distance 50 Other Goals improve bed mobility, transfers using FWW and ambulation using fWW SBA ~ 150 ft up/down 3 steps L rail ascending SBA Days to Meet Goals 10 Frequency of Treatment Frequency Of Treatment Twice a Day Treatment Plan Physical Therapy Treatment Plan Bed Mobility Training,Transfer Training,Gait Training, Therapeutic Exercise,Balance Retraining,Post Op Education, Discharge Planning,Hot or Cold Pack,Neuromuscular Re-ed, Coordination Retraining,Manual Therapy Precautions Lumbar Precautions Log Roll,No Twisting,Limit Bending,Lifting Restriction of 10 lbs,Gait Belt above Incisional Area Recommendations To Nursing Amount of Assist Needed 2 Person Assist Discharge Recommendations PT Discharge Recommendations SNF Rehab Equipment Needed for Home Before FWW Discharge Transportation Needs at Discharge Wheelchair/Cabulance
[2022-08-05] MEDS: HYDROMORPHONE 2 MG TABLET PO ×2 (18:20→22:13)
[2022-08-05] MEDS: SENNOSIDES 8.6 MG TABLET 17.2 MG PO (22:12)
[2022-08-06 03:19] VITALS: BP 134/77; PULSE 60; RESP 18; TEMP 36.4; O2SAT 98
[2022-08-06] MEDS: ACETAMINOPHEN 325 MG TABLET 650 MG PO ×2 (04:33→12:29)
[2022-08-06] MEDS: HYDROMORPHONE 2 MG TABLET PO ×2 (04:34→09:54)
[2022-08-06 08:30] VITALS: BP 165/89; PULSE 62; RESP 20; TEMP 36.6; O2SAT 96
[2022-08-06] MEDS: lisinopriL 20 MG TABLET 10 MG PO (09:54)
[2022-08-06] MEDS: DOCUSATE 100 MG CAPSULE PO (09:55)
--- NOTE | 2022-08-06 10:00 | P.DS_ITS ---
History of Present Illness History of Present Illness Chief complaint: INPT Narrative: Operative Date/Time/Diagnoses Date of procedure: 08/03/22 Time of procedure: 07:40 Pre-op diagnosis: 1. L3-4, L4-5 spinal stenosis 2. L3-4, L4-5 spondylosis with radiculopathy Post-op diagnosis: same Procedure & Clinicians Procedure: 1. L3-4, L4-5 Postero-lateral and posterior interbody fusion 2. L3-4, L4-5 interbody cage placement. 3. L3-4, L4-5 decompressive laminectomy with bilateral facetecomies 4. L3-4, L4-5 Posterior segmental instrumentation 5. [place] of bone marrow from iliac crest 6. Utilization of microsurgical technique and operating microscope 7. Utilization of robotic assisted navigation Same procedure as scheduled: Yes Indications: ?Patient has been having chronic back pain and worsening lumbar radiculopathy. Patient failed multiple conservative management with worsening pain weakness and numbness in his lower extremity.? Patient has been having difficulty performing activity of daily living.? After discussing risks benefits of treatment options, patient elected proceed with surgery. Surgeon: Mona Frances Furnace Process Supervisor: Melina Hill Click Yes if Unassisted: No Anesthesia Type: General Operative Notes Closure Type: primary Specimen(s): none sent Prosthetic devices, grafts, tissues, transplants, or devices: Globus CREO MIS screws, Rise cages Applied: catheter Estimated Blood Loss (mL): 75 Blood products transfused: none Discharge Providers Provider Date of admission: 08/03/22 06:21 Discharge Date: 08/06/22 Primary care physician: Jasbir George MD Consults: 08/03/22 13:09 Consult to Occupational Therapy Evaluate & Treat Comment: Physician Instructions: Evaluate and treat Consult to Physical Therapy Evaluate & Treat Comment: Physician Instructions: Evaluate and Treat Discharge provider: Melina Hill PA-C Summary Hospital Course Discharge Diagnosis: Lumbar stenosis and spondylosis w/ radiculopathy, s/p lumbar fusion Hospital Course: Mr Huynh's hospital course was remarkable for poor pain control, which slowed his progress w/ PT. On POD# 3 he was felt to need more rehab and the plan was for him to discharge to a SNF prior to going home. He was eating and voiding without difficulty. He was complaining of back pain, denied leg pain. His pain was controlled with oral medications. Exam Vital Signs (past 8 hours): - 08/06/22 03:19 Temperature 97.5 F L Pulse Rate 60 Respiratory Rate 18 Blood Pressure 134/77 Pulse Oximetry 98 Oxygen Delivery Method Room Air Oxygen Flow Rate 0 Narrative Exam Narrative: 5/5 strength in quadriceps, hamstrings, DF, PF, EHL. Makes no effort to flex at hips. Sensation to light touch intact throughout BLE. Calves soft, compressible, nontender and without palpable cords or masses. Dressings placed intraoperatively w/ minimal old drainage; otherwise intact. Objective Labs Result Diagrams: 08/04/22 06:51 PFSH Medical History Anxiety Diverticulitis HTN (hypertension) Osteoarthritis Rheumatoid arthritis Sciatica Surgical History History of appendectomy History of bilateral total hip arthroplasty History of inguinal hernia repair, bilateral Hx of umbilical hernia repair (06/22/20) Social History marital status: unknown household members: children occupational status: previously employed Smoking Status: Current every day smoker alcohol intake: current substance use type: does not use Discharge Assessment & Plan Assessment and Plan Assessment: Lumbar stenosis and spondylosis w/ radiculopathy, s/p lumbar fusion Plan of Treatment: Discharge to SNF. Scheduled Tylenol w/ PRN methocarbamol and oxycodone for pain control. PO dilaudid for uncontrolled breakthrough pain only. F/u in 2 weeks. Discharge Plan Discharge Plan Patient Disposition: SNF Transfer to: [facility] Discharge orders & Medications Prescriptions: New hydromorphone 2 mg Tablet 2 mg PO Q6H PRN (Reason: Pain, Severe (7-10)) Qty: 7 0RF Rx Instructions: Take ONLY if you have taken full amt of Tylenol, methocarbamol, and oxy and are still having pain oxycodone 5 mg Tablet 5 mg PO Q4H PRN (Reason: Pain, Moderate (4-6)) Qty: 60 0RF Rx Instructions: May take 1-2 tabs (5-10mg) q 4 hrs PRN moderate to severe pain docusate sodium 100 mg Capsule 100 mg PO BID PRN (Reason: constipation) Qty: 60 1RF acetaminophen 325 mg Tablet 650 mg PO Q6HR Qty: 240 0RF Continued infliximab [Remicade] 100 MG recon soln See Rx Instructions .ROUTE .COMPLEX Qty: 0 Rx Instructions: 100 mg intravenously q 5 weeks lisinopril 20 mg Tablet 10 mg PO DAILY lidocaine [Lidoderm] 5 % adhesive patch,medicated 1 patch topical DAILY PRN (Reason: pain) Qty: 15 0RF Rx Instructions: leave on most painful area for up to 12 hrs methocarbamol 750 mg tablet 750 mg PO Q8H PRN (Reason: muscle spasm) Qty: 30 0RF Rx Instructions: will make you drowsy Discontinued hydrocodone-acetaminophen 5-325 mg tablet 1 tab PO TID PRN (Reason: pain) Qty: 20 0RF Follow up/Referrals: Jasbir George MD [Primary Care Provider] - Mnoa Frances MD [Physician] - 2 Weeks (Need f/u appt in 10-14 days after surgery for staple removal/wound check.) Diet/Activity/Treatments Diet: Diet as Tolerated Activity: No deep bending or twisting at the waist. No lifting more than 10 pounds. Skin/Wound/Dressing Care Report to your healthcare provider any signs of infection, such as:: chills, fever, night sweats, unusual drainage and unusual redness Dressing: May shower; keep dressing as dry as possible. If dressing becomes dirty or wet inside, remove and replace with clean, dry gauze. No bathing or otherwise soaking incisions. Do not apply any creams, lotions, or ointments to incisions. [facility] Rehab type: Physical therapy and Occupational therapy Visit Report/Discharge Packet Instructions: DI for Prescription Opioid Use, DI for Transforaminal Lumbar Interbody Fusion Stand Alone Forms: Surgery Discharge Discharge Data Primary Care Provider: Jasbir George Quality VTE Deep Vein Thrombosis/Pulmonary Embolism Present on Admission: No
--- NOTE | 2022-08-06 10:05 | PT.IPTN ---
Current Diagnoses Other secondary scoliosis, lumbar region (08/03/22) Spinal stenosis, lumbar region with neurogenic claudication (08/03/22) Arthrodesis status (08/03/22) Surgery Performed Operation Date: 08/03/22 07:45 Actual Procedures p L3-4, L4-5 TLIF w. posterior instrumentation-Robot - Mona Frances MD Physical Therapy Treatment Note M2 PT-IP Current Condition Start: 08/03/22 16:20 Freq: NEEDED Status: Active Protocol: Document 08/04/22 11:20 AB (Rec: 08/04/22 12:57 AB [email or web address]) Physical Therapy Current Condition Current Condition Evaluation Date 08/04/22 Treatment Diagnosis s/p L3-4, L4-5 TLIF; difficulty in walking Onset Date 08/03/22 M3 PT-IP Subjective Start: 08/03/22 16:20 Freq: NEEDED Status: Active Protocol: Document 08/06/22 10:05 AW (Rec: 08/06/22 11:34 AW [id number]) Subjective Physical Therapy Visit Type Type Treatment Note Visit Start Time 09:48 Visit Stop Time 10:05 Total Visit Minutes 17 Number of STRUCTURAL DESIGN ENGINEER Visits 0 Physical Therapy Visit Comments Patient Comments Pt is willing to participate with PT Therapy Pain Assessment Pain When Pain Assessed At Rest Pain Present Pain Present Pain Reported Location back Intensity 7 Scale Used Numeric (0 - 10) M4 PT-IP Mobility and Gait Start: 08/03/22 16:20 Freq: NEEDED Status: Active Protocol: Document 08/06/22 10:05 AW (Rec: 08/06/22 11:34 AW [id number]) PT-Transfer Assessment Sit to and From Stand Sit to and from Stand Maximum Assistance,1 Person Assistance,Use of Upper Extremities Equipment Transfer Assistive Device Gait Belt,Front Wheeled Walker Orthotic/Prosthetic Devices or Brace: No Transfers Transfer Destination Chair Transfer Technique ambulated with FWW Transfer Ability Level of Assist Maximum Assistance,Use of Upper Extremities Comments Mobility Comments Pt has no recall of back precautions. He was sitting up in the chair as PT arrived. He stood with max A and agreed to walk to the sink. With FWW , he needed max A to walk 12 feet to the sink. Gait was slow and labored with heavy UE weightbearing on the walker and pt complaining of increased pain. He stood at the sink with min A for balance support as he brushed his teeth. He returned to the chair with FWW max A and needed cues and assist for controlled descent to sitting. Pt was left with call light and tray table in reach. Gait Assessment Gait Gait Assistance Required: Maximum Assistance,1 Person Assist Distance (Feet) 24 Able to Maintain Weight Bearing Status Yes During Gait Assistive Devices Assistive Device Gait Belt,Front Wheeled Walker Orthotic/Prosthetic Devices or Brace: No Gait Deviations General Gait Pattern Ataxic,Decreased Stride Length ,Decreased Feet Clearance,Step -to Gait Factors Limiting Gait Function Factors Limiting Gait Function Decreased Activity Tolerance, Decreased Sensation,Decreased Strength,Difficulty Following Directions,Limited Range of Motion,Pain,Poor Balance,Poor Safety Awareness Comments Gait Comments Pt has poor LE elevation and tends to slide his feet along the floor. He is flexed at the hips during gait and leans heavily on FWW. PT-Balance Assessment Sitting Balance and Reactions Static Sitting Balance Ability Poor Dynamic Sitting Balance Ability Fair Standing Balance and Reactions Static Standing Balance Ability Poor Dynamic Standing Balance Ability Poor Device Used FWW M5 PT-IP Objective Assessments Start: 08/03/22 16:20 Freq: NEEDED Status: Active Protocol: Document 08/04/22 11:20 AB (Rec: 08/04/22 12:57 AB [id number]) Orientation Orientation/Cognition Level of Alertness Lethargic Orientation Name Safety Awareness Decreased Safety Awareness Memory Description Short Term Impaired Gross Range of Motion Lower Extremity ROM Assessment Within Functional Limits Strength Lower Extremity Strength Assessment Bilaterally Impaired Comments Strength Comments RLE: 3+/5 LLE: 4-/5 Muscle Tone Muscle Tone WNL Yes M6 PT-IP Treatment Start: 08/03/22 16:20 Freq: NEEDED Status: Active Protocol: Document 08/06/22 10:05 AW (Rec: 08/06/22 11:34 AW [id number]) Physical Therapy Treatment Education Education Provided Precautions,Safety M7 PT-IP Assessment and Plan Start: 08/03/22 16:20 Freq: NEEDED Status: Active Protocol: Document 08/06/22 10:05 AW (Rec: 08/06/22 11:34 AW [id number]) PT Summary Assessment and Plan Potential Rehabilitation Potential Fair Summary Impairments Pain,ROM,Strength,Balance, Coordination,Sensation,Tone, Cognition,Bed Mobility, Transfers,Gait,Activity Tolerance Progress Towards Goals Slow Progress due to Pain,Slow Progress due to Activity Tolerance Assessment Summary Pt needs max cues and assist for mobility with FWW. He did increase his gait distance today and tolerated 20-25 feet with FWW. He will require SNF rehab to improve strength and assist in his functional recovery. Goals Bed Mobility Goal Minimal Assistance Transfer Goal Minimal Assistance Gait Goal Minimal Assistance,Front Wheel Walker Gait Distance 50 Other Goals improve bed mobility, transfers using FWW and ambulation using fWW SBA ~ 150 ft up/down 3 steps L rail ascending SBA Days to Meet Goals 10 Frequency of Treatment Frequency Of Treatment Twice a Day Treatment Plan Physical Therapy Treatment Plan Bed Mobility Training,Transfer Training,Gait Training, Therapeutic Exercise,Balance Retraining,Post Op Education, Discharge Planning,Hot or Cold Pack,Neuromuscular Re-ed, Coordination Retraining,Manual Therapy Precautions Lumbar Precautions Log Roll,No Twisting,Limit Bending,Lifting Restriction of 10 lbs,Gait Belt above Incisional Area Recommendations To Nursing Amount of Assist Needed 1 Person Assist,2 Person Assist Discharge Recommendations PT Discharge Recommendations SNF Rehab Equipment Needed for Home Before FWW Discharge Transportation Needs at Discharge Wheelchair/Cabulance
[2022-08-06] MEDS: OXYCODONE IR 5 MG TABLET 10 MG PO (12:29)
[2022-08-06 13:14] LABS: COVID19 -Nasal RAPID Negative (Negative)
--- NOTE | 2022-08-06 13:51 | CM.DPC ---
DCP/continued: Spoke with provider this AM. She reports patient okay to d/c to SNF today. Asked ortho provider to write orders. She is agreeable. Placed call to January at [facility] and she confirms acceptance. gardening supervisor scheduled for approximately 1:00pm. RN given number to call nrusing report. Met with patient to confirm plan. Patient is aware and agreeable to plan. COVID swab needed prior to d/c. RN aware.' P: [facility] today. [facility]
== END 2022-08-06 13:15 | DRG 455 ==
PROVIDERS: Physician Assistant; Admitting Provider Orthopaedic Surgery Orthopaedic Surgery of the Spine; PCP Family Medicine; Referring Provider Orthopaedic Surgery; Visit Provider Orthopaedic Surgery Orthopaedic Surgery of the Spine
PROC: 0SG10AJ Fusion of 2 or more Lumbar Vertebral Joints with Interbody Fusion Device, Posterior Approach, Anterior Column, Open Approach (ICD-10-PCS; principal; 2022-08-03 07:45)
DX: M47.26 Other spondylosis with radiculopathy, lumbar region (principal); M48.062 Spinal stenosis, lumbar region with neurogenic claudication; M41.56 Other secondary scoliosis, lumbar region; G89.18 Other acute postprocedural pain; M06.9 Rheumatoid arthritis, unspecified; I10 Essential (primary) hypertension; F17.210 Nicotine dependence, cigarettes, uncomplicated; Z20.822 Contact with and (suspected) exposure to COVID-19
CPT/HCPCS: 72100; 76000; 82962; 85014; 85018; 87635; 97110; 97116; 97162; 97165; 97530; C9803; C1831; C9290; J0330; J0690; J1170; J2250; J2405; J2704; J3010; J3410

== ENCOUNTER → 2022-08-30 11:48 | Outpatient (CLI) | payer MEDICARE, OTHER, SELFPAY ==
[2022-08-03 13:12] VITALS: BMI 30.6
[2022-08-30 13:04] LABS: Add Manual Diff / Slide Review NO; Basophils Absolute Auto 0 /uL (0-100); Basophils Percent Auto 0.3 % (0-2); Eosinophils Absolute Auto 200 /uL (0-450); Eosinophils Percent Auto 2.8 % (2-4); Hematocrit 39.6 % (41-53); Lymphocytes Absolute Auto 2500 /uL (1100-4500); Lymphocytes Percent Auto 29.9 % (25-40); Mean Corpuscular HGB Conc 32.7 % (30-36); Mean Corpuscular Hemoglobin 30.9 PG (26-34); Mean Corpuscular Volume 94.4 fL (80-100); Monocytes Absolute Auto 800 /uL (0-900); Monocytes Percent Auto 9.2 % (3-14); Neutrophils Absolute Auto 4900 /uL (1500-7000); Neutrophils Percent Auto 57.8 % (50-75); Platelet Count 278 X10^3/uL (150-400); Red Cell Distribution Width 13.1 % (11.6-14.8); White Blood Cell Count 8.5 X10^3/uL (4.5-11.0)
[2022-08-30 13:48] LABS: Alanine Aminotransferase 26 IU/L (<50); Albumin 4.5 g/dL (3.5-5.0); Albumin Globulin Ratio 1.5 (1.0-2.8); Alkaline Phosphatase 90 U/L (38-126); Aspartate Aminotransferase 20 IU/L (17-59); BUN Creatinine Ratio 20.7 (6-22); Bilirubin Total 0.4 mg/dL (0.2-1.3); Blood Urea Nitrogen 18 mg/dL (9-20); C-Reactive Protein Quant < 0.5 mg/dL (<1.0); Carbon Dioxide 28 mmol/L (22-32); Chloride 103 mmol/L (98-107); Estimated Glomerular Filt Rate > 60 mL/min (>60); Globulin 3.1 g/dL (1.7-4.1); Glucose 93 mg/dL (80-110); HEMOLYSIS < 15 (0-50); Potassium 4.7 mmol/L (3.4-5.1); Sodium 141 mmol/L (137-145); Total Protein 7.6 g/dL (6.3-8.2)
[2022-08-30 14:29] LABS: Erythrocyte Sedimentation Rate 20 MM/HR (0-15)
== END ==
PROVIDERS: PCP Family Medicine; Referring Provider Internal Medicine Rheumatology; Visit Provider Internal Medicine Rheumatology
DX: M45.9 Ankylosing spondylitis of unspecified sites in spine (principal); Z79.899 Other long term (current) drug therapy
CPT/HCPCS: 36415; 80053; 85025; 85651; 86140

== ENCOUNTER 2023-01-24 15:01 | Emergency (ER) | payer MEDICARE, OTHER, SELFPAY ==
[2022-08-03 13:12] VITALS: BMI 30.6
[2023-01-24 15:28] VITALS: BP 158/82; PULSE 66; RESP 18; TEMP 36.6; O2SAT 98; BMI 28.2
--- NOTE | 2023-01-24 15:39 | DI.RAD.S_ITS ---
PROCEDURE: XR LUMBAR SPINE 2-3V INDICATIONS: pain TECHNIQUE: 3 views of the lumbar spine were acquired. COMPARISON: [facility], , XR LUMBAR SPINE 2-3V, 08/03/2022, 9:31. FINDINGS: Bones: 5 [id number] vertebrae are present. Slight rightward curvature centered at L4. Posterior and interbody surgical fusion L3 through L5, without hardware complication. Moderate disc height loss at L2-3. Soft tissues: Overlying bowel gas pattern is normal. No suspicious soft tissue calcifications. IMPRESSION: Posterior surgical fusion at L3 through L5, without hardware complication. No acute abnormality otherwise. Dictated by: Peter Orellana M.D. on 01/24/2023 at 16:09 Approved by: Peter Orellana M.D. on 01/24/2023 at 16:10
--- NOTE | 2023-01-24 16:32 | ED_ITS ---
HPI - Back Pain/Injury <Clary Calderón [facility] - Last Filed: 01/24/23 16:52> General Chief Complaint: Back Pain/Injury Stated Complaint: fell/post back surgery Time Seen by Provider: 01/24/23 16:32 Source: patient History of Present Illness HPI Narrative: This is a 62-year-old gentleman who presents to the emergency department after he had a fall earlier today and now has worsening low back pain, bilateral hip pain and is concerned about his hardware. He states that he had lumbar surgery by Dr. Frances in July of 2022. He complains midline low back pain which radiates to bilateral hips. Denies weakness, urinary incontinence or retention, stool changes, states that he is not on any pain medication at baseline. States that he is in physical therapy, has been doing pretty well but today after this fall he has severe pain and is concerned about a fracture or hardware abnormality. Patient has a history of rheumatoid arthritis, anxiety and depression, hypertension, osteoarthritis, sciatica of left lower extremity. Related Data Home Medications Medication Instructions Recorded Confirmed infliximab 100 mg intravenous See Rx Instructions .Route 12/28/12 08/03/22 solution (Remicade) .COMPLEX ##0 lisinopril 20 mg tablet 10 mg PO DAILY 08/01/22 08/03/22 Previous Rx's Medication Instructions Recorded hydrocodone 5 mg-acetaminophen 325 1 tab PO TID PRN pain #20 tabs 07/14/22 mg tablet lidocaine 5 % topical patch 1 patch topical DAILY PRN pain #15 07/14/22 (Lidoderm) ea acetaminophen 325 mg tablet 650 mg PO Q6HR #240 tabs 08/06/22 docusate sodium 100 mg capsule 100 mg PO BID PRN constipation #60 08/06/22 caps hydromorphone 2 mg tablet 2 mg PO Q6H PRN Pain, Severe 08/06/22 (7-10) #7 tabs methocarbamol 750 mg tablet 750 mg PO Q8H PRN muscle spasm #30 08/06/22 tabs oxycodone 5 mg tablet 5 mg PO Q4H PRN Pain, Moderate 08/06/22 (4-6) #60 tabs hydrocodone 5 mg-acetaminophen 325 1 tab PO TID PRN pain #14 tabs 01/24/23 mg tablet ibuprofen 600 mg tablet 600 mg PO Q6-8H PRN fever or pain 01/24/23 #30 tabs lidocaine 5 % topical patch 1 patch topical DAILY PRN back 01/24/23 (Lidoderm) pain #30 ea methocarbamol 500 mg tablet 500 mg PO TID PRN muscle spasm #30 01/24/23 tabs prednisone 20 mg tablet 40 mg PO DAILY 5 days #8 tabs 01/24/23 Allergies Allergy/AdvReac Type Severity Reaction Status Date / Time No Known Drug Allergies Allergy Verified 08/03/22 06:44 Review of Systems <CONCETTA Araujo - Last Filed: 01/24/23 16:52> Review of Systems ROS Unobtainable: All systems reviewed & are unremarkable except as noted in HPI and below Patient History <CONCETTA Araujo - Last Filed: 01/24/23 16:52> Medical History Anxiety Diverticulitis HTN (hypertension) Osteoarthritis Rheumatoid arthritis Sciatica Surgical History History of appendectomy History of bilateral total hip arthroplasty History of inguinal hernia repair, bilateral Hx of umbilical hernia repair (06/22/20) Social History marital status: unknown household members: children occupational status: previously employed Smoking Status: Current every day smoker alcohol intake: current substance use type: does not use Smoking Status: Current every day smoker alcohol intake frequency: a few times a month Substance Use Type: does not use Exam <CONCETTA Araujo - Last Filed: 01/24/23 16:52> Narrative Exam Narrative: Reviewed vitals signs and nursing notes. General: Pleasant, sitting upright, well groomed, afebrile, sitting upright in wheelchair, appears uncomfortable and is shifting his weight frequently HEENT: symmetrical facial expressions, moist mucous membranes, neck is supple CV: regular rate and rhythm, warm extremities Respiratory: normal work of breathing, without tachypnea or hypoxia. GI: abdomen soft, nondistended, without CVA tenderness bilaterally. MSK: moves all extremities, no weakness, normal tone, leg lift on bilateral sides exacerbates pain, patient is ambulatory, nontender over his lumbar and sacral spine but complains of radiation into his bilateral hips which feels like previous sciatica. Normal reflexes, crossing tender but free of any obvious external abnormalities. Patient exam notes decreased range of motion and muscle spasm, but no CVA tenderness, or vertebral point tenderness. There are no symptoms of cauda equina such as saddle anesthesia, and decreased reflexes, decreased sensation or strength. Skin: brisk capillary refill, without rash or wound Neuro: clear speech and normal cognition, A&O x3, GCS 15, no focal motor or sensation deficits Initial Vital Signs Initial Vital Signs: Vital Signs Temperature 97.9 F 01/24/23 15:28 Pulse Rate 66 01/24/23 15:28 Respiratory Rate 18 01/24/23 15:28 Blood Pressure 158/82 H 01/24/23 15:28 Pulse Oximetry 98 01/24/23 15:28 Oxygen Delivery Method Room Air 01/24/23 15:28 <Derick Valles MD - Last Filed: 01/27/23 12:44> Initial Vital Signs Initial Vital Signs: Vital Signs Temperature 97.9 F 01/24/23 15:28 Pulse Rate 66 01/24/23 15:28 Respiratory Rate 18 01/24/23 15:28 Blood Pressure 158/82 H 01/24/23 15:28 Pulse Oximetry 98 01/24/23 15:28 Oxygen Delivery Method Room Air 01/24/23 15:28 Course <CONCETTA Araujo - Last Filed: 01/24/23 16:52> Orders Ordered: Discontinued Medications Hydrocodone Bitart/Acetaminophen (Hydrocodone/Acet 5/325 Tablet) 1 tab PO NOW ONE Stop: 01/24/23 16:40 Last Admin: 01/24/23 16:45 Dose: 1 tab Documented By: SUJEY Ketorolac Tromethamine (Ketorolac 30 Mg/Ml Vial) 30 mg IM NOW ONE Stop: 01/24/23 16:40 Last Admin: 01/24/23 16:45 Dose: 30 mg Documented By: SUJEY Lidocaine (Lidocaine Patch 1 Each Adh..Patch) 1 each TOP NOW ONE Stop: 01/24/23 16:40 Last Admin: 01/24/23 16:45 Dose: 1 each Documented By: SUJEY Methocarbamol (Methocarbamol 500 Mg Tablet) 500 mg PO NOW ONE Stop: 01/24/23 16:40 Last Admin: 01/24/23 16:45 Dose: 500 mg Documented By: SUJEY Prednisone (Prednisone 20 Mg Tablet) 40 mg PO NOW ONE Stop: 01/24/23 16:40 Last Admin: 01/24/23 16:47 Dose: 40 mg Documented By: SUJEY Vital Signs Vital signs: Vital Signs - 8 hr 01/24/23 15:28 Temperature 97.9 F Pulse Rate 66 Respiratory Rate 18 Blood Pressure 158/82 H Pulse Oximetry 98 Oxygen Delivery Method Room Air <Derick Valles MD - Last Filed: 01/27/23 12:44> Orders Ordered: Discontinued Medications Hydrocodone Bitart/Acetaminophen (Hydrocodone/Acet 5/325 Tablet) 1 tab PO NOW ONE Stop: 01/24/23 16:40 Last Admin: 01/24/23 16:45 Dose: 1 tab Documented By: SUJEY Ketorolac Tromethamine (Ketorolac 30 Mg/Ml Vial) 30 mg IM NOW ONE Stop: 01/24/23 16:40 Last Admin: 01/24/23 16:45 Dose: 30 mg Documented By: SUJEY Lidocaine (Lidocaine Patch 1 Each Adh..Patch) 1 each TOP NOW ONE Stop: 01/24/23 16:40 Last Admin: 01/24/23 16:45 Dose: 1 each Documented By: SUJEY Methocarbamol (Methocarbamol 500 Mg Tablet) 500 mg PO NOW ONE Stop: 01/24/23 16:40 Last Admin: 01/24/23 16:45 Dose: 500 mg Documented By: SUJEY Prednisone (Prednisone 20 Mg Tablet) 40 mg PO NOW ONE Stop: 01/24/23 16:40 Last Admin: 01/24/23 16:47 Dose: 40 mg Documented By: SUJEY Vital Signs Vital signs: Vital Signs - 8 hr 01/24/23 15:28 Temperature 97.9 F Pulse Rate 66 Respiratory Rate 18 Blood Pressure 158/82 H Pulse Oximetry 98 Oxygen Delivery Method Room Air MDM - Back Pain/Injury <CONCETTA Araujo - Last Filed: 01/24/23 16:52> Imaging Data lumbar XR: Radiologist's Impression: PROCEDURE:? XR LUMBAR SPINE 2-3V ? INDICATIONS:? pain ? TECHNIQUE:? 3 views of the lumbar spine were acquired.? ? COMPARISON:? [facility], CR, XR LUMBAR SPINE 2-3V, 08/03/2022, 9:31. ? FINDINGS:? ? Bones:? 5 [id number] vertebrae are present.? Slight rightward curvature centered at L4.? Posterior and interbody surgical fusion L3 through L5, without hardware complication.? Moderate disc height loss at L2-3. ? Soft tissues:? Overlying bowel gas pattern is normal.? No suspicious soft tissue calcifications.? ? ? IMPRESSION:? Posterior surgical fusion at L3 through L5, without hardware complication.? ? No acute abnormality otherwise.? ? Dictated by: Peter Oerllana M.D. on 01/24/2023 at 16:09 ? ? Approved by: Peter Orellana M.D. on 01/24/2023 at 16:10 ? MDM Narrative Medical decision making narrative: Chief Complaint: low back pain Differential diagnoses considered but not limited to: disc injury/herniation, radiculopathy, muscular sprain, chronic pain, malignancy, spondyloarthropathy, nerve compression, acute fracture, urinary tract infection, osteoarthritis, degenerative disc disease, cauda equina, osteomyelitis, epidural abscess, spinal stenosis, ligamental injury, hardware problem/failure I have reviewed the patient's vital signs and nursing notes as well as prior records if available. Prior Charts reviewed: Yes My interpretation of Imaging: Lumbar spine x-ray without hardware abnormality or evidence of acute fracture Course of care: Suspect likely musculoskeletal etiology and acute exacerbation of chronic low back pain, x-ray does not show any acute changes to his lumbar spine or hardware. Patient's straight leg raise test was positive bilaterally. No back pain red flags on history or physical. No history of IV substance use, or bony tenderness to palpation, no bony tenderness to palpation, and is afebrile. No bowel or urinary incontinence or retention, no saddle anesthesia, no new/worsening distal weakness, decreased reflexes or foot drop. Pt is nontoxic appearing. Patient has soft tissue tenderness to palpation. Pt is neurovascularly intact distally, without decreased reflexes or strength, and without immunosuppression or evidence of infection, peritoneal signs, hypertensive crisis, incontinence, or meningeal signs. Patient's symptoms improved over duration of stay with above-stated therapies. Recommend patient follow-up with his PCP, surgeon and will treat for radiculopathy flare with prednisone, hydrocodone, methocarbamol, lidocaine patches, and NSAIDs Discharge diagnosis, return precautions and plan discussed with patient followed by verbalization of understanding. Patient has a referral to physical therapy already, will follow-up with them and his PCP/surgeon. Social considerations that may affect disposition: none Questions are addressed and there is agreement with the plan and for follow-up w ith PCP and with Orthopedics for outpatient physical therapy and advanced imaging if indicated. Patient is appropriate for outpatient management. MIPS: This encounter doesn't have any diagnosis' associated with MIPS criteria. Discharge Plan Departure Patient Disposition: Home Clinical Impression: History of lumbar surgery Strain of lumbar region Qualifiers: Encounter type: initial encounter Qualified Code(s): S39.012A - Strain of muscle, fascia and tendon of lower back, initial encounter Fall Qualifiers: Encounter type: initial encounter Qualified Code(s): W19.XXXA - Unspecified fall, initial encounter Acute low back pain with bilateral sciatica Qualifiers: Back pain laterality: bilateral Qualified Code(s): M54.42 - Lumbago with sciatica, left side Instructions: DI for Back Pain With Sciatica Activity Restrictions/Additional Instructions: *You have been diagnosed with a fall causing worsening low back pain and bilateral sciatica. I am sorry for this. The hardware on your x-ray looks great. Please follow-up with your primary care provider and let them know that you fell today, follow-up with physical therapy, please let them know that you fell and are having pain. Please finish the steroid and take all of your medications with food and water. Please take a stool softener with the Vicodin because constipation with low back pain can be very painful. Use ibuprofen 600 mg every 6 hours with food and water, hydrocodone every 6-8 hours as needed, methocarbamol, a muscle relaxer every 8 hours as needed for muscle spasm. Lidocaine patches every 12 hours to take the edge off. I hope you feel better soon, follow-up with your providers and physical therapy. I hope you feel better soon *What to do: *Please continue to take your regular medications as directed. [x ] New medication prescriptions sent to your pharmacy: [[facility] ] [ ] New medication written as a paper prescription [ ] No new medications given *Please call and schedule follow up with your primary care provider in 2-3 days, at least for an update. Let them know you were seen in the Emergency Department for the above problem. We will electronically transmit a record of today's note if your PCP or specialist is in our system. *If you do not have a primary care provider please contact [phone] to establish care with one of the primary care providers. *Return to the Emergency Department for worsening symptoms, inability to keep liquids down, fever greater than 101F, chills, or other concerning symptom. Prescriptions: New methocarbamol 500 mg tablet 500 mg PO TID PRN (Reason: muscle spasm) Qty: 30 0RF prednisone 20 mg tablet 40 mg PO DAILY 5 Days Qty: 8 0RF Rx Instructions: Take 40 mg for 3 days and then take 20 mg for the last 2 days lidocaine [Lidoderm] 5 % adhesive patch,medicated 1 patch topical DAILY PRN (Reason: back pain) Qty: 30 0RF Rx Instructions: leave on most painful area for up to 12 hrs ibuprofen 600 mg tablet 600 mg PO Q6-8H PRN (Reason: fever or pain) Qty: 30 0RF Rx Instructions: Take with food and water hydrocodone-acetaminophen 5-325 mg tablet 1 tab PO TID PRN (Reason: pain) Qty: 14 0RF No Action infliximab [Remicade] 100 MG recon soln See Rx Instructions .ROUTE .COMPLEX Qty: 0 Rx Instructions: 100 mg intravenously q 5 weeks lisinopril 20 mg Tablet 10 mg PO DAILY acetaminophen 325 mg Tablet 650 mg PO Q6HR Qty: 240 0RF docusate sodium 100 mg Capsule 100 mg PO BID PRN (Reason: constipation) Qty: 60 1RF hydromorphone 2 mg Tablet 2 mg PO Q6H PRN (Reason: Pain, Severe (7-10)) Qty: 7 0RF Rx Instructions: Take ONLY if you have taken full amt of Tylenol, methocarbamol, and oxy and are still having pain oxycodone 5 mg Tablet 5 mg PO Q4H PRN (Reason: Pain, Moderate (4-6)) Qty: 60 0RF Rx Instructions: May take 1-2 tabs (5-10mg) q 4 hrs PRN moderate to severe pain methocarbamol 750 mg tablet 750 mg PO Q8H PRN (Reason: muscle spasm) Qty: 30 0RF Rx Instructions: will make you drowsy lidocaine [Lidoderm] 5 % adhesive patch,medicated 1 patch topical DAILY PRN (Reason: pain) Qty: 15 0RF Rx Instructions: leave on most painful area for up to 12 hrs hydrocodone-acetaminophen 5-325 mg tablet 1 tab PO TID PRN (Reason: pain) Qty: 20 0RF Referrals: Jasbir George MD [Primary Care Provider] - Mona Frances MD [Physician] - Stand Alone Forms: Patient Portal/API <Derick Valles MD - Last Filed: 01/27/23 12:44> [facility] I was immediately available in the department for consultation. This documentation has been reviewed and I agree with assessment and plan. Supervised by Derick Valles MD
[2023-01-24] MEDS: KETOROLAC 30 MG/ML VIAL IM (16:45)
[2023-01-24] MEDS: LIDOCAINE PATCH 1 EACH ADH..PATCH TOP (16:45)
[2023-01-24] MEDS: HYDROCODONE/ACET 5/325 TABLET 1 TAB PO (16:45)
[2023-01-24] MEDS: methocarbamoL 500 MG TABLET PO (16:45)
[2023-01-24] MEDS: predniSONE 20 MG TABLET 40 MG PO (16:47)
[2023-01-24 16:51] VITALS: BP 172/97; PULSE 56; RESP 18; O2SAT 99
== END 2023-01-24 17:07 | disposition home or self-care (01) ==
PROVIDERS: Emergency Provider Nurse Practitioner Critical Care Medicine; PCP Family Medicine
DX: S39.012A Strain of muscle, fascia and tendon of lower back, initial encounter (principal); M54.42 Lumbago with sciatica, left side; Z79.899 Other long term (current) drug therapy; W18.30XA Fall on same level, unspecified, initial encounter
CPT/HCPCS: 72100; 96372; 99283; J1885

== ENCOUNTER → 2023-02-02 10:33 | Outpatient (CLI) | payer MEDICARE, OTHER, SELFPAY ==
[2022-08-03 13:12] VITALS: BMI 30.6
--- NOTE | 2023-02-02 10:37 | DI.CT.S_ITS ---
PROCEDURE: CT LUMBAR SPINE WO CON INDICATIONS: Spinal stenosis, lumbar region TECHNIQUE: Noncontrast 3 mm thick sections acquired from the T12 level to the sacrum. Sagittal and coronal reformats were constructed. For radiation dose reduction, the following was used: automated exposure control. COMPARISON: [facility], CT, CT LUMBAR SPINE WO CON, 06/27/2022, 10:57. FINDINGS: Image quality: Excellent. Bones: Patient is status post posterior fusion at L3 through L5 levels with transpedicular fusion hardware in place and intervertebral spacers noted at L3-4 and L4-5 levels. Mild straightening of normal lumbar lordosis is seen. No acute vertebral body compression fractures. No suspicious lytic or blastic bony lesions. No pars defects. No gross hardware loosening or failure. T12-L1: Degenerative endplate changes are seen and loss of disc height. No significant disc bulge, canal stenosis or neural foraminal narrowing. L1-L2: Degenerative endplate changes are noted. No significant disc bulge, canal stenosis or neural foraminal narrowing. L2-L3: There is loss of disc height. Degenerative endplate changes are seen. Diffuse disc bulge and bilateral facet arthrosis is noted with mild central canal stenosis and right-sided neural foraminal narrowing. L3-L4: Post left laminectomy changes are noted. Significant beam hardening artifacts are seen from surgical hardware. Bilateral facet arthrosis is seen. No significant canal stenosis or neural foraminal narrowing. L4-L5: Postsurgical changes are noted from left-sided laminectomy. Significant beam hardening artifacts are seen. There is bilateral facet arthrosis. No significant canal stenosis or neural foraminal narrowing. L5-S1: Degenerative endplate changes are seen. Broad-based disc bulge and bilateral facet arthrosis is noted causing mild central canal stenosis and left-sided neural foraminal narrowing. Soft tissues: No retroperitoneal masses or hematomas. Visualized aorta is normal in caliber. IMPRESSION: 1. Patient is status post posterior fusion and left laminectomy at L3-4 and L4-5 levels. Straightening of normal lumbar lordosis. No acute compression fracture or spondylolisthesis. No gross hardware loosening or failure. 2. Degenerative disc bulge and bilateral facet arthrosis at L2-3 and L5-S1 levels causing mild central canal stenosis and bilateral neural foraminal narrowing as above. Dictated by: Carlos Salmeron M.D. on 02/02/2023 at 17:08 Approved by: Carlos Salmeron M.D. on 02/02/2023 at 17:21
== END ==
PROVIDERS: PCP Family Medicine; Referring Provider Orthopaedic Surgery; Visit Provider Orthopaedic Surgery
DX: M48.062 Spinal stenosis, lumbar region with neurogenic claudication (principal); M48.07 Spinal stenosis, lumbosacral region; M51.36 Other intervertebral disc degeneration, lumbar region; M51.37 Other intervertebral disc degeneration, lumbosacral region; M47.816 Spondylosis without myelopathy or radiculopathy, lumbar region; M47.817 Spondylosis without myelopathy or radiculopathy, lumbosacral region; Z98.1 Arthrodesis status
CPT/HCPCS: 72131

== ENCOUNTER 2023-05-07 06:11 | Inpatient (IN) | payer MEDICARE, OTHER, SELFPAY ==
[2022-08-03 13:12] VITALS: BMI 30.6
[2023-05-02 10:20] VITALS: BMI 27.4
[2023-05-07] VITALS (15 sets, daily range): BP systolic 106–151; BP diastolic 61–96; PULSE 49–64; RESP 12–21; TEMP 36.1–36.8; O2SAT 92–100; BMI 27.4
--- NOTE | 2023-05-07 07:42 | PM.PREOP ---
Pre-operative Note COVID-19 Criteria for continued procedure: Expected advancement of disease process, Possibility delay results in more complex future surgery or treatment, Increased loss of function, Continuing or worsening of significant or severe pain, Deterioration of the patient's condition or overall health and Delay expected to result in less-positive ultimate med/surg outcome Interval Note History & Physical reviewed/Exam performed by Physician: Yes Changes to H&P: No
[2023-05-07] MEDS: CEFAZOLIN 2 GM/100 ML PREMIX 100 ML IV ×3 (08:00→23:14)
[2023-05-07] MEDS: BUPIVACAINE 0.25% (PF) 30 ML, EPINEPHrine 0.15 MG INJ (08:26)
[2023-05-07] MEDS: BUPIVACAINE LIPOSOME 266 MG/20 ML VIAL INJ (08:26)
[2023-05-07] MEDS: LACTATED RINGERS 1,000 ML 42 ML IV ×2 (08:49→10:34)
--- NOTE | 2023-05-07 10:33 | DI.RAD.S_ITS ---
PROCEDURE: XR LUMBAR SPINE 2-3V INDICATIONS: L5-S1 TLIF WITH HARDWARE REPLACEMENT TECHNIQUE: 2 spot fluoroscopic intraoperative images of the lumbar spine were acquired. COMPARISON: [facility], MANJIT, XR LUMBAR SPINE 2-3V, 01/24/2023, 15:41. [facility], CR, XR LUMBAR SPINE 2-3V, 08/03/2022, 9:31. FINDINGS: Fluoroscopic images of the lower lumbar spine demonstrate changes from posterior fixation at L3 through S1 with bilateral pedicle screws, interbody rods, and disc spacers. Postsurgical changes at L5-S1 are new when compared to the radiographs from 01/24/2023. IMPRESSION: Postsurgical changes from spinal fusion at L3 through S1. Approved by: Haile Hester M.D. on 05/07/2023 at 11:16
--- NOTE | 2023-05-07 10:55 | PM.OP.1 ---
Operative Date/Time/Diagnoses Date of procedure: 05/07/23 Time of procedure: 07:40 Pre-op diagnosis: 1. L5-S1 spinal stenosis 2. Epidural lipomatosis 3. History of L3-5 fusion with hardware loosening Post-op diagnosis: same Procedure & Clinicians Procedure: 1. L5-S1 posterolateral and posterior interbody fusion 2. L5-S1 posterior interbody cage placement 3. L3-5 posterior segmental instrumentation removal 4. L3-4, L4-5 revision laminectomy with exploration of fusion 5. L3-4, L4-5, L5-S1 posterior segmental instrumentation with pedicle screw placement 6. L4-5 posterolatearl fusion 7. Eleanor of bone marrow from iliac crest through a separate incision 8. Utilization of microsurgical technique and operating microscope Same procedure as scheduled: Yes Indications: Patient has been having chronic back pain and worsening lumbar radiculopathy. Patient had previous lumbar fusion surgery with interval symptomatic relief. Patient has been having progressively worsening pain not responding to conservative care with limitation perform activities of daily living. After discussing risks benefits of treatment options, patient elected proceed with surgery. Surgeon: Mona Frances Bearing Ring Assembler: Clary Novak Click Yes if Unassisted: No Anesthesia Type: General Operative Notes Closure Type: primary Specimen(s): none sent Prosthetic devices, grafts, tissues, transplants, or devices: Globus revolve screws, Rise cages Applied: catheter Estimated Blood Loss (mL): 100 Blood products transfused: none Procedure in detail: Patient was seen in the preoperative area. Risks and benefits of the surgery was discussed with the patient. Informed consent was obtained from the patient and placed in the chart. Surgical site was marked. Patient was taken to the operative room. General anesthesia was administered. Prophylactic antibiotic was given to the patient less than 30 min before the incision was made. Patient was placed into a prone position on the Alvino table. Patient's back was then prepped and draped in the sterile fashion. Time-out was performed at this time. Using patient's previous scar incision was made over the L3-4 L4-5 L5-S1 interval on the right side. Fascia was incised in line with skin incision. Patient's previously placed hardware over the L3-5 level was identified by dissecting down to the level the hardware using a Bovie and a Verma. The locking caps which was removed using Ticketbisiv screwdriver. The locking lisbeth was then removed from the tulips of the pedicle screws using a Pastora. The pedicle screws were then removed using the screwdriver. All screws were solid except the left L5 screw which was found to be loose. The Globus and MARS retractors was then placed into the wound and docked onto the L5 lamina using C-arm guidance. Using microsurgical technique and operating microscope a laminectomy facetectomy was performed by removing the L5 lamina and the L5-S1 facet. The laminectomy and facetectomy was performed in order to decompress patient's cauda equina as well as the nerve roots exiting at the L5-S1 level. Patient was found to have significant amount of epidural lipomatosis which was contributing to patient's spinal stenosis at this level. The lipomatosis was carefully resected from the epidural space to fully decompress the L5-S1 level. The disc space at L5-S1 level was identified next. And a total diskectomy was performed at L5-S1 level. The endplates were decorticated using a rasp and shaver. The total diskectomy and decortication was performed at L5-S1 level in order to to accomplish a L5-S1 fusion. The local bone from the laminectomy and facetectomy was saved for local bone grafting. After the total diskectomy and decortication was completed, Trifecta bone graft material was combined with local bone that was harvested earlier along with DBM bone graft. At this time, a separate skin is incision was made over the iliac crest. A Jamshidi needle was inserted into the iliac crest through a separate skin incision. 5 cc of bone marrow aspiration was obtained through the separate skin incision using a Jamshidi needle from the iliac crest. The bone marrow aspiration was combined with local bone and the Trifecta bone grafting material. The bone grafting material was placed into the L5-S1 interbody space along with a expandable cage. The cage was expanded to its maximum height using the torque limiting screwdriver. At this time a mirror image incision was made on the left side. The fascia was incised in line with the skin incision. Patient's previously placed hardware on the right side was then removed in the same fashion as it was on the left side. The hardware was also found to be loose indicating pseudoarthrosis. The fusion mass on the right side was exposed by performing a right-sided hemilaminectomy at L3-4, L4-5 level. The hemilaminectomy was performed using the Kerrison rongeur to undercut the lamina at L3-4, L4-5 as well removing additional epidural scar tissue for purpose of decompressing the epidural space. The fusion mass was explored and was found have visible motion indicating pseudoarthrosis at L4-5 level. The fusion was found to be solid at L3-4 level. Globus MARS retractor was inserted and docked onto the L4-5 L5-S1 posterolateral gutter. Using the power drill, posterior-lateral decortication was performed at L4-5 L5-S1 level until bleeding cortical bone was identified. The remaining bone grafting material was placed into the L4-5 L5-S1 posterior lateral gutter he order to accomplish posterolateral fusion at the L4-5 L5-S1 level. Using the double C-arm technique, pedicle screws were placed into the L3, L4-L5 and S1 pedicles bilaterally. This was done by placing the Jamshidi needle into the pedicles, then placing the guidewires over the Jamshidi needle, and finally placing the cannulated screws over the guidewires bilaterally. After the pedicle screws were placed, 2 titanium rods was locked into the heads of the pedicle screws using locking caps and torque limiting screwdriver. Pedicle screws were increased in diameter by 1 mm at left L5 pedicle screw due to the previously loose purchase. All new pedicle screws has good purchase. After all the hardware was placed, and confirmed with AP and lateral C-arm imaging, the wound was then irrigated with sterile normal saline and packed with Ray-Brian gauze for 3 min to accomplish hemostasis. After the gauze was removed the deep fascia was closed with #1 Vicryl suture. The subcutaneous layer was closed with 2-0 Vicryl. The skin was closed with skin kym. Patient tolerated the procedure well. There were no complications. Neuro monitoring was performed throughout the procedure which was stable throughout the procedure. Complications: none Post-operative Condition: stable Disposition: PACU Plan for aftercare: Admit to inpatient hospital
[2023-05-07] MEDS: HYDROMORPHONE 1 MG INJ IV ×2 (11:41→11:51)
[2023-05-07] MEDS: OXYCODONE IR 5 MG TABLET PO (11:43)
[2023-05-07] MEDS: ACETAMINOPHEN 325 MG TABLET 650 MG PO (11:54)
[2023-05-07] MEDS: hydrOXYzine pamoate 25 MG CAPSULE 50 MG PO (11:54)
--- NOTE | 2023-05-07 14:29 | PC.NURSE ---
Patient was brought up to room 208 from PACU approximately 1230pm. Oriented to room and call light. Patient is sleepy, able to follow commands and responds with short soft spoken answers. VSS. IV fluids as ordered. SCD's in place. Tim intact and draining clear yellow urine. Patient able to move all extremities. Call light within reach. Continue to monitor.
[2023-05-07] MEDS: LACTATED RINGERS 1,000 ML 125 ML IV (16:19)
[2023-05-07] MEDS: OXYCODONE IR 10 MG TABLET PO ×2 (16:33→21:38)
[2023-05-07] MEDS: SENNOSIDES 8.6 MG TABLET 17.2 MG PO (21:38)
[2023-05-07] MEDS: DOCUSATE 100 MG CAPSULE PO (21:38)
[2023-05-08] MEDS: OXYCODONE IR 10 MG TABLET PO ×5 (00:16→21:27)
[2023-05-08] MEDS: LACTATED RINGERS 1,000 ML 125 ML IV (01:31)
[2023-05-08 03:45] VITALS: BP 97/59; PULSE 59; RESP 18; TEMP 36.6; O2SAT 98
[2023-05-08] MEDS: DOCUSATE 100 MG CAPSULE PO ×2 (07:38→21:15)
--- NOTE | 2023-05-08 07:40 | P.PN_ITS ---
Subjective Subjective Date Patient Seen: 05/08/23 Time Patient Seen: 07:41 Interval history: Pain is [id number]. Denies fever or chills. No nausea /vomiting. Exam Vital Signs (past 8 hours): - 05/08/23 03:45 Temperature 97.8 F Pulse Rate 59 L Respiratory Rate 18 Blood Pressure 97/59 L Pulse Oximetry 98 Oxygen Flow Rate 0 Oxygen Delivery Method Room Air Oxygen Flow Rate 0 Narrative Exam Narrative: 63-year-old male resting comfortably in bed in no apparent distress. Motor functions intact bilateral lower extremities. Sensation grossly intact to light touch bilateral lower extremities Const General: cooperative and comfortable Nutritional Appearance: average body habitus Orientation: alert Resp Effort & Inspection: normal respiratory effort and able to speak in complete sentences [facility] Medical History Ankylosing spondylitis Anxiety Diverticulitis HTN (hypertension) Osteoarthritis Rheumatoid arthritis Sciatica Surgical History History of appendectomy History of bilateral total hip arthroplasty History of inguinal hernia repair, bilateral Hx of umbilical hernia repair (06/22/20) Social History marital status: unknown household members: children occupational status: previously employed Smoking Status: Current every day smoker alcohol intake: current substance use type: does not use Assessment & Plan Post-op Postoperative Procedures: Procedures Operation Date: 05/07/23 07:45 Actual Procedure Side Surgeon p L5-S1 TLIF, L3-S1 posterior instrumentation Mona Frances MD Postoperative day: 1 Postoperative status: doing well Postoperative plan: routine post-op care Postoperative plan narrative: Disposition likely after physical therapy today if safe for home environment Quality VTE Deep Vein Thrombosis/Pulmonary Embolism Present on Admission: No
[2023-05-08 08:00] VITALS: BP 109/55; PULSE 50; RESP 17; TEMP 36.6; O2SAT 96
[2023-05-08] MEDS: MELOXICAM 7.5 MG TABLET 15 MG PO (08:21)
[2023-05-08] MEDS: ACETAMINOPHEN 325 MG TABLET 650 MG PO ×2 (10:23→17:33)
--- NOTE | 2023-05-08 11:25 | PT.IIE ---
Current Diagnoses Spondylosis without myelopathy or radiculopathy, lumbar region (05/07/23) Arthrodesis status (05/07/23) Surgery Performed Operation Date: 05/07/23 07:45 Actual Procedures p L5-S1 TLIF, L3-S1 posterior instrumentation - Mona Frances MD Surgical History (Last Reviewed 05/08/23 @ 07:41 by Diego Lee PA-C) History of appendectomy History of bilateral total hip arthroplasty History of inguinal hernia repair, bilateral Hx of umbilical hernia repair (06/22/20) Medical History (Last Reviewed 05/08/23 @ 07:41 by Diego Lee PA-C) Ankylosing spondylitis Anxiety Diverticulitis HTN (hypertension) Osteoarthritis Rheumatoid arthritis Sciatica Physical Therapy Inpatient Evaluation/Re-Eval M1 PT/OT-IP Prior Functional Status Start: 05/08/23 13:59 Freq: NEEDED Status: Active Protocol: Document 05/08/23 14:12 AB (Rec: 05/08/23 14:35 AB [id number]) Medical Review Prior Functional Status Medical History Reviewed Yes Communication Pt is able to communicate all needs. Mobility and Gait Pt reports he uses SPC at baseline. Activities of Daily Living and IADL's IND with all ADLs Social History Household Members children Living Arrangements House Number of Floors (Floors) One Floor Number of Stairs To Enter/Railing? 3 ALLAN with left hand rail Home Environment Standard Height Toilet,Walk in Shower,Built-In Shower Seat Home Equipment Front Wheel Walker,Straight Cane,Hand Held Shower Additional Social History Comment Pt's daughter lives with him, but works 3x/week, however he states his ex- can also assist him. M1 PT/OT-IP Prior Functional Status Start: 05/08/23 14:10 Freq: NEEDED Status: Active Protocol: Document 05/08/23 14:12 AB (Rec: 05/08/23 14:35 AB [id number]) Medical Review Prior Functional Status Medical History Reviewed Yes Communication Pt is able to communicate all needs. Mobility and Gait Pt reports he uses SPC at baseline. Activities of Daily Living and IADL's IND with all ADLs Social History Household Members children Living Arrangements House Number of Floors (Floors) One Floor Number of Stairs To Enter/Railing? 3 ALLAN with left hand rail Home Environment Standard Height Toilet,Walk in Shower,Built-In Shower Seat Home Equipment Front Wheel Walker,Straight Cane,Hand Held Shower Additional Social History Comment Pt's daughter lives with him, but works 3x/week, however he states his ex- can also assist him. M2 PT-IP Current Condition Start: 05/08/23 14:10 Freq: NEEDED Status: Active Protocol: Document 05/08/23 14:12 AB (Rec: 05/08/23 14:35 AB [id number]) Physical Therapy Current Condition Current Condition Evaluation Date 05/08/23 Treatment Diagnosis s/p lumbar TLIF Onset Date 05/07/23 M3 PT-IP Subjective Start: 05/08/23 14:10 Freq: NEEDED Status: Active Protocol: Document 05/08/23 14:12 AB (Rec: 05/08/23 14:35 AB [id number]) Subjective Physical Therapy Visit Type Type Initial Evaluation Visit Start Time 11:25 Visit Stop Time 11:48 Total Visit Minutes 23 Notes Pt presents supine in bed asleep, but is agreeable to PT eval along with OT eval upon introduction. Physical Therapy Visit Comments Patient Comments Pt reports his pain is much better than earlier this morning. Therapy Pain Assessment Pain When Pain Assessed At Rest Pain Present Pain Present Pain Reported Location back Intensity 4 M4 PT-IP Mobility and Gait Start: 05/08/23 14:10 Freq: NEEDED Status: Active Protocol: Document 05/08/23 14:12 AB (Rec: 05/08/23 14:35 AB [id number]) PT-Bed Mobility Assessment Rolling Level of Assist Maximal Assistance,1 Person Assistance Supine to Sit Supine to Sit Maximum Assistance,1 Person Assistance Sit to Supine Sit to Supine Maximum Assistance,1 Person Assistance Scooting Scooting to Edge of Bed Standby Assistance Scooting Up and Down in Bed Standby Assistance PT-Transfer Assessment Sit to and From Stand Sit to and from Stand Moderate Assistance,1 Person Assistance Equipment Transfer Assistive Device Gait Belt,Front Wheeled Walker Transfers Transfer Destination Chair Transfer Technique Stand Step Pivot Transfer Ability Level of Assist Moderate Assistance,1 Person Assistance Comments Mobility Comments Pt requires modA to guide FWW when performing STS and transfer, as well as verbal cues for hand placement and sequencing. Gait Assessment Comments Gait Comments Not assessed due to fatigue/ weakness. Stair Climbing Assessment Comments Stair Climbing Comments Not assessed due to fatigue/ weakness. PT-Balance Assessment Sitting Balance and Reactions Static Sitting Balance Ability Good Dynamic Sitting Balance Ability Fair Standing Balance and Reactions Static Standing Balance Ability Fair Dynamic Standing Balance Ability Poor Device Used FWW M5 PT-IP Objective Assessments Start: 05/08/23 14:10 Freq: NEEDED Status: Active Protocol: Document 05/08/23 14:12 AB (Rec: 05/08/23 14:35 AB [id number]) Orientation Orientation/Cognition Level of Alertness Lethargic Orientation Name,Place,Situation Language Function Ability No Deficits Noted Safety Awareness Understands Safety Issues Memory Description No Deficits Noted Gross Range of Motion Upper Extremity ROM Assessment Within Functional Limits Lower Extremity ROM Assessment Within Functional Limits Strength Upper Extremity Strength Assessment Within Functional Limits Lower Extremity Strength Assessment Bilaterally Impaired M6 PT-IP Treatment Start: 05/08/23 14:10 Freq: NEEDED Status: Active Protocol: Document 05/08/23 14:12 AB (Rec: 05/08/23 14:35 AB [id number]) Physical Therapy Treatment Education Education Provided Precautions,Post-Op Packet, Safety Brace Education Patient Other Treatments Other Treatment Performed Pt's BP in sitting is 136/72 mmHg with complaints of lightheadedness upon sitting at EOB. The symptoms resolved and pt is able to perform STS, with reports of lightheadedness and BP of 121/ 73 mmHg. The pt then transferred to chair, but requires assistance with guiding FWW and verbal cues for sequencing. At end of session, the pt is in chair with all needs met and call light placed within reach. M7 PT-IP Assessment and Plan Start: 05/08/23 14:10 Freq: NEEDED Status: Active Protocol: Document 05/08/23 14:12 AB (Rec: 05/08/23 14:35 AB [id number]) PT Summary Assessment and Plan Potential Rehabilitation Potential Fair Status of Condition at Evaluation Stable Summary Impairments Pain,Strength,Bed Mobility, Transfers,Gait,Activity Tolerance Assessment Summary Moose Huynh is a 63 year old male patient who is s/p lumbar TLIF of L3-L4, L4-L5 performed on 05/07/23, and of note, has a history of this procedure. Today's PT evaluation revealed LE weakness and balance deficits which are limiting his level of function. The pt requires maxA x1 to perform bed mobility, including verbal and tactile cues for proper log roll technique, and modA x1 for STS and transfer using FWW . Ambulation and stairs were not attempted this session due to his deficits. Based on his current level of function, PT recommends discharge to SNF in order to improve these deficits in order to increase his level of independence. The pt would benefit from skilled PT intervention during the course of his hospitalization in order to help him improve to his highest level of function. Goals Bed Mobility Goal Standby Assistance Transfer Goal Standby Assistance,Front Wheeled Walker Gait Goal Standby Assistance,Front Wheel Walker Gait Distance 50 Other Goals Pt to be able to ascend/ descend 3 steps with 1 hand rail to show improving strength and endurance in order to return to home safely . Days to Meet Goals 5 Frequency of Treatment Frequency Of Treatment Twice a Day Treatment Plan Physical Therapy Treatment Plan Bed Mobility Training,Transfer Training,Gait Training, Therapeutic Exercise,Balance Retraining,Post Op Education, Discharge Planning,Hot or Cold Pack,Neuromuscular Re-ed, Coordination Retraining,Manual Therapy Precautions Lumbar Precautions Log Roll,No Twisting,Limit Bending,Lifting Restriction of 10 lbs,Gait Belt above Incisional Area Weight Bearing Status Weight Bearing Status Weight Bear as Tolerated Recommendations To Nursing Amount of Assist Needed 2 Person Assist Discharge Recommendations PT Discharge Recommendations SNF Rehab Transportation Needs at Discharge Private Vehicle,Wheelchair/ Cabulance
--- NOTE | 2023-05-08 11:49 | OT.IP.EVAL ---
Current Diagnoses Spondylosis without myelopathy or radiculopathy, lumbar region (05/07/23) Arthrodesis status (05/07/23) Surgery Performed Operation Date: 05/07/23 07:45 Actual Procedures p L5-S1 TLIF, L3-S1 posterior instrumentation - Mona Frances MD Past Medical History (Last Reviewed 05/08/23 @ 07:41 by Diego Lee PA-C) Ankylosing spondylitis Anxiety Diverticulitis HTN (hypertension) Osteoarthritis Rheumatoid arthritis Sciatica Surgical History (Last Reviewed 05/08/23 @ 07:41 by Diego Lee PA-C) History of appendectomy History of bilateral total hip arthroplasty History of inguinal hernia repair, bilateral Hx of umbilical hernia repair (06/22/20) Occupational Therapy Inpatient Evaluation/Re-Eval M1 PT/OT-IP Prior Functional Status Start: 05/08/23 13:59 Freq: NEEDED Status: Active Protocol: Document 05/08/23 11:25 [facility] (Rec: 05/08/23 14:15 [facility] [id number]) Medical Review Prior Functional Status Communication Independent but pt is very soft spoken. Mobility and Gait Pt uses a SPC at home. Activities of Daily Living and IADL's Pt uses slip on shoes and states prior able to do all his ADL needs on his own. Prior Functional Level (Other details) Pt lives with his daughter that works 3x/week. Social History Household Members children Living Arrangements House Number of Floors (Floors) One Floor Number of Stairs To Enter/Railing? 3 steps with left rail to enter Home Environment Standard Height Toilet,Walk in Shower Home Equipment Four Wheel Walker,Straight Cane,Hand Held Shower Additional Social History Comment Pt states has a built in shower chair. M2 OT-IP Current Condition Start: 05/08/23 13:59 Freq: Status: Active Protocol: Document 05/08/23 11:25 [facility] (Rec: 05/08/23 14:15 [facility] [id number]) Occupational Therapy Current Condition Current Condition Evaluation Date 05/08/23 Treatment Diagnosis S/P L5-S1 TLIF, L3-S1 posterior inst. Diagnosis Onset Date 05/07/23 Post Operative Precautions Lumbar Precautions Log Roll,No Twisting,Limit Bending,Lifting Restriction of 10 lbs,Gait Belt above Incisional Area M3 OT- IP Subjective and Pain Start: 05/08/23 13:59 Freq: Status: Active Protocol: Document 05/08/23 11:25 [facility] (Rec: 05/08/23 14:15 [facility] [id number]) OT- Subjective Occupational Therapy Visit Type Type Initial Evaluation Visit Start Time 11:25 Visit Stop Time 11:49 Total Visit Minutes 30 Notes Pt seen prior and awaiting pain medications to kick in and able to get prior level and home set-up from the pt. Occupational Therapy Visit Comments Patient Comments Pt agreed to get up. Patient/Caregiver Goals To go to skilled rehab. OT Pain Assessment Pain When Pain Assessed At Rest Pain Present Pain Present Pain Reported Location back Intensity 5 Scale Used Numeric (0 - 10) M4 OT- IP ADL's Start: 05/08/23 13:59 Freq: Status: Active Protocol: Document 05/08/23 11:25 [facility] (Rec: 05/08/23 14:15 [facility] [id number]) OT [id number] Comments OT Self-Feeding Comments Not at meal time. OT ADL-Grooming Comments OT Grooming Comments Pt not wanting to do at this time. OT ADL-Oral Care Comments Oral Care Comments Not performed. OT ADL-Dressing General Eval Lower Body Dressing Ability Maximum Assistance Areas Needing Assistance Socks Comments OT Dressing Comments Pt states just wears slip on shoes. OT ADL-Toileting General Evaluation Toileting Ability Total Assistance Comments OT Toileting Comments Pt having son in place. OT ADL-Bathing Comments OT Bathing Comments Not performed. Pt may benefit from a shower chair at home pending how high the built in seat is at home. M5 OT- IP IADL's Start: 05/08/23 13:59 Freq: Status: Active Protocol: Document 05/08/23 11:25 [facility] (Rec: 05/08/23 14:15 [facility] [id number]) OT-Instrumental Activities of Daily Living Deficits IADL Deficits Identified Deficits Home Safety Awareness Awareness of Need for Assistance at Home Good Awareness Home Safety Comments Pt able to recall his 2/3 back precautions. Meal Preparation Meal Preparation Caregiver Provides Assist Zoology Professor Zoology Professor Caregiver Provides Assist M6 OT- IP Functional Cognition Start: 05/08/23 13:59 Freq: Status: Active Protocol: Document 05/08/23 11:25 [facility] (Rec: 05/08/23 14:15 [facility] [id number]) Cognitive Factors Limiting Selfcare Function Cognitive Ability Level of Alertness Alert Patient Orientation Name,Place,Situation Attention Span Ability Capable of Focused Attention, Capable of Sustained Attention Ability to Follow Commands Able to Follow One Step Commands Safety Awareness Decreased Recall of Precautions Cognitive Comments Cognitive Assessment Comments At this time pt needing initial cue for his back precautions and vc to follow his log rolling. Pt able to follow commands for ADl and mobility needs. OT- Vision and Hearing OT- Hearing Assessment OT- Hearing Assessment WFL OT- Vision Assessment Visual Acuity Glasses For Reading M7 OT- IP Mobility and Balance Start: 05/08/23 13:59 Freq: Status: Active Protocol: Document 05/08/23 11:25 [facility] (Rec: 05/08/23 14:15 [facility] [id number]) OT- Bed Mobility Assessment Supine to Sit Supine to Sit Assist Maximum Assistance Scooting Scooting to Edge of Bed Standby Assistance OT-Transfer Assessment Sit to and From Stand Sit to and from Stand Moderate Assistance Transfers Transfer Ability Moderate Assistance Technique Transfer Destination Bed,Chair Comments Mobility Comments MAX AX 1 for log rolling and to get upright to the edge o the bed. BP sitting 136/72. MODA x1 to stand and BP 121/73 and pt feeling woozy. Able to transfer with increased time and assist for balance and to guide the FWW. OT- Balance Assessment Sitting Balance and Reactions Static Sitting Balance Ability Good Dynamic Sitting Balance Ability Fair Standing Balance and Reactions Static Standing Balance Ability Fair Dynamic Standing Balance Ability Poor M8 OT- IP Objective Assessments Start: 05/08/23 13:59 Freq: Status: Active Protocol: Document 05/08/23 11:25 [facility] (Rec: 05/08/23 14:15 [facility] [id number]) OT Gross Range of Motion Upper Extremity Range of Motion Assessment Within Functional Limits OT Strength Upper Extremity Strength Assessment Within Functional Limits OT-Muscle Tone Assessment Muscle Tone WNL Yes M9 OT- IP Assessment and Plan Start: 05/08/23 13:59 Freq: Status: Active Protocol: Document 05/08/23 11:25 [facility] (Rec: 05/08/23 14:15 [facility] [id number]) OT Summary Assessment and Plan Potential Rehabilitation Potential Good Analytic Complexity at Evaluation Low Summary OT Impairments Pain,Strength,Balance, Functional Mobility,Grooming, Dressing,Toileting,Bathing, Toilet Transfers,Shower Transfers,Activity Tolerance Progress Towards Goals Progressing Toward Goals Assessment Summary Pt low complexity and main barriers are pain, steps and needing MAXA X 1 for bed mobility needs and assist for ADL's. Pt would greatly benefit from skilled rehab as at this time. Pt did go to skilled rehab after his last back surgery in 08/03/22. Pt will benefit to go to skilled rehab. Goals Self-Feeding Goal Independent Grooming Goal Independent Dressing Goal Independent Toileting Goal Independent Bathing Goal Independent Toilet Transfer Goal Independent Shower Transfer Goal Independent Patient/Caregiver Education Goal Demonstrate Post-Op Precautions Days to Meet Goals 12 Frequency of Treatment Frequency Of Treatment Once a Day Treatment Plan OT Treatment Plan ADL Training,Functional Mobility,Patient/Family Education,Discharge Planning Other Treatment Recommendations and Next Practice use of LB dressing Treatment Focus equipment. Discharge Recommendations OT Discharge Recommendations SNF Rehab Transportation Needs at Discharge Wheelchair/Cabulance
[2023-05-08] MEDS: hydrOXYzine pamoate 25 MG CAPSULE PO ×2 (12:52→21:27)
--- NOTE | 2023-05-08 13:18 | CM.DANOTE ---
Initial DCP Assessment Note: COORDINATOR CARDIOPULMONARY SERVICES reviewed EMR and team rounds for medical status and anticipated d/c needs. Met with pt bedside, introduced self and role. Returned call to his dtr, Nicki, confirming that we received her message that [facility] is the facility choice for rehab post hospital d/c. Payer: 1) Medicare, 2) [facility] PCP: Ariel Surgeon: Dr. Frances Pt is a 63 year-old M admitted for total right hip replacement surgery, post-op day 1. Pt found to be alert, oriented, somewhat groggy. He expressed to this COORDINATOR CARDIOPULMONARY SERVICES that his preference for rehab facility is [facility], and requested that we initiate the referral. He does have a cane and front wheeled walker at home, dtr Nicki is primary contact and assists patient with all care coordination. PT/OT recommending SNIF, he currently is a 1-2 person assist. COORDINATOR CARDIOPULMONARY SERVICES initiated referral, clinicals were faxed to [facility], Izabella is reviewing. PASSAR is completed except for the d/c date. No further needs at this time of assessment, d/c planning will continue to monitor. Discharge Planning/Care Management CM Discharge Assessment Start: 05/08/23 13:13 Freq: Status: Active Protocol: Document 05/08/23 13:14 [facility] (Rec: 05/08/23 13:18 [facility] [id number]) Discharge Planning Assessment Assigned Lead Caster Helper TRISTEN Cee Advance Directives? No Advance Directives on File No History Provided By Patient,Medical Record Prior Living Arrangements House Household Members children Comment Daughter Nicki is primary contact: [phone] Type of transporation used prior to Drives own vehicle admit Independent with ADL's Yes Is patient alert and oriented? Yes Comment N/A Caregiver for Another No Comment N/A Comment Patient endorses he uses a cane at baseline and his daughter recently got him a FWW. Patient/Family Preference [facility] Facility Comment Pt/dtr preference is [facility]. Referral and clinicals were faxed today for their review. Barriers to Discharge No Discharge Plan [facility] Facility Transportation Arrangement Family Referrals Initiated [facility] If patient plan is SNF: Has PASSR been Yes completed? Inpatient Status as of 05/07/23 Comment PASSAR completed except for d/ c date from inpt. SNF/HH Preference Dtr and patient had already identified [facility] as rehab facility of choice prior to his surgery. Has Agency SNF been contacted Yes Comment Izabella from referrals is reviewing. Whiteboard Updated in Patient Room with Yes name and ext. # of Lead Caster Helper Review Status In Process Please Provide Date Initial DC 05/08/23 Assessment Was Performed Pre-Anesthesia Assessment Start: 05/02/23 10:20 Freq: Status: Active Protocol: Document 05/02/23 10:20 [place] (Rec: 05/02/23 10:40 AK [id number]) Pre-Anesthesia Assessment Patient Information Reviewed Via Phone Assessment Assessment Completed With Patient Diagnostic Results EKG Primary Care Provider Madhuri Mitchell Seen Specialist in Last 12 Months Yes Specialist Seen Orthopedist Preferred Language Panamanian Height 167.64 cm Weight 77.111 kg Body Mass Index (BMI) 27.4 Hearing Ability Normal Visual Impairment No Limitations Visual Assist None Dentition Type Teeth, Natural Present Hx Anesthesia Reactions No Hx Family Anesthesia Reaction No Hx Malignant Hyperthermia No Hx Blood Transfusions No Hx Blood Transfusion Reaction No Anesthesia Review Requested No Photographer Apprentice Lithographic No alcohol intake current alcohol intake frequency a few times a month Smoking Status Current every day smoker Tobacco type cigarettes Smoking packs per day 1 Substance Use Type does not use Pain Present Pain Reported Comment Back pain, low Musculoskeletal Symptoms Back Pain,Difficulty Walking History of Falling (Recent or History of Yes ) Patient is completely paralyzed or No completely immobile Ambulatory Aid Crutches/cane/walker Prosthesis or Orthotic Device Cane,Front Wheel Walker Gait/Transferring Weak Mental Status Oriented to own ability Is patient on oxygen? No Does patient have SILVERMAN/SOB Yes: reports due to smoking Hx Sleep Apnea No CPAP/BIPAP use not prescribed Currently Taking a Beta George No Can You Climb a Flight of Stairs Without Yes SOB Hx Chest Pain No Hx SOB Yes Hx Syncope or Dizziness Yes: Intermittent dizziness after last back surgery 2021 Anti-Coagulant Therapy No Has a Teacher Of The Deaf/Hard Of Hearing No Cardiac Testing No Hx Pacemaker/ICD No Pacemaker Rep Required? No Diet Type At Home Regular Dysphagia No Urinary Catheter Present No Hx Urinary Self Catheterization No Diabetes No HgbA1C 5.8 Date 04/17/23 Hx Drug Resistant Organism No Presence of External or Internal Medical Yes: Bilateral SHREYAS, mesh with Devices hernia repair, lumbar hardware Have you had any close contact with No someone diagnosed with COVID-19? Are you experiencing any of these No symptoms symptoms? Received a COVID vaccine? No Lives With children Current Living Arrangements House Number of Floors (Floors) One Floor Number of Stairs To Enter/Railing? none Support System Child/Children Does the Patient Have Assistance After Yes Surgery Patient Discharge Plan Description Return Home Feels Safe in Current Environment Yes Been Physically Hurt or Threatened By a No Person in Current Environment Do you have thoughts of harming yourself None or others? Are you currently considering suicide? No Do you have a plan to hurt yourself or No Plan others? Do You Have Any Spiritual Beliefs That No May Affect Your HC Choices? Do You Have Any Cultural Practices That No May Affect Your HC Choices? Who Can We Speak to About Patient's Care Will Huynh (daughter) Identifying Code for Release of Patient declined Information Health Care Proxy/Next of Kin Nicki Huynh (daughter) Health Care Proxy Emergency Contact Name Will Huynh (daughter) Emergency Contact Advance Directives? No Advance Directives on File No Power of Distresser Yes Power of Distresser Name Will Huynh (francisco j) Power of Distresser PAC Instructions Assistance for 24 hours post- op,Durable medical equipment, Nasal antibiotic,No ETOH/ petroleum product on skin DOS, NPO,Post-op transportation,Pre -surgical wash,Sturdy shoes/ comfortable clothes,Do not bring valuables and remove jewelry Comment Patient denied getting pre- surgical wash or nasal abx. Recommended pt Additional comment notify Dr. Frances's office. Patient agreed.
--- NOTE | 2023-05-08 15:00 | PT.IPTN ---
Current Diagnoses Spondylosis without myelopathy or radiculopathy, lumbar region (05/07/23) Arthrodesis status (05/07/23) Surgery Performed Operation Date: 05/07/23 07:45 Actual Procedures p L5-S1 TLIF, L3-S1 posterior instrumentation - Mona Frances MD Physical Therapy Treatment Note M2 PT-IP Current Condition Start: 05/08/23 14:10 Freq: NEEDED Status: Active Protocol: Document 05/08/23 14:12 AB (Rec: 05/08/23 14:35 AB [id number]) Physical Therapy Current Condition Current Condition Evaluation Date 05/08/23 Treatment Diagnosis s/p lumbar TLIF Onset Date 05/07/23 M3 PT-IP Subjective Start: 05/08/23 14:10 Freq: NEEDED Status: Active Protocol: Document 05/08/23 16:18 TS (Rec: 05/08/23 16:40 TS [id number]) Subjective Physical Therapy Visit Type Type Treatment Note Visit Start Time 15:00 Visit Stop Time 15:28 Total Visit Minutes 28 Number of SQUARING SHEAR OPERATOR Visits 1 Physical Therapy Visit Comments Patient Comments Pt found resting in bed, reports pain is currently 5/10 . Pt would like to go to SNF before d/c home. He is agreeable to PT. Therapy Pain Assessment Pain When Pain Assessed At Rest Pain Present Pain Present Pain Reported Location back Intensity 5 Scale Used Numeric (0 - 10) Description With Movement Pain Behaviors Facial Grimacing,Moaning, Restlessness,Wincing Pain Management Techniques Distraction,Modification of Treatment,Re-positioning, Timing of Activity with Medications M4 PT-IP Mobility and Gait Start: 05/08/23 14:10 Freq: NEEDED Status: Active Protocol: Document 05/08/23 16:18 TS (Rec: 05/08/23 16:40 TS [id number]) PT-Bed Mobility Assessment Rolling Type of Rolling Roll to Right Level of Assist Contact Guard Assistance,1 Person Assistance Supine to Sit Supine to Sit Minimal Assistance,1 Person Assistance Sit to Supine Sit to Supine Minimal Assistance,1 Person Assistance Scooting Scooting to Edge of Bed Contact Guard Assistance PT-Transfer Assessment Sit to and From Stand Sit to and from Stand Contact Guard Assistance,1 Person Assistance,Use of Upper Extremities Equipment Transfer Assistive Device Gait Belt,Front Wheeled Walker Comments Mobility Comments Pt recalled 3/3 spinal precautions prior to mobility. Supine to sit Rolo for uprighting trunk, pt required cues for decreased twisting and to maintain straight back . He requested to don clothing , pt donned shirt and pants with assist. He performed sit to stand with FWW CGA, pt was impulsive to stand before donning of gait belt. He ambulated ~100'CGA with slow step thru gait. He drags R toes on the ground, requires cues to lift foot and contact heel to ground first. Back in room he performed sit to supine with cues for logroll sequencing and decreased twisting, he required Rolo for LEs into bed. Pt was left in bed with call light nearby, all needs met. Gait Assessment Gait Gait Assistance Required: Contact Guard Assist,1 Person Assist Distance (Feet) 100 Assistive Devices Assistive Device Gait Belt,Front Wheeled Walker Orthotic/Prosthetic Devices or Brace: No Gait Deviations General Gait Pattern Antalgic,Decreased Stride Length,Decreased Feet Clearance,Narrow Based Gait Factors Limiting Gait Function Factors Limiting Gait Function Decreased Activity Tolerance, Decreased Strength, Incoordination,Limited Range of Motion,Pain,Poor Balance, Poor Safety Awareness Comments Gait Comments See mobility comments PT-Balance Assessment Sitting Balance and Reactions Static Sitting Balance Ability Good Dynamic Sitting Balance Ability Fair Standing Balance and Reactions Static Standing Balance Ability Fair Dynamic Standing Balance Ability Fair Device Used FWW M5 PT-IP Objective Assessments Start: 05/08/23 14:10 Freq: NEEDED Status: Active Protocol: Document 05/08/23 14:12 AB (Rec: 05/08/23 14:35 AB [id number]) Orientation Orientation/Cognition Level of Alertness Lethargic Orientation Name,Place,Situation Language Function Ability No Deficits Noted Safety Awareness Understands Safety Issues Memory Description No Deficits Noted Gross Range of Motion Upper Extremity ROM Assessment Within Functional Limits Lower Extremity ROM Assessment Within Functional Limits Strength Upper Extremity Strength Assessment Within Functional Limits Lower Extremity Strength Assessment Bilaterally Impaired M6 PT-IP Treatment Start: 05/08/23 14:10 Freq: NEEDED Status: Active Protocol: Document 05/08/23 16:18 TS (Rec: 05/08/23 16:40 TS [id number]) Physical Therapy Treatment Education Education Provided Precautions,Post-Op Packet, Safety M7 PT-IP Assessment and Plan Start: 05/08/23 14:10 Freq: NEEDED Status: Active Protocol: Document 05/08/23 16:18 TS (Rec: 05/08/23 16:40 TS [id number]) PT Summary Assessment and Plan Potential Rehabilitation Potential Fair Summary Impairments Pain,Strength,Bed Mobility, Transfers,Gait,Activity Tolerance Progress Towards Goals Progressing Toward Goals Assessment Summary Moose is making some progress with his mobility this session . He is CGA/Rolo for bed mobility and he requires some cueing for spinal precautions with bed mobility. He progressed his gait to ~100' CGA w/FWW. Pt tends to drag R foot on ground with minimal clearance. When provided cues for increased step height he has some improvement. He did state that before his surgery his L foot tended to drag on floor and not his R. PT is recommending 24/7 assist at home vs SNF at this time. Pt does not have 24/7 at home and would like to go to SNF. Goals Bed Mobility Goal Standby Assistance Transfer Goal Standby Assistance,Front Wheeled Walker Gait Goal Standby Assistance,Front Wheel Walker Gait Distance 50 Other Goals Pt to be able to ascend/ descend 3 steps with 1 hand rail to show improving strength and endurance in order to return to home safely . Days to Meet Goals 5 Frequency of Treatment Frequency Of Treatment Twice a Day Treatment Plan Physical Therapy Treatment Plan Bed Mobility Training,Transfer Training,Gait Training, Therapeutic Exercise,Balance Retraining,Post Op Education, Discharge Planning,Hot or Cold Pack,Neuromuscular Re-ed, Coordination Retraining,Manual Therapy Precautions Lumbar Precautions Log Roll,No Twisting,Limit Bending,Lifting Restriction of 10 lbs,Gait Belt above Incisional Area Weight Bearing Status Weight Bearing Status Weight Bear as Tolerated Recommendations To Nursing Amount of Assist Needed 1 Person Assist Discharge Recommendations PT Discharge Recommendations Home with 24/7 Assist Available,SNF Rehab,Home vs SNF Transportation Needs at Discharge Private Vehicle,Wheelchair/ Cabulance
[2023-05-08 16:58] VITALS: BP 117/58; PULSE 55; RESP 17; TEMP 36.2; O2SAT 95
[2023-05-08 20:23] VITALS: BP 122/72; PULSE 60; RESP 18; TEMP 36.7; O2SAT 94
[2023-05-08] MEDS: SENNOSIDES 8.6 MG TABLET 17.2 MG PO (21:15)
[2023-05-08] MEDS: SODIUM CHLORIDE 0.9% FLUSH 10 ML IV (21:15)
--- NOTE | 2023-05-08 23:32 | PC.NURSE ---
Patient is alert and oriented but very soft spoken. Breath sounds diminished at bases with RA sat of 94%. HRR. Denied nausea. BT present and is passing flatus. Catheter removed at 1230 today and at shift change voided 75cc and then later voided 100cc; bladder scan showing < 100cc. Denied dysuria. Is able to move himself in bed. Was gotten up to use urinal with 2 assists and walker to get to standing position but then able to get back into bed with 1 assist. CMS intact to bilateral LE although is unable to lift left leg off bed; states pain improved from prior to surgery Dressing to back was reinforced on previous shift and is currently CDI. Did complain of 7/10 back pain so was medicated with oxycodone + vistaril and is currently asleep. Refused SCD's so reminded to be ankle waving when awake. Fall risk score is high and bed alarm is activated.
[2023-05-09] VITALS (7 sets, daily range): BP systolic 104–141; BP diastolic 58–76; PULSE 58–64; RESP 16–18; TEMP 36.4–37.3; O2SAT 94–97
[2023-05-09] MEDS: OXYCODONE IR 10 MG TABLET PO ×3 (05:29→19:50)
[2023-05-09] MEDS: ACETAMINOPHEN 325 MG TABLET 650 MG PO ×2 (10:00→15:11)
[2023-05-09] MEDS: lisinopriL 20 MG TABLET PO (10:00)
--- NOTE | 2023-05-09 10:00 | PT.IPTN ---
Current Diagnoses Spondylosis without myelopathy or radiculopathy, lumbar region (05/07/23) Arthrodesis status (05/07/23) Surgery Performed Operation Date: 05/07/23 07:45 Actual Procedures p L5-S1 TLIF, L3-S1 posterior instrumentation - Mona Frances MD Physical Therapy Treatment Note M2 PT-IP Current Condition Start: 05/08/23 14:10 Freq: NEEDED Status: Active Protocol: Document 05/08/23 14:12 AB (Rec: 05/08/23 14:35 AB [id number]) Physical Therapy Current Condition Current Condition Evaluation Date 05/08/23 Treatment Diagnosis s/p lumbar TLIF Onset Date 05/07/23 M3 PT-IP Subjective Start: 05/08/23 14:10 Freq: NEEDED Status: Active Protocol: Document 05/09/23 10:29 TS (Rec: 05/09/23 10:45 TS [id number]) Subjective Physical Therapy Visit Type Type Treatment Note Visit Start Time 10:00 Visit Stop Time 10:27 Total Visit Minutes 27 Number of MIXER AND SCALER Visits 2 Physical Therapy Visit Comments Patient Comments Pt found resting in bed, daughter in room, pt reports having some pain, agreeable to PT. M4 PT-IP Mobility and Gait Start: 05/08/23 14:10 Freq: NEEDED Status: Active Protocol: Document 05/09/23 10:29 TS (Rec: 05/09/23 10:45 TS [id number]) PT-Bed Mobility Assessment Rolling Type of Rolling Roll to Left Level of Assist Minimal Assistance,1 Person Assistance Supine to Sit Supine to Sit Maximum Assistance,1 Person Assistance Scooting Scooting to Edge of Bed Minimal Assistance PT-Transfer Assessment Sit to and From Stand Sit to and from Stand Contact Guard Assistance,1 Person Assistance,Use of Upper Extremities Equipment Transfer Assistive Device Gait Belt,Front Wheeled Walker Orthotic/Prosthetic Devices or Brace: No Comments Mobility Comments Pt recalled 1/3 spinal precautions prior to mobility( twisting). He performed logroll with Rolo, required cues for LEs closer to EOB. Supine to sit MaxA for uprighting trunk, pt had some difficulty with cues for LEs over EOB when sitting up. Pt scooted to EOB Rolo with BUE support pushing from bed. He performed sit to stand x1 with FWW CGA, has good posture in standing with no retroleaning. He ambulated ~120'CGA, pt is unsteady on feet, at baseline walks with feet pointing inwards and drags his feet, cues were provided for increased sep length and height. Pt was left back in room in bedside chair with call light nearby, chair alarm on, daughter discussing care with SW. Gait Assessment Gait Gait Assistance Required: Contact Guard Assist,1 Person Assist Distance (Feet) 120 Assistive Devices Assistive Device Gait Belt,Front Wheeled Walker Orthotic/Prosthetic Devices or Brace: No Gait Deviations General Gait Pattern Antalgic,Decreased Stride Length,Decreased Feet Clearance,Narrow Based Gait Factors Limiting Gait Function Factors Limiting Gait Function Decreased Activity Tolerance, Decreased Strength, Incoordination,Limited Range of Motion,Pain,Poor Balance, Poor Safety Awareness Comments Gait Comments See mobility comments Stair Climbing Assessment Comments Stair Climbing Comments Not assessed due to fatigue/ weakness. PT-Balance Assessment Sitting Balance and Reactions Static Sitting Balance Ability Good Dynamic Sitting Balance Ability Fair Standing Balance and Reactions Static Standing Balance Ability Fair Dynamic Standing Balance Ability Fair Device Used FWW M5 PT-IP Objective Assessments Start: 05/08/23 14:10 Freq: NEEDED Status: Active Protocol: Document 05/08/23 14:12 AB (Rec: 05/08/23 14:35 AB [id number]) Orientation Orientation/Cognition Level of Alertness Lethargic Orientation Name,Place,Situation Language Function Ability No Deficits Noted Safety Awareness Understands Safety Issues Memory Description No Deficits Noted Gross Range of Motion Upper Extremity ROM Assessment Within Functional Limits Lower Extremity ROM Assessment Within Functional Limits Strength Upper Extremity Strength Assessment Within Functional Limits Lower Extremity Strength Assessment Bilaterally Impaired M6 PT-IP Treatment Start: 05/08/23 14:10 Freq: NEEDED Status: Active Protocol: Document 05/09/23 10:29 TS (Rec: 05/09/23 10:45 TS [id number]) Physical Therapy Treatment Education Education Provided Precautions,Post-Op Packet, Safety M7 PT-IP Assessment and Plan Start: 05/08/23 14:10 Freq: NEEDED Status: Active Protocol: Document 05/09/23 10:29 TS (Rec: 05/09/23 10:45 TS [id number]) PT Summary Assessment and Plan Potential Rehabilitation Potential Fair Summary Impairments Pain,Strength,Bed Mobility, Transfers,Gait,Activity Tolerance Progress Towards Goals Progressing Toward Goals Assessment Summary Moose is requiring increased for bed mobility this session to Rolo for logroll and MaxA for supine to sit. He has some difficulty following cues provided for bed mobility and can be impulsive with his movements. He conitnues to ambulate ~120' CGA, at baseline pt ambulates with feet pointed inwards, R>L, he is unsteady and has a NBOS. PT is recommending home 24/7 assist vs SNF. Goals Bed Mobility Goal Standby Assistance Transfer Goal Standby Assistance,Front Wheeled Walker Gait Goal Standby Assistance,Front Wheel Walker Gait Distance 50 Other Goals Pt to be able to ascend/ descend 3 steps with 1 hand rail to show improving strength and endurance in order to return to home safely . Days to Meet Goals 5 Frequency of Treatment Frequency Of Treatment Twice a Day Treatment Plan Physical Therapy Treatment Plan Bed Mobility Training,Transfer Training,Gait Training, Therapeutic Exercise,Balance Retraining,Post Op Education, Discharge Planning,Hot or Cold Pack,Neuromuscular Re-ed, Coordination Retraining,Manual Therapy Precautions Lumbar Precautions Log Roll,No Twisting,Limit Bending,Lifting Restriction of 10 lbs,Gait Belt above Incisional Area Weight Bearing Status Weight Bearing Status Weight Bear as Tolerated Recommendations To Nursing Amount of Assist Needed 1 Person Assist Discharge Recommendations PT Discharge Recommendations Home with 24/7 Assist Available,SNF Rehab,Home vs SNF Transportation Needs at Discharge Private Vehicle,Wheelchair/ Cabulance
[2023-05-09] MEDS: MELOXICAM 7.5 MG TABLET 15 MG PO (10:01)
[2023-05-09] MEDS: DOCUSATE 100 MG CAPSULE PO ×2 (10:02→20:12)
[2023-05-09] MEDS: SODIUM CHLORIDE 0.9% FLUSH 10 ML IV ×2 (10:02→20:12)
--- NOTE | 2023-05-09 11:07 | OT.IP.TRT ---
Current Diagnoses Spondylosis without myelopathy or radiculopathy, lumbar region (05/07/23) Arthrodesis status (05/07/23) Surgery Performed Operation Date: 05/07/23 07:45 Actual Procedures p L5-S1 TLIF, L3-S1 posterior instrumentation - Mona Frances MD Occupational Therapy Treatment Note M2 OT-IP Current Condition Start: 05/08/23 13:59 Freq: Status: Active Protocol: Document 05/08/23 11:25 [facility] (Rec: 05/08/23 14:15 [facility] [id number]) Occupational Therapy Current Condition Current Condition Evaluation Date 05/08/23 Treatment Diagnosis S/P L5-S1 TLIF, L3-S1 posterior inst. Diagnosis Onset Date 05/07/23 Post Operative Precautions Lumbar Precautions Log Roll,No Twisting,Limit Bending,Lifting Restriction of 10 lbs,Gait Belt above Incisional Area M3 OT- IP Subjective and Pain Start: 05/08/23 13:59 Freq: Status: Active Protocol: Document 05/09/23 11:07 [facility] (Rec: 05/09/23 11:19 [facility] [id number]) OT- Subjective Occupational Therapy Visit Type Type Treatment Note Visit Start Time 10:55 Visit Stop Time 11:07 Total Visit Minutes 12 Occupational Therapy Visit Comments Patient Comments Pt just getting back to bed and in too much pain to get up again. Patient/Caregiver Goals TO go to skilled rehab. OT Pain Assessment Pain When Pain Assessed At Rest Pain Present Pain Present Pain Reported Location back Pain Behaviors Facial Grimacing M4 OT- IP ADL's Start: 05/08/23 13:59 Freq: Status: Active Protocol: Document 05/09/23 11:07 [facility] (Rec: 05/09/23 11:19 [facility] [id number]) OT [id number] Comments OT Self-Feeding Comments Not at meal time. OT ADL-Grooming Comments OT Grooming Comments Not performed. OT ADL-Oral Care Comments Oral Care Comments Not performed. OT ADL-Dressing Comments OT Dressing Comments Educated pt on use of shoe aid and social media content specialist for LB dressing needs. OT ADL-Toileting Comments OT Toileting Comments Not performed. OT ADL-Bathing Comments OT Bathing Comments Not performed. M5 OT- IP IADL's Start: 05/08/23 13:59 Freq: Status: Active Protocol: Document 05/08/23 11:25 [facility] (Rec: 05/08/23 14:15 [facility] [id number]) OT-Instrumental Activities of Daily Living Deficits IADL Deficits Identified Deficits Home Safety Awareness Awareness of Need for Assistance at Home Good Awareness Home Safety Comments Pt able to recall his 2/3 back precautions. Meal Preparation Meal Preparation Caregiver Provides Assist Learning Design Specialist Learning Design Specialist Caregiver Provides Assist M6 OT- IP Functional Cognition Start: 05/08/23 13:59 Freq: Status: Active Protocol: Document 05/09/23 11:07 [facility] (Rec: 05/09/23 11:19 [facility] [id number]) Cognitive Factors Limiting Selfcare Function Cognitive Ability Level of Alertness Alert Patient Orientation Name,Place,Situation Attention Span Ability Capable of Focused Attention, Capable of Sustained Attention Ability to Follow Commands Able to Follow One Step Commands Safety Awareness Decreased Recall of Precautions Cognitive Comments Cognitive Assessment Comments Went over his back precautions and able to to stimulate various ADL's and to see if pt aware that he is following his back precautions. Pt will continue to benefit from more practice hands on and overall education. Document 05/09/23 11:07 [facility] (Rec: 05/09/23 11:19 [facility] [id number]) OT Summary Assessment and Plan Potential Rehabilitation Potential Good Analytic Complexity at Evaluation Low Summary OT Impairments Pain,Strength,Balance, Functional Mobility,Grooming, Dressing,Toileting,Bathing, Toilet Transfers,Shower Transfers,Activity Tolerance Progress Towards Goals Slow Progress due to Pain Assessment Summary Pt is lots of pain today and able to go over his back precautions and various scenarios. In addition able to show pt log rolling so he is able to see what he needs to try to do for himself. Yesterday pt tends to reach his arm back and twist his back and needing assist to keep his arms forwards so able to get into sidelying position and easier to get his legs up back into bed. Pt to go to skilled rehab when medically stable. Goals Self-Feeding Goal Independent Grooming Goal Independent Dressing Goal Independent Toileting Goal Independent Bathing Goal Independent Toilet Transfer Goal Independent Shower Transfer Goal Independent Patient/Caregiver Education Goal Demonstrate Post-Op Precautions Days to Meet Goals 11 Frequency of Treatment Frequency Of Treatment Once a Day Treatment Plan OT Treatment Plan ADL Training,Functional Cognition Training,Functional Mobility,Patient/Family Education,Discharge Planning Discharge Recommendations OT Discharge Recommendations SNF Rehab Transportation Needs at Discharge Wheelchair/Cabulance
--- NOTE | 2023-05-09 13:58 | PM.PNPO.1 ---
Subjective Subjective Date Patient Seen: 05/09/23 Interval history: Patient is resting comfortably in bed this morning. He states that his pain is well controlled with medication. He states that he feels better today than yesterday. He is looking forward to working with physical therapy today. Denies chest pain, shortness breath, nausea, vomiting. Exam Vital Signs (past 8 hours): - 05/09/23 10:00 Pulse Rate 64 Blood Pressure 141/62 H Oxygen Delivery Method Room Air Oxygen Flow Rate 0 Narrative Exam Narrative: Pleasant 63-year-old male. Awake, alert, and oriented. Intraoperative dressing clean, dry, and grossly intact. Strength and sensation intact to bilateral lower extremities. Bilateral calves soft, compressible, nontender with no palpable cords or masses. [facility] Medical History Ankylosing spondylitis Anxiety Diverticulitis HTN (hypertension) Osteoarthritis Rheumatoid arthritis Sciatica Surgical History History of appendectomy History of bilateral total hip arthroplasty History of inguinal hernia repair, bilateral Hx of umbilical hernia repair (06/22/20) Social History marital status: unknown household members: children occupational status: previously employed Smoking Status: Current every day smoker alcohol intake: current substance use type: does not use Assessment & Plan Post-op Postoperative Procedures: Procedures Operation Date: 05/07/23 07:45 Actual Procedure Side Surgeon p L5-S1 TLIF, L3-S1 posterior instrumentation Mona Frances MD Postoperative day: 2 Postoperative status: doing well Postoperative status narrative: Patient is progressing as expected following 1 level TLIF, multilevel posterior instrumentation, postop day 2 Postoperative plan: routine post-op care Postoperative plan narrative: Patient is progressing with physical therapy, though we will need more rehabilitation before returning home. Continue working with physical therapy while inpatient. Continue multi modal pain regimen. I have added 5 mg oxycodone in addition to the 10 mg option to be use as needed. Plan for discharge to [facility] facility tomorrow. Quality VTE Deep Vein Thrombosis/Pulmonary Embolism Present on Admission: No
--- NOTE | 2023-05-09 14:35 | PT.IPTN ---
Current Diagnoses Spondylosis without myelopathy or radiculopathy, lumbar region (05/07/23) Arthrodesis status (05/07/23) Surgery Performed Operation Date: 05/07/23 07:45 Actual Procedures p L5-S1 TLIF, L3-S1 posterior instrumentation - Mona Fracnes MD Physical Therapy Treatment Note M2 PT-IP Current Condition Start: 05/08/23 14:10 Freq: NEEDED Status: Active Protocol: Document 05/08/23 14:12 AB (Rec: 05/08/23 14:35 AB [id number]) Physical Therapy Current Condition Current Condition Evaluation Date 05/08/23 Treatment Diagnosis s/p lumbar TLIF Onset Date 05/07/23 M3 PT-IP Subjective Start: 05/08/23 14:10 Freq: NEEDED Status: Active Protocol: Document 05/09/23 15:10 TS (Rec: 05/09/23 15:38 TS [id number]) Subjective Physical Therapy Visit Type Type Treatment Note Visit Start Time 14:35 Visit Stop Time 15:04 Total Visit Minutes 29 Number of BILINGUAL CUSTOMER SERVICE SPECIALIST Visits 3 Physical Therapy Visit Comments Patient Comments Pt found resting in bed, reports pain is 7/10, agreeable to PT. Therapy Pain Assessment Pain When Pain Assessed At Rest Pain Present Pain Present Pain Reported Location back Intensity 7 Scale Used Numeric (0 - 10) Description Aching,Acute Pain Behaviors Facial Grimacing,Holding Area, Moaning,Restlessness,Wincing Pain Management Techniques Distraction,Modification of Treatment,Re-positioning, Timing of Activity with Medications M4 PT-IP Mobility and Gait Start: 05/08/23 14:10 Freq: NEEDED Status: Active Protocol: Document 05/09/23 15:10 TS (Rec: 05/09/23 15:38 TS [id number]) PT-Bed Mobility Assessment Rolling Type of Rolling Roll to Left Level of Assist Minimal Assistance,1 Person Assistance Supine to Sit Supine to Sit Minimal Assistance,1 Person Assistance,Head of Bed Elevated Sit to Supine Sit to Supine Moderate Assistance,1 Person Assistance Scooting Scooting to Edge of Bed Contact Guard Assistance PT-Transfer Assessment Sit to and From Stand Sit to and from Stand Contact Guard Assistance,1 Person Assistance,Use of Upper Extremities Equipment Transfer Assistive Device Gait Belt,Front Wheeled Walker Orthotic/Prosthetic Devices or Brace: No Comments Mobility Comments Pt performed logroll with Rolo , he requires cues to perform logroll and decreased twisting . Supine to sit Rolo with HOB elevated for uprighting trunk, requires cues for LEs over EOB. Sit to stand from bed CGA w/FWW, pt has no retroleaning in standing. He ambulated ~ 220'SBA, pt walks with feet pointed inwards, decreased step length/height and NBOS making him unsteady with gait. He performed steps x3 CGA with BUE support on handrails, pt has no buckling or LOB. Back in roompt performed sit to supine ModA for LEs into bed. Pt was left in bed with call light nearby, alarm on, RN notified pt requesting more pain meds. Gait Assessment Gait Gait Assistance Required: Standby Assistance,1 Person Assist Distance (Feet) 220 Assistive Devices Assistive Device Gait Belt,Front Wheeled Walker Orthotic/Prosthetic Devices or Brace: No Gait Deviations General Gait Pattern Antalgic,Decreased Stride Length,Decreased Feet Clearance,Narrow Based Gait Factors Limiting Gait Function Factors Limiting Gait Function Decreased Activity Tolerance, Decreased Strength, Incoordination,Limited Range of Motion,Pain,Poor Balance, Poor Safety Awareness Comments Gait Comments See mobility comments Stair Climbing Assessment Evaluation Level of Assist On Stairs Contact Guard Assistance,1 Person Assistance Devices Stair Climbing Assistive Devices Left Railing,Right Railing Technique/Endurance Stair Climbing Direction Ascend and Descend Stair Climbing Technique Step to Step Number of Steps Climbed 3 Comments Stair Climbing Comments See mobility comments. PT-Balance Assessment Sitting Balance and Reactions Static Sitting Balance Ability Good Dynamic Sitting Balance Ability Fair Standing Balance and Reactions Static Standing Balance Ability Fair Dynamic Standing Balance Ability Fair Device Used FWW M5 PT-IP Objective Assessments Start: 05/08/23 14:10 Freq: NEEDED Status: Active Protocol: Document 05/08/23 14:12 AB (Rec: 05/08/23 14:35 AB [id number]) Orientation Orientation/Cognition Level of Alertness Lethargic Orientation Name,Place,Situation Language Function Ability No Deficits Noted Safety Awareness Understands Safety Issues Memory Description No Deficits Noted Gross Range of Motion Upper Extremity ROM Assessment Within Functional Limits Lower Extremity ROM Assessment Within Functional Limits Strength Upper Extremity Strength Assessment Within Functional Limits Lower Extremity Strength Assessment Bilaterally Impaired M6 PT-IP Treatment Start: 05/08/23 14:10 Freq: NEEDED Status: Active Protocol: Document 05/09/23 15:10 TS (Rec: 05/09/23 15:38 TS [id number]) Physical Therapy Treatment Education Education Provided Precautions,Post-Op Packet, Safety M7 PT-IP Assessment and Plan Start: 05/08/23 14:10 Freq: NEEDED Status: Active Protocol: Document 05/09/23 15:10 TS (Rec: 05/09/23 15:38 TS [id number]) PT Summary Assessment and Plan Potential Rehabilitation Potential Fair Summary Impairments Pain,Strength,Bed Mobility, Transfers,Gait,Activity Tolerance Progress Towards Goals Progressing Toward Goals Assessment Summary Moose is making progress with his mobility this afternoon. He progressed his gait to ~ 220SBA with FWW. He continues to walk with toes pointed inwards and NBOS making him at high risk for falls. He progressed to stairs x3 with use of B handrails CGA. He lacks good safety awareness of spinal precautions during bed mobility, he requires consistent cueing throughout for decreased twisting. He tends to try to mobilize in his own way and doesn't demonstrate good carryover of bed mobility techniques. PT continues to recommend home with 24/7 assist vs SNF. Pt does not have 24/7 assist at home and would benefit from rehab to progress strength, reinforce spinal precautions and safety awareness. Goals Bed Mobility Goal Standby Assistance Transfer Goal Standby Assistance,Front Wheeled Walker Gait Goal Standby Assistance,Front Wheel Walker Gait Distance 50 Other Goals Pt to be able to ascend/ descend 3 steps with 1 hand rail to show improving strength and endurance in order to return to home safely . Days to Meet Goals 5 Frequency of Treatment Frequency Of Treatment Twice a Day Treatment Plan Physical Therapy Treatment Plan Bed Mobility Training,Transfer Training,Gait Training, Therapeutic Exercise,Balance Retraining,Post Op Education, Discharge Planning,Hot or Cold Pack,Neuromuscular Re-ed, Coordination Retraining,Manual Therapy Precautions Lumbar Precautions Log Roll,No Twisting,Limit Bending,Lifting Restriction of 10 lbs,Gait Belt above Incisional Area Weight Bearing Status Weight Bearing Status Weight Bear as Tolerated Recommendations To Nursing Amount of Assist Needed 1 Person Assist Discharge Recommendations PT Discharge Recommendations Home with 24/7 Assist Available,SNF Rehab,Home vs SNF Transportation Needs at Discharge Private Vehicle,Wheelchair/ Cabulance
[2023-05-09] MEDS: OXYCODONE IR 5 MG TABLET PO (15:12)
[2023-05-09] MEDS: SENNOSIDES 8.6 MG TABLET 17.2 MG PO (20:12)
--- NOTE | 2023-05-09 23:46 | PC.NURSE ---
Patient is alert and oriented and responds to orientation questions without hesitation. Is, however, very soft spoken. Breath sounds CTA with RA sat of 96%. HRR. Denied nausea. BT present and passing flatus but has not, yet, had BM since 05/06. Has been voiding but had only 450cc UOP on previous shift although only took in 460cc previous shift; discussed need to increase po intake. Is able to turn himself but is very slow in movements. Has been out of bed with walker and 1 assist; gait not assessed at this time as has not been up on this shift as yet. Coversite dressing to back rolled up so replaced. Complained of 8/10 pain in back and bilateral legs so was medicated with oxycodone at time of assessment and has been sleeping since that time. Declines use of SCD's so reminded of importance of ankle waving. CMS is intact although still unable to lift left leg off bed. Fall risk score is high and bed alarm is activated.
[2023-05-10] MEDS: OXYCODONE IR 10 MG TABLET PO ×3 (00:58→20:23)
[2023-05-10 08:15] VITALS: BP 124/72; PULSE 54
[2023-05-10] MEDS: DOCUSATE 100 MG CAPSULE PO ×2 (08:15→20:23)
[2023-05-10] MEDS: MELOXICAM 7.5 MG TABLET 15 MG PO (08:15)
[2023-05-10] MEDS: lisinopriL 20 MG TABLET PO (08:15)
[2023-05-10] MEDS: SODIUM CHLORIDE 0.9% FLUSH 10 ML IV ×2 (08:16→20:24)
[2023-05-10] MEDS: polyethylene glycoL 3350 17 GM POWD.PACK PO (08:35)
[2023-05-10 08:40] VITALS: BP 124/72; PULSE 54; RESP 18; TEMP 37.1; O2SAT 95
--- NOTE | 2023-05-10 10:35 | OT.IP.TRT ---
Current Diagnoses Spondylosis without myelopathy or radiculopathy, lumbar region (05/07/23) Arthrodesis status (05/07/23) Surgery Performed Operation Date: 05/07/23 07:45 Actual Procedures p L5-S1 TLIF, L3-S1 posterior instrumentation - Mona Frances MD Occupational Therapy Treatment Note M2 OT-IP Current Condition Start: 05/08/23 13:59 Freq: Status: Active Protocol: Document 05/08/23 11:25 [facility] (Rec: 05/08/23 14:15 [facility] [id number]) Occupational Therapy Current Condition Current Condition Evaluation Date 05/08/23 Treatment Diagnosis S/P L5-S1 TLIF, L3-S1 posterior inst. Diagnosis Onset Date 05/07/23 Post Operative Precautions Lumbar Precautions Log Roll,No Twisting,Limit Bending,Lifting Restriction of 10 lbs,Gait Belt above Incisional Area M3 OT- IP Subjective and Pain Start: 05/08/23 13:59 Freq: Status: Active Protocol: Document 05/10/23 10:17 [facility] (Rec: 05/10/23 10:52 [facility] [id number]) OT- Subjective Occupational Therapy Visit Type Type Treatment Note Visit Start Time 10:17 Visit Stop Time 10:35 Total Visit Minutes 18 Occupational Therapy Visit Comments Patient Comments Pt agreed to do cognitive assessment as pt's daughter requesting it. Patient/Caregiver Goals To get better. OT Pain Assessment Pain When Pain Assessed At Rest Pain Present Pain Present Pain Reported Location back Intensity 5 Scale Used Numeric (0 - 10) M6 OT- IP Functional Cognition Start: 05/08/23 13:59 Freq: Status: Active Protocol: Document 05/10/23 10:17 [facility] (Rec: 05/10/23 10:52 [facility] [id number]) Cognitive Factors Limiting Selfcare Function Cognitive Ability Level of Alertness Alert Patient Orientation Name,Age,Birthday,Month,Date, Year,Day of Week,Place, Situation Attention Span Ability Capable of Focused Attention, Capable of Sustained Attention Ability to Follow Commands Able to Follow One Step Commands Memory Description Short Term Impaired,Working Impaired Executive Function Ability Unable to Remember Details Cognitive Tests SLUMS Pt scored 14/30 on the Slums which implies dementia however pt feels that his pain medications are affecting his thinking. Pt continues to have difficulty to recall his back precautions. Pt not able to do math of 100-23, only able states 9 animals in one minute , not able to recall any of the 5 objects after time passed, and not able to state 4 digit number backwards, not able to draw the hour hands of the clock after time given, and able to answer 2/4 questions right after paragraph read. Cognitive Comments Cognitive Assessment Comments Pt still having difficulty with his short term memory needs. Pt needing constant cues to incorporate his back precautions. M9 OT- IP Assessment and Plan Start: 05/08/23 13:59 Freq: Status: Active Protocol: Document 05/10/23 10:17 [facility] (Rec: 05/10/23 10:52 [facility] [id number]) OT Summary Assessment and Plan Potential Rehabilitation Potential Good Analytic Complexity at Evaluation Low Summary OT Impairments Pain,Strength,Balance, Functional Mobility,Grooming, Dressing,Toileting,Bathing, Toilet Transfers,Shower Transfers,Activity Tolerance Progress Towards Goals Progressing Toward Goals Assessment Summary Pt just able to get to the bathroom and back with nursing assist prior to OT coming in. Pt's daughter requesting cognitive eval which pt scored 14/30 which implies dementia, however pt feels that his pain medications are causing his issues with his thinking. Pt to go to skilled rehab when medically stable. Pt's daughter states prior that pt does take his own medications and drives. Goals Self-Feeding Goal Independent Grooming Goal Independent Dressing Goal Independent Toileting Goal Independent Bathing Goal Standby Assistance Toilet Transfer Goal Independent Shower Transfer Goal Independent Patient/Caregiver Education Goal Demonstrate Post-Op Precautions Days to Meet Goals 10 Frequency of Treatment Frequency Of Treatment Once a Day Treatment Plan OT Treatment Plan ADL Training,Functional Cognition Training,Functional Mobility,Patient/Family Education,Discharge Planning Discharge Recommendations OT Discharge Recommendations SNF Rehab Transportation Needs at Discharge Wheelchair/Cabulance
--- NOTE | 2023-05-10 10:52 | P.PN_ITS ---
Subjective Subjective Date Patient Seen: 05/10/23 Time Patient Seen: 10:52 Interval history: Pain is mild. Denies fever chills. No nausea vomiting. Exam Vital Signs (past 8 hours): - 05/10/23 08:15 05/10/23 08:40 Temperature 98.8 F Pulse Rate 54 L 54 L Respiratory Rate 18 Blood Pressure 124/72 124/72 Pulse Oximetry 95 Oxygen Delivery Method Room Air Oxygen Flow Rate 0 Narrative Exam Narrative: 63-year-old male resting comfortably in bed in no apparent distress. Neurovascular status is intact bilateral lower extremities. Const General: cooperative and comfortable Nutritional Appearance: average body habitus Resp Effort & Inspection: normal respiratory effort and able to speak in complete sentences PFSH Medical History Ankylosing spondylitis Anxiety Diverticulitis HTN (hypertension) Osteoarthritis Rheumatoid arthritis Sciatica Surgical History History of appendectomy History of bilateral total hip arthroplasty History of inguinal hernia repair, bilateral Hx of umbilical hernia repair (06/22/20) Social History marital status: unknown household members: children occupational status: previously employed Smoking Status: Current every day smoker alcohol intake: current substance use type: does not use Assessment & Plan Post-op Postoperative Procedures: Procedures Operation Date: 05/07/23 07:45 Actual Procedure Side Surgeon p L5-S1 TLIF, L3-S1 posterior instrumentation Mona Frances MD Postoperative day: 3 Postoperative status narrative: Progressing as expected status post lumbar fusion Postoperative plan: routine post-op care Postoperative plan narrative: Multimodal pain management Limit bending, twisting, lifting Disposition shelter facility pending availability Quality VTE Deep Vein Thrombosis/Pulmonary Embolism Present on Admission: No
--- NOTE | 2023-05-10 11:10 | CM.DPNOTE ---
DCP Note Attempted to reach Izabella or Madison at [facility] throughout the day yesterday to confirm SNF bed for today and never heard back. Spoke w/Izabella at [facility] who explains she was off yesterday, further states that she cannot take patient today but can take patient tomorrow via [facility] transport for p/u between [id number]. Spoke w/Shirley at [facility] who thought she may have a male bed for patient today. Reviewed DCP w/patient's daughter Sammie who was adamantly against discharge to [facility] and stated she wants patient to discharge to [facility]. Updated Ortho TWILA Lee w/above and he was agreeable to plan as follows. Plan: Discharge to [facility] via wheelchair van tomorrow, p/u scheduled for [phone], will plan to coordinate holly/Izabella at [facility] tomorrow AM BILLIE
--- NOTE | 2023-05-10 11:47 | PT.IPTN ---
Current Diagnoses Spondylosis without myelopathy or radiculopathy, lumbar region (05/07/23) Arthrodesis status (05/07/23) Surgery Performed Operation Date: 05/07/23 07:45 Actual Procedures p L5-S1 TLIF, L3-S1 posterior instrumentation - Mona Frances MD Physical Therapy Treatment Note M2 PT-IP Current Condition Start: 05/08/23 14:10 Freq: NEEDED Status: Active Protocol: Document 05/08/23 14:12 AB (Rec: 05/08/23 14:35 AB [id number]) Physical Therapy Current Condition Current Condition Evaluation Date 05/08/23 Treatment Diagnosis s/p lumbar TLIF Onset Date 05/07/23 M3 PT-IP Subjective Start: 05/08/23 14:10 Freq: NEEDED Status: Active Protocol: Document 05/10/23 13:14 TS (Rec: 05/10/23 13:26 TS [id number]) Subjective Physical Therapy Visit Type Type Treatment Note Visit Start Time 11:47 Visit Stop Time 12:10 Total Visit Minutes 23 Number of [employer] DIRECTOR Visits 4 Physical Therapy Visit Comments Patient Comments Pt found resting in bed, agreeable to PT. M4 PT-IP Mobility and Gait Start: 05/08/23 14:10 Freq: NEEDED Status: Active Protocol: Document 05/10/23 13:14 TS (Rec: 05/10/23 13:26 TS [id number]) PT-Bed Mobility Assessment Rolling Type of Rolling Roll to Right Level of Assist Contact Guard Assistance,1 Person Assistance Supine to Sit Supine to Sit Contact Guard Assistance,1 Person Assistance,Head of Bed Elevated Sit to Supine Sit to Supine Moderate Assistance,1 Person Assistance Scooting Scooting to Edge of Bed Standby Assistance PT-Transfer Assessment Sit to and From Stand Sit to and from Stand Standby Assistance,Use of Upper Extremities Equipment Transfer Assistive Device Gait Belt,Front Wheeled Walker Orthotic/Prosthetic Devices or Brace: No Comments Mobility Comments Pt recalled 2/3 spinal precautions prior to mobility( no lifting). He performed logroll with minimal cueing and use of handrails. Supine to sit CGA, pt demonstrated good carryover of sequencing with BUE support and LEs over EOB. Sit to stand x1 SBA w/FWW , pt is slow to stand, has good standing balance. He ambulated ~220'SBA w/FWW, pt uses heavy UE support on FWW and tends to drag feet. Sit to supine into bed ModA for LEs inot bed, pt is impulsive to sit into bed, required cues for logroll and decreased twisting. Pt was left in bed with call light nearby, all needs met. Gait Assessment Gait Gait Assistance Required: Standby Assistance,1 Person Assist Distance (Feet) 220 Assistive Devices Assistive Device Gait Belt,Front Wheeled Walker Orthotic/Prosthetic Devices or Brace: No Gait Deviations General Gait Pattern Antalgic,Decreased Stride Length,Decreased Feet Clearance,Narrow Based Gait Factors Limiting Gait Function Factors Limiting Gait Function Decreased Activity Tolerance, Decreased Strength, Incoordination,Limited Range of Motion,Pain,Poor Balance, Poor Safety Awareness Comments Gait Comments See mobility comments PT-Balance Assessment Sitting Balance and Reactions Static Sitting Balance Ability Good Dynamic Sitting Balance Ability Fair Standing Balance and Reactions Static Standing Balance Ability Fair Dynamic Standing Balance Ability Fair Device Used FWW M5 PT-IP Objective Assessments Start: 05/08/23 14:10 Freq: NEEDED Status: Active Protocol: Document 05/08/23 14:12 AB (Rec: 05/08/23 14:35 AB [id number]) Orientation Orientation/Cognition Level of Alertness Lethargic Orientation Name,Place,Situation Language Function Ability No Deficits Noted Safety Awareness Understands Safety Issues Memory Description No Deficits Noted Gross Range of Motion Upper Extremity ROM Assessment Within Functional Limits Lower Extremity ROM Assessment Within Functional Limits Strength Upper Extremity Strength Assessment Within Functional Limits Lower Extremity Strength Assessment Bilaterally Impaired M6 PT-IP Treatment Start: 05/08/23 14:10 Freq: NEEDED Status: Active Protocol: Document 05/10/23 13:14 TS (Rec: 05/10/23 13:26 TS [id number]) Physical Therapy Treatment Education Education Provided Precautions,Post-Op Packet, Safety M7 PT-IP Assessment and Plan Start: 05/08/23 14:10 Freq: NEEDED Status: Active Protocol: Document 05/10/23 13:14 TS (Rec: 05/10/23 13:26 TS [id number]) PT Summary Assessment and Plan Potential Rehabilitation Potential Fair Summary Impairments Pain,Strength,Bed Mobility, Transfers,Gait,Activity Tolerance Progress Towards Goals Progressing Toward Goals Assessment Summary Moose continues to make progress with his mobility. He continues to ambulate ~220' SBA w/FWW. He tends to drag feet and has a NBOS making him unsteady with gait. He continues to have difficulty recalling spinal precautions, he recalled 2/3(no lifting). He continues to lack some safety awareness with spinal precautions, needs some cueing during bed mobility for decreased twisting and use of logroll technique. PT is recommending home 24/7 vs SNF. Pt does not have 24/7 at home and would benefit from rehab to progress independence before going home. Goals Bed Mobility Goal Standby Assistance Transfer Goal Standby Assistance,Front Wheeled Walker Gait Goal Standby Assistance,Front Wheel Walker Gait Distance 50 Other Goals Pt to be able to ascend/ descend 3 steps with 1 hand rail to show improving strength and endurance in order to return to home safely . Days to Meet Goals 5 Frequency of Treatment Frequency Of Treatment Twice a Day Treatment Plan Physical Therapy Treatment Plan Bed Mobility Training,Transfer Training,Gait Training, Therapeutic Exercise,Balance Retraining,Post Op Education, Discharge Planning,Hot or Cold Pack,Neuromuscular Re-ed, Coordination Retraining,Manual Therapy Precautions Lumbar Precautions Log Roll,No Twisting,Limit Bending,Lifting Restriction of 10 lbs,Gait Belt above Incisional Area Weight Bearing Status Weight Bearing Status Weight Bear as Tolerated Recommendations To Nursing Amount of Assist Needed 1 Person Assist Discharge Recommendations PT Discharge Recommendations Home with 24/7 Assist Available,SNF Rehab,Home vs SNF Transportation Needs at Discharge Private Vehicle,Wheelchair/ Cabulance
[2023-05-10] MEDS: ACETAMINOPHEN 325 MG TABLET 650 MG PO ×2 (15:11→20:28)
[2023-05-10] MEDS: OXYCODONE IR 5 MG TABLET PO (15:12)
[2023-05-10 16:01] VITALS: BP 127/69; PULSE 56; RESP 18; TEMP 37.4; O2SAT 94
--- NOTE | 2023-05-10 16:17 | PT-IP ANOTE ---
Pt refused to work with PT this afternoon, he would like to rest. PT will check back in tomorrow morning.
[2023-05-10 19:00] VITALS: BP 122/65; PULSE 57; RESP 20; TEMP 36.3; O2SAT 97
[2023-05-10] MEDS: SENNOSIDES 8.6 MG TABLET 17.2 MG PO (20:23)
[2023-05-10] MEDS: MAGNESIUM HYDROXIDE 30 ML UDC PO (20:23)
[2023-05-10] MEDS: LORATADINE 10 MG TABLET PO (21:22)
[2023-05-11] MEDS: ACETAMINOPHEN 325 MG TABLET 650 MG PO (05:29)
[2023-05-11] MEDS: OXYCODONE IR 10 MG TABLET PO (05:29)
[2023-05-11] MEDS: DOCUSATE 100 MG CAPSULE PO (09:07)
[2023-05-11] MEDS: MELOXICAM 7.5 MG TABLET 15 MG PO (09:07)
[2023-05-11] MEDS: LORATADINE 10 MG TABLET PO (09:07)
[2023-05-11 09:08] VITALS: BP 128/66; PULSE 61
[2023-05-11] MEDS: lisinopriL 20 MG TABLET PO (09:08)
[2023-05-11 09:09] VITALS: BP 128/66; PULSE 54; RESP 18; TEMP 36.7; O2SAT 98
--- NOTE | 2023-05-11 10:30 | PM.DS.1 ---
History of Present Illness History of Present Illness Date Patient Seen: 05/11/23 Time Patient Seen: 07:45 Chief complaint: Low back pain Narrative: Patient's pain is [id number]. Denies fever chills. No nausea vomiting. Discharge Providers Provider Date of admission: 05/07/23 06:11 Discharge Date: 05/11/23 Primary care physician: Jasbir George MD Consults: 05/07/23 12:23 Consult to Occupational Therapy Evaluate & Treat Comment: Physician Instructions: Evaluate and treat Consult to Physical Therapy Evaluate & Treat Comment: Physician Instructions: Evaluate and Treat Discharge provider: Diego Lee PA-C Summary Hospital Course Discharge Diagnosis: 1. L5-S1 spinal stenosis 2. Epidural lipomatosis 3. History of L3-5 fusion with hardware loosening Post-op diagnosis: same Hospital Course: 1. L5-S1 posterolateral and posterior interbody fusion 2. L5-S1 posterior interbody cage placement 3. L3-5 posterior segmental instrumentation removal 4. L3-4, L4-5 revision laminectomy with exploration of fusion 5. L3-4, L4-5, L5-S1 posterior segmental instrumentation with pedicle screw placement 6. L4-5 posterolatearl fusion 7. Bay of bone marrow from iliac crest through a separate incision 8. Utilization of microsurgical technique and operating microscope Patient admitted to the hospital for the above-mentioned procedure. Patient consented to the same. Patient underwent lumbar fusion on May 07, 2023. Patient has been slow to progress and be discharged to fpc facility today. Status at Discharge Cognitive/behavioral status at discharge: at baseline, oriented and at baseline, confused Functional status at discharge: uses cane/walker Overall status at discharge: patient is progressing back to baseline Exam Vital Signs (past 8 hours): - 05/11/23 09:08 05/11/23 09:09 Temperature 98.0 F Pulse Rate 61 54 L Respiratory Rate 18 Blood Pressure 128/66 128/66 Pulse Oximetry 98 Oxygen Delivery Method Room Air Oxygen Flow Rate 0 Narrative Exam Narrative: 63-year-old male resting comfortably in bed in no apparent distress. Motor functions intact bilateral lower extremities. Sensation grossly intact to light touch bilateral lower extremities. Const General: cooperative and comfortable Nutritional Appearance: well nourished Orientation: alert Resp Effort & Inspection: normal respiratory effort and able to speak in complete sentences PENDING SALE TO [facility] Medical History Ankylosing spondylitis Anxiety Diverticulitis HTN (hypertension) Osteoarthritis Rheumatoid arthritis Sciatica Surgical History History of appendectomy History of bilateral total hip arthroplasty History of inguinal hernia repair, bilateral Hx of umbilical hernia repair (06/22/20) Social History marital status: unknown household members: children occupational status: previously employed Smoking Status: Current every day smoker alcohol intake: current substance use type: does not use Discharge Assessment & Plan Assessment and Plan Assessment: Stable status post lumbar fusion. Plan of Treatment: Multimodal pain management Mobilize with physical therapy, limit bending, twisting, lifting Follow-up in 2 weeks, orthopedic clinic Patient has been slow to progress with physical therapy. Patient will be discharged to fpc facility today. Discharge Plan Discharge Plan Patient Disposition: SNF Transfer to: [facility] Discharge orders & Medications Prescriptions: New acetaminophen 325 mg Tablet 650 mg PO Q6H PRN (Reason: Fever/Mild Pain (1-3)) Qty: 60 0RF docusate sodium 100 mg Capsule 100 mg PO BID Qty: 20 0RF oxycodone 5 mg Tablet 5 mg PO Q3HR PRN (Reason: Pain, Moderate (4-6)) Qty: 60 0RF Continued lisinopril 20 mg Tablet 20 mg PO DAILY meloxicam 15 mg Tablet 15 mg PO DAILY Cosentyx 150 mg/mL Syringe 150 mg SUBCUT Q4W Follow up/Referrals: Jasbir George MD [Primary Care Provider] - Diet/Activity/Treatments Diet: Diet as Tolerated Activity: Limit bending, twisting, lifting Cold/Heat Therapy: Ice as needed to low back Skin/Wound/Dressing Care Report to your healthcare provider any signs of infection, such as:: chills, fever, increased pain, unusual drainage and unusual redness Dressing: Keep dressing clean and dry [facility] Reason for rehabilitation: Post-operative therapy Rehab type: Physical therapy and Occupational therapy Visit Report/Discharge Packet Instructions: DI for Transforaminal Lumbar Interbody Fusion Stand Alone Forms: Patient Portal/API, Surgery Discharge Discharge Data Primary Care Provider: Jasbir George Quality VTE Deep Vein Thrombosis/Pulmonary Embolism Present on Admission: No
--- NOTE | 2023-05-11 10:47 | OT.IPNOTE ---
Pt being discharged to SNF today. Pt able to recall all his back precautions today. Went over with pt to make sure to ask questions when he is at rehab and be proactive in his care. No charge
[2023-05-11 11:08] VITALS: PULSE 55; RESP 18; TEMP 36.8; O2SAT 96
--- NOTE | 2023-05-11 11:43 | PC.NURSE ---
Patient is AxOx4, VSS, on RA. Pain adequately controlled w/ ordered pain medication. OOB w/ 1 pa FWW and gait belt, 1 large BM this morning. Called report to BERTA Mathis at [facility]. All belongings are packed and with patient. Gave packet including hard prescriptions to cabulance roll off driver, transport picked up patient at 1140. No IV access this morning.
--- NOTE | 2023-05-11 13:39 | CM.DPNOTE ---
DC Note Discharge today to [facility] via wheelchair van through [facility], p/u between [phone], patient and dtr Sammie aware and agreeable to plan. Completed and signed DC ppk, DC Summary, med list and PASRR emailed to Izabella at [facility] by ABIGAIL Browne. Nurse 2 Nurse number provided to RN Cristina and Mahsa. Plan: Discharge to [facility] via w/c van JW
== END 2023-05-11 11:40 | DRG 454 ==
PROVIDERS: Admitting Provider Orthopaedic Surgery Orthopaedic Surgery of the Spine; PCP Family Medicine; Referring Provider Orthopaedic Surgery Orthopaedic Surgery of the Spine; Visit Provider Orthopaedic Surgery Orthopaedic Surgery of the Spine
PROC: 0SG30AJ Fusion of Lumbosacral Joint with Interbody Fusion Device, Posterior Approach, Anterior Column, Open Approach (ICD-10-PCS; principal; 2023-05-07 07:45)
DX: M48.07 Spinal stenosis, lumbosacral region (principal); M96.0 Pseudarthrosis after fusion or arthrodesis; T84.038A Mechanical loosening of other internal prosthetic joint, initial encounter; E88.2 Lipomatosis, not elsewhere classified; M48.062 Spinal stenosis, lumbar region with neurogenic claudication; M47.816 Spondylosis without myelopathy or radiculopathy, lumbar region; M96.1 Postlaminectomy syndrome, not elsewhere classified; I10 Essential (primary) hypertension; M19.90 Unspecified osteoarthritis, unspecified site; F17.210 Nicotine dependence, cigarettes, uncomplicated; Z98.1 Arthrodesis status
CPT/HCPCS: 72100; 76000; 97116; 97129; 97162; 97165; 97530; C1713; C9290; J0171; J0690; J1100; J1170; J2250; J2405; J2704; J3010

== ENCOUNTER → 2023-07-02 09:45 | Outpatient (CLI) | payer MEDICARE, OTHER, SELFPAY ==
[2023-05-07 06:51] VITALS: BMI 27.4
--- NOTE | 2023-07-02 | DI.CT.S_ITS ---
PROCEDURE: CT CHEST W CON INDICATIONS: Unspecified voice and resonance disorder TECHNIQUE: After the administration of intravenous contrast, 5 mm thick sections acquired from the pulmonary apices to the posterior costophrenic angles. 1 mm axial lung, 5 mm thick coronal and sagittal reformats and 7 mm axial MIP were acquired. For radiation dose reduction, the following was used: automated exposure control, adjustment of mA and/or kV according to patient size. COMPARISON: [facility], CT, CT SOFT TISSUE NECK W CON, 07/02/2023, 10:02. FINDINGS: Image quality: Excellent. Lungs and pleura: 6 mm noncalcified right lower lobe pulmonary nodule, image 219/3. No acute air space opacities. No pleural effusions or pneumothorax. Central and peripheral airways are patent and normal in caliber. Mediastinum: Heart size is normal. No pericardial effusion. No mediastinal or hilar adenopathy by size criteria. Thoracic aorta and central pulmonary arteries are normal in size. Esophagus is normal in caliber. No hiatal hernia. Bones and chest wall: No suspicious bony lesions. No vertebral body compression fractures. No axillary or supraclavicular adenopathy by size criteria. Thyroid gland is unremarkable . Abdomen: Visualized upper abdominal solid organs appear normal. Upper abdominal bowel loops are normal in caliber. IMPRESSION: 1. 6 mm pulmonary nodule, right lung. Please referred to chart below for follow-up recommendations. 2. No acute pulmonary process. Fleischner Society criteria for SOLID lung nodule followup. Nodule size (mm)Low-risk patientHigh-risk patient<6 (single or multiple)No routine followup.Optional CT at 12 months. 6-8 (single or multiple)CT at 6-12 months, then optional CT at 18-24 mo.CT at 6-12 months, then CT at 18-24 months. >8 (single)CT at 3 months, PET-CT, or biopsy. Same as for low-risk pts. >8 (multiple)CT at 3-6 months, then optional CT at 18-24 mo.CT at 3-6 months, then CT at 18-24 months. Fleischner Society criteria for SUB-SOLID lung nodule followup. Solitary pure ground-glass nodules<6 mm (ground glass or part solid)No followup needed. 6 mm or larger (ground glass)CT at 6-12 months to confirm persistence, then CT every 2 years until 5 years.6 mm or larger (part solid)CT at 3-6 months to confirm persistence, then annual CT until 5 years if unchanged and solid component remains <6 mm. Multiple sub-solid nodules<6 mmCT at 3-6 months, then CT consider at 2 & 4 years for high risk patients. [address] at 3-6 months. Subsequent management based on most suspicious lesions. Recommendations do not apply to lung cancer screening, patients with immunosuppression, or patients with known primary cancer. Dictated by: Koffi Cruz M.D. on 07/02/2023 at 18:52 Approved by: Koffi Cruz M.D. on 07/02/2023 at 19:00
--- NOTE | 2023-07-02 | DI.CT.S_ITS ---
PROCEDURE: CT SOFT TISSUE NECK W CON INDICATIONS: Unspecified voice and resonance disorder TECHNIQUE: After the administration of intravenous contrast, 3.0 mm axial sections acquired from the sella to the aortic arch. Additional oblique axial 3.0 mm sections acquired through the pharynx. 3 mm thick coronal and sagittal reformats were generated. For radiation dose reduction, the following was used: automated exposure control. Additional axial images obtained through the glottis during phonation. COMPARISON: None. FINDINGS: Skull Base: The visualized intracranial contents, skull, and orbits are unremarkable. Bilateral maxillary sinus retention cysts partially imaged. Pharynx and Larynx: The nasopharyngeal airway is patent and midline. Parapharyngeal soft tissues including palatine tonsils and base of the tongue are normal. Retropharyngeal space unremarkable. Normal appearance of the false and true vocal cords. Muscles and Fascial Planes: Fascial planes are well maintained. No abscess or mass lesion. Lymph Nodes: No evidence of adenopathy. Vasculature: Unremarkable. Submandibular and Parotid Glands: Normal in size and attenuation. Thyroid: Unremarkable. No enlarged or calcified nodules. Bones: No acute fracture. No osteolytic or blastic lesion is evident. Normal bone mineralization. Degenerative disc disease and arthropathy in the cervical spine results in reversal the normal cervical lordosis Lung Apices: The visualized lung apices are clear. IMPRESSION: 1. Degenerative disc disease and arthropathy in the cervical spine. Otherwise unremarkable CT of the neck Approved by: Brian Guthrie M.D. on 07/02/2023 at 16:36
== END ==
PROVIDERS: PCP Family Medicine; Referring Provider Registered Nurse; Visit Provider Registered Nurse
DX: M50.30 Other cervical disc degeneration, unspecified cervical region (principal); R91.1 Solitary pulmonary nodule; R06.02 Shortness of breath; M47.812 Spondylosis without myelopathy or radiculopathy, cervical region; R49.8 Other voice and resonance disorders; Z87.891 Personal history of nicotine dependence
CPT/HCPCS: 70491; 71260; Q9967

== ENCOUNTER → 2023-12-24 13:04 | Outpatient (CLI) | payer MEDICARE, OTHER, SELFPAY ==
[2023-05-07 06:51] VITALS: BMI 27.4
--- NOTE | 2023-12-24 13:06 | DI.CT.S_ITS ---
PROCEDURE: CT LUMBAR SPINE WO CON INDICATIONS: Spinal stenosis, lumbar region TECHNIQUE: Noncontrast 3 mm thick sections acquired from the T12 level to the sacrum. Sagittal and coronal reformats were constructed. For radiation dose reduction, the following was used: automated exposure control. COMPARISON: [facility], MR, MR LUMBAR SPINE WO CON, 03/29/2022, 12:08. [facility], CR, XR LUMBAR SPINE 2 OR 3 VIEWS, 12/11/2023, 8:40. [facility], CT, CT LUMBAR SPINE WO CON, 06/27/2022, 10:57. [facility], CT, CT LUMBAR SPINE WO CON, 02/02/2023, 10:39. FINDINGS: Image quality: There is artifact associated with the metallic hardware. Artifact from the metallic hardware is reduced by metal reconstruction algorithm. Bones: No acute vertebral body compression fractures. No suspicious lytic or blastic bony lesions. No pars defects. Mild levoconvex scoliotic curvature is noted. Minimal retrolisthesis can be seen at L2-L3 and L3-L4. Bilateral pedicle screws can be seen at L3, L4, L5, and S1. Vertical fixation rods are seen. Disc spacers are seen throughout the fused region. No findings of hardware failure or hardware loosening are seen. There has been removal of portions of the posterior elements. T12-L1: Bkoy-[id number]-wuourluu loss of the disc height is seen. Calcification can be seen along the disc level. No significant neural foraminal or central canal narrowing can be seen. L1-L2: Normal. L2-L3: [id number] loss of disc height is seen posteriorly and on the right. Endplate irregularity and sclerosis can be seen. Moderate generalized disc bulge is seen. There is moderate right-sided and mild left-sided neural foraminal narrowing. Mild central canal narrowing is seen. The degree of endplate irregularity and sclerosis is worse than in 2023. L3-L4: Postoperative change is seen at this level. Mild generalized disc bulge is seen. There is mild right-sided and no significant left-sided neural foraminal narrowing. No central canal narrowing is seen. When comparison is made with the prior images, these findings are similar. L4-L5: Postoperative change can be seen at this level. Mild generalized disc bulge is seen. Mild to moderate facet hypertrophy is seen. There is mild left-sided and no right-sided neural foraminal narrowing. No central canal narrowing is seen. When comparison is made with the prior images, these findings are similar. L5-S1: Postoperative change can be seen at this level. No neural foraminal narrowing or central canal narrowing can be seen. Soft tissues: No retroperitoneal masses or hematomas. Visualized aorta is normal in caliber. Atherosclerotic calcification is noted. Colonic diverticulosis is seen, without findings of active diverticulitis. IMPRESSION: Intact lumbosacral fixation hardware. Mild progression of degenerative change at L2-L3, with worsening of endplate irregularity and sclerosis. Otherwise, the degenerative change appears stable compared to the prior CT images. Dictated by: Vincent Logan M.D. on 12/24/2023 at 13:15 Approved by: Vincent Logan M.D. on 12/24/2023 at 13:21
== END ==
PROVIDERS: PCP Family Medicine; Referring Provider Orthopaedic Surgery Orthopaedic Surgery of the Spine; Visit Provider Orthopaedic Surgery Orthopaedic Surgery of the Spine
DX: M48.062 Spinal stenosis, lumbar region with neurogenic claudication (principal); M47.816 Spondylosis without myelopathy or radiculopathy, lumbar region; M51.36 Other intervertebral disc degeneration, lumbar region; I70.0 Atherosclerosis of aorta; K57.90 Diverticulosis of intestine, part unspecified, without perforation or abscess without bleeding; Z98.1 Arthrodesis status; M41.9 Scoliosis, unspecified
CPT/HCPCS: 72131

== ENCOUNTER 2024-01-10 18:39 | Emergency (ER) | payer MEDICARE, OTHER, SELFPAY ==
[2023-05-07 06:51] VITALS: BMI 27.4
[2024-01-10 19:15] VITALS: BP 190/93; PULSE 54; RESP 17; TEMP 36.5; O2SAT 97; BMI 25.8
[2024-01-10] MEDS: HYDROMORPHONE 1 MG INJ IM (19:50)
[2024-01-10] MEDS: KETOROLAC 30 MG/ML VIAL IM (19:50)
--- NOTE | 2024-01-10 19:58 | ED.BACK ---
HPI - Back Pain/Injury General Chief Complaint: Back Pain/Injury Stated Complaint: Serious Back Pain Time Seen by Provider: 01/10/24 19:37 Source: patient Mode of arrival: Ambulatory History of Present Illness HPI Narrative: Patient is a 63-year-old male. Known history of back issues. Has had multiple surgeries. Does have effusion. Stated that had a massage performed and since that time has had discomfort specifically in the right-sided paraspinal region. No bowel or bladder discomfort. No fevers. No recent instrumentation. Has not tried any medications prior to arrival. Related Data Home Medications Medication Instructions Recorded Confirmed lisinopril 20 mg tablet 20 mg PO DAILY 08/01/22 05/07/23 meloxicam 15 mg tablet 15 mg PO DAILY 05/02/23 05/07/23 secukinumab 150 mg/mL subcutaneous 150 mg SUBCUT Q4W 05/07/23 05/07/23 syringe (Cosentyx) Previous Rx's Medication Instructions Recorded acetaminophen 325 mg tablet 650 mg (2 x 325 mg) PO Q6H PRN 05/11/23 Fever/Mild Pain (1-3) #60 tabs docusate sodium 100 mg capsule 100 mg PO BID #20 caps 05/11/23 oxycodone 5 mg tablet 5 mg PO Q3HR PRN Pain, Moderate 05/11/23 (4-6) #60 tabs cyclobenzaprine 10 mg tablet 10 mg PO TID PRN muscle spasm #21 01/10/24 tabs hydrocodone 5 mg-acetaminophen 325 1 tab PO Q4-6H PRN pain #10 tabs 01/10/24 mg tablet Allergies Allergy/AdvReac Type Severity Reaction Status Date / Time No Known Drug Allergies Allergy Verified 01/10/24 19:20 Review of Systems Constitutional Constitutional: Reports system reviewed and no additional complaints, except as documented Musculoskeletal Musculoskeletal: Reports system reviewed and no additional complaints, except as documented Integumentary/Breasts Skin/Breast: Reports system reviewed and no additional complaints, except as documented Neurologic Neurologic: Reports system reviewed and no additional complaints, except as documented Patient History Medical History Ankylosing spondylitis Anxiety Sciatica HTN (hypertension) Diverticulitis Osteoarthritis Rheumatoid arthritis Surgical History History of appendectomy History of bilateral total hip arthroplasty History of inguinal hernia repair, bilateral Hx of umbilical hernia repair (06/22/20) Social History marital status: unknown household members: children occupational status: previously employed Smoking Status: Current every day smoker alcohol intake: current substance use type: does not use Smoking Status: Current every day smoker alcohol intake frequency: a few times a month Substance Use Type: does not use Exam Initial Vital Signs Initial Vital Signs: Vital Signs Temperature 97.7 F 01/10/24 19:15 Pulse Rate 54 L 01/10/24 19:15 Respiratory Rate 17 01/10/24 19:15 Blood Pressure 190/93 H 01/10/24 19:15 Pulse Oximetry 97 01/10/24 19:15 Oxygen Delivery Method Room Air 01/10/24 19:15 Back/Spine/Pelvis Thoracic/Lumbar Spine: surgical scar(s) present, paraspinal tenderness, No thoracic spinal tenderness and lumbar spinal tenderness Skin General: no rashes or lesions noted Neuro General: patient alert, patient awake and patient oriented x3 Extrem General: capillary refill normal Course Orders Ordered: Discontinued Medications Hydrocodone Bitart/Acetaminophen (Hydrocodone/Acet 5/325 Prepack) 1 bottle MISC DIRECTED ONE Stop: 01/10/24 20:00 Last Admin: 01/10/24 20:12 Dose: 1 bottle Documented By: LIYAH Cyclobenzaprine HCl (Cyclobenzaprine 10 Mg Prepack) 1 bottle MISC DIRECTED ONE Stop: 01/10/24 20:00 Last Admin: 01/10/24 20:12 Dose: 1 bottle Documented By: LIYAH Hydromorphone HCl (Hydromorphone 1 Mg Inj) 1 mg IM NOW ONE Stop: 01/10/24 19:38 Last Admin: 01/10/24 19:50 Dose: 1 mg Documented By: LIYAH Ketorolac Tromethamine (Ketorolac 30 Mg/Ml Vial) 30 mg IM NOW ONE Stop: 01/10/24 19:38 Last Admin: 01/10/24 19:50 Dose: 30 mg Documented By: LIYAH Vital Signs Vital signs: Vital Signs - 8 hr 01/10/24 19:15 Temperature 97.7 F Pulse Rate 54 L Respiratory Rate 17 Blood Pressure 190/93 H Pulse Oximetry 97 Oxygen Delivery Method Room Air MDM - Back Pain/Injury MDM Narrative Medical decision making narrative: Patient does have mostly paraspinal right-sided lumbar discomfort most likely flared after having the massage yesterday. Low suspicion for cauda equina. Low suspicion for fracture. No indication for imaging studies. Will treat symptomatically for now. Will have him contact the orthopedic spine surgeon who he was seen in the past for follow-up. He was given return precautions. He expressed understanding and agreement. Discharge Plan Departure Patient Disposition: Home Clinical Impression: Strain of lumbar region Instructions: DI for Low Back Pain Activity Restrictions/Additional Instructions: I recommend that you take the medications as directed. Contact your primary doctor for a follow-up. Return to the emergency department for new symptoms. Prescriptions: New cyclobenzaprine 10 mg tablet 10 mg PO TID PRN (Reason: muscle spasm) Qty: 21 0RF hydrocodone-acetaminophen 5-325 mg tablet 1 tab PO Q4-6H PRN (Reason: pain) Qty: 10 0RF No Action lisinopril 20 mg Tablet 20 mg PO DAILY meloxicam 15 mg Tablet 15 mg PO DAILY Cosentyx 150 mg/mL Syringe 150 mg SUBCUT Q4W acetaminophen 325 mg Tablet 650 mg PO Q6H PRN (Reason: Fever/Mild Pain (1-3)) Qty: 60 0RF docusate sodium 100 mg Capsule 100 mg PO BID Qty: 20 0RF oxycodone 5 mg Tablet 5 mg PO Q3HR PRN (Reason: Pain, Moderate (4-6)) Qty: 60 0RF Referrals: Jasbir George MD [Primary Care Provider] - Stand Alone Forms: Patient Portal/API
[2024-01-10] MEDS: HYDROCODONE/ACET 5/325 PREPACK 1 BOTTLE MISC (20:12)
[2024-01-10] MEDS: CYCLOBENZAPRINE 10 MG PREPACK 1 BOTTLE MISC (20:12)
== END 2024-01-10 20:22 | disposition home or self-care (01) ==
PROVIDERS: Emergency Provider Emergency Medicine; PCP Family Medicine
DX: S39.012A Strain of muscle, fascia and tendon of lower back, initial encounter (principal); X58.XXXA Exposure to other specified factors, initial encounter; Y93.89 Activity, other specified
CPT/HCPCS: 96372; 99283; J1170; J1885

== ENCOUNTER 2024-02-07 19:51 | Emergency (ER) | payer MEDICARE, OTHER, SELFPAY ==
[2023-05-07 06:51] VITALS: BMI 27.4
[2024-02-07 20:03] VITALS: BP 161/91; PULSE 63; RESP 16; TEMP 36.8; O2SAT 97; BMI 27.4
--- NOTE | 2024-02-07 20:15 | DI.RAD.S_ITS ---
PROCEDURE: XR SHOULDER RT MIN 2V INDICATIONS: fall/shoulder pain/hx arthritis TECHNIQUE: 2 views of the shoulder were acquired. COMPARISON: None. FINDINGS: Bones: No fractures or dislocations. No suspicious bony lesions. Visualized ribs appear intact. There are degenerative changes involving the acromioclavicular and glenohumeral joints. Coracoclavicular and acromioclavicular intervals are maintained. Soft tissues: No suspicious soft tissue calcifications. IMPRESSION: Degenerative changes of the acromioclavicular and glenohumeral joints. No acute fracture or dislocation. If there is persistent clinical concern for occult fracture given adequate mechanism of injury, consider repeat imaging in 10-14 days. Immobilization as clinically indicated. Dictated by: Sterling Edwards M.D. on 02/07/2024 at 21:41 Approved by: Sterling Edwards M.D. on 02/07/2024 at 21:42
--- NOTE | 2024-02-07 20:15 | DI.CT.S_ITS ---
PROCEDURE: CT HEAD/BRAIN WO CON INDICATIONS: fall/hit head TECHNIQUE: Noncontrast 4.5 mm thick angled axial sections acquired from the foramen magnum to the vertex, with coronal and sagittal reformats. For radiation dose reduction, the following was used: automated exposure control, adjustment of mA and/or kV according to patient size. COMPARISON: None. FINDINGS: Image quality: Diagnostic. CSF spaces: Basal cisterns are patent. No extra-axial fluid collections. The ventricles are symmetric in size and shape. Brain: No intracranial bleeds or masses. There is cerebral volume loss for age, with resultant ventricular and sulcal prominence. There are periventricular and deep white matter chronic small vessel ischemic changes. There is intracranial internal carotid artery atherosclerosis. Skull and face: Calvarium and visualized facial bones appear intact, without suspicious lesions. Sinuses: Multiple scattered ethmoid sinus mucosal thickening and probable left maxillary sinus mucous retention cyst. Other visualized paranasal sinuses and mastoids are clear. IMPRESSION: 1. CT head without acute intracranial abnormalities or acute calvarial fractures. 2. Age-related senescent changes and sequela of chronic small vessel ischemic disease. 3. Scattered ethmoid and left maxillary sinus disease. Dictated by: Sterling Edwards M.D. on 02/07/2024 at 21:32 Approved by: Sterling Edwards M.D. on 02/07/2024 at 21:34
--- NOTE | 2024-02-07 20:15 | DI.CT.S_ITS ---
PROCEDURE: CT CERVICAL SPINE WO CON INDICATIONS: fall/hit head TECHNIQUE: Noncontrast 3 mm thick sections acquired from the skull base to the T4 level. Sagittal and coronal reformats were then constructed. For radiation dose reduction, the following was used: automated exposure control, adjustment of mA and/or kV according to patient size. COMPARISON: None. FINDINGS: Image quality: Diagnostic Bones: No acute fractures or dislocations. No acute compression fractures of the vertebral bodies. Craniocervical junction is intact. C1-C2 relationship is preserved. Visualized superior ribs are intact. Straightening of cervical lordosis with gentle reversal centered at C5-6 likely related to positioning and/or concurrent muscle spasms. Severe multilevel cervical spondylosis most pronounced at C5-6 and C6-7. Soft tissues: Prevertebral soft tissues are normal in thickness. No paravertebral hematomas. No apical pneumothoraces. Bilateral maxillary sinus disease. IMPRESSION: CT cervical spine without acute fracture or traumatic malalignment. Severe multilevel cervical spondylosis most pronounced at C5-6 and C6-7. Dictated by: Sterling Edwards M.D. on 02/07/2024 at 21:34 Approved by: Sterling Edwards M.D. on 02/07/2024 at 21:36
--- NOTE | 2024-02-08 00:05 | ED_ITS ---
HPI - Fall General Chief Complaint: Fall Stated Complaint: Fall, hit head, on blood thinners Time Seen by Provider: 02/08/24 00:04 Source: patient Mode of arrival: Wheelchair History of Present Illness HPI Narrative: 63-year-old male with rheumatoid arthritis and ankylosing spondylitis, multiple back surgeries who presents with complaint of a fall he was standing on a rock about 2 ft high in his yd trying to put up some lights when he fell he states he sort of tucked and rolled. He states this occurred yesterday the . No loss of consciousness. He states he just tripped and fell. He did not hit his cheek. He states he hit his head. He was also having some right shoulder pain which he has had for some time but has not increased after his fall. Patient presents today complaint of headache and right shoulder pain. He states the shoulder pain has been persistent occurred before. He states he can move his shoulder but it is uncomfortable. No neck pain, no new back pain. Denies any chest pain or shortness of breath. No pelvic or lower extremity pain in his bones. He states he does not think he broke anything else. He does follow with Orthopedic surgery. He gets Cosentyx injections monthly. He has not on any anticoagulation. Denies any allergies to drugs. Notes he is multiple abrasions on his arms and legs. He is unsure of his tetanus status. He states he does not wish to have his tetanus updated today understands risks/benefits. Related Data Home Medications Medication Instructions Recorded Confirmed lisinopril 20 mg tablet 20 mg PO DAILY 08/01/22 05/07/23 meloxicam 15 mg tablet 15 mg PO DAILY 05/02/23 05/07/23 secukinumab 150 mg/mL subcutaneous 150 mg SUBCUT Q4W 05/07/23 05/07/23 syringe (Cosentyx) Previous Rx's Medication Instructions Recorded acetaminophen 325 mg tablet 650 mg (2 x 325 mg) PO Q6H PRN 05/11/23 Fever/Mild Pain (1-3) #60 tabs docusate sodium 100 mg capsule 100 mg PO BID #20 caps 05/11/23 oxycodone 5 mg tablet 5 mg PO Q3HR PRN Pain, Moderate 05/11/23 (4-6) #60 tabs cyclobenzaprine 10 mg tablet 10 mg PO TID PRN muscle spasm #21 01/10/24 tabs hydrocodone 5 mg-acetaminophen 325 1 tab PO Q4-6H PRN pain #10 tabs 01/10/24 mg tablet Allergies Allergy/AdvReac Type Severity Reaction Status Date / Time No Known Drug Allergies Allergy Verified 02/07/24 20:09 Review of Systems Review of Systems ROS Unobtainable: All systems reviewed & are unremarkable except as noted in HPI and below Patient History Medical History Ankylosing spondylitis Anxiety Sciatica HTN (hypertension) Diverticulitis Osteoarthritis Rheumatoid arthritis Surgical History Hx of umbilical hernia repair (06/22/20) History of appendectomy History of inguinal hernia repair, bilateral History of bilateral total hip arthroplasty Social History marital status: unknown household members: children occupational status: previously employed Smoking Status: Current every day smoker alcohol intake: current substance use type: does not use Smoking Status: Current every day smoker alcohol intake frequency: a few times a month Substance Use Type: does not use Exam Narrative Exam Narrative: GEN: Patient appears in mild distress. HEAD: No evidence of trauma, no raccoon/Putnam sign. NECK: Nontender, painless range of motion, trachea midline [Negative/positive] Nexus criteria, no midline line tenderness, distracting injury, altered mental status, neuro deficit, recent EtOH. EYES: PERRLA, EOMI ENT: External inspection normal, trachea is midline, TM's are normal no hemotypanum, Nares are clear, no septal hematoma, no dental or oral injury, airway is normal and with normal occlusion, No bony tenderness RESP: Chest is nontender and has symmetric movement, no ecchymosis, breath sounds are normal no crackles, wheezes or rales CVS: Heart sounds are normal, no murmur noted, No JVD. ABG/GI: Nontender, soft, normal bowel sounds, no distention, no organomegaly, pelvic rock is negative NEURO: Oriented AOx3, neuro is grossly intact, sensation and motor is normal all 4 extremities moving, cranial nerves II through XII are intact, GCS is 15 PSYCH: Normal mood and affect SKIN: Patient has a abrasion on left cheek, patient's bilateral lower extremities, warm and dry, no crepitus and without decubitus BACK: No CVA tenderness, no vertebral tenderness, no step-off's, no crepitus EXT: Atraumatic, patient does have some tenderness over the right shoulder can take it through gentle range of motion but does not take it through full range of motion. Hips are nontender, no pedal edema, normal color and temperature, 2+ pulses upper and lower extremities. Initial Vital Signs Initial Vital Signs: Vital Signs Temperature 98.2 F 02/07/24 20:03 Pulse Rate 63 02/07/24 20:03 Respiratory Rate 16 02/07/24 20:03 Blood Pressure 161/91 H 02/07/24 20:03 Pulse Oximetry 97 02/07/24 20:03 Oxygen Delivery Method Room Air 02/07/24 20:03 Course Orders Ordered: Discontinued Medications Hydrocodone Bitart/Acetaminophen (Hydrocodone/Acet 5/325 Prepack) 1 bottle MISC DIRECTED ONE Stop: 02/08/24 00:21 Last Admin: 02/08/24 00:28 Dose: 1 bottle Documented By: BRANDON Vital Signs Vital signs: Vital Signs - 8 hr 02/08/24 00:48 Pulse Rate 68 Respiratory Rate 18 Blood Pressure 179/86 H Pulse Oximetry 98 Oxygen Delivery Method Room Air MDM - Fall MDM Narrative Medical decision making narrative: 63-year-old male with fall hit his head yesterday, developed a headache today had some concern about bleed. Patient initially thought he was anticoagulated but then realized he was not. He is quite uncomfortable so head CT and C-spine were obtained. He has quite a bit of right shoulder pain but that was present before the fall but was reimaged. Head CT shows no acute intracranial change or fracture, age-related senescent changes, scattered ethmoid and left maxillary sinus disease. CT cervical shows some fear multilevel cervical spondylosis most pronounced at C5-6 and C6-7. No acute fracture or traumatic malalignment. Shoulder x-ray shows degenerative changes of the AC and glenohumeral joints no acute fracture dislocation. Acute traumatic changes. Patient has orthopedic follow up on Sunday. Discharge Plan Departure Patient Disposition: Home Clinical Impression: Abrasion of cheek, Shoulder pain, Fall Instructions: How to Prevent Falls Activity Restrictions/Additional Instructions: Follow up with your orthopedic physician at your scheduled appointment. Continue your home medications as prescribed. You can take [place] 1 tablet every 6 hours as needed pain. This medication can make you sleepy do not drive, perform hazardous activities or make any major decisions while taking it. This medication will make you constipated please take a stool softener once to twice daily until stools are soft and regular. Please return for new or worsening symptoms, new numbness tingling or weakness, severe headaches, persistent vomiting, lightheadedness or passing out, new loss of bowel or bladder control or other new or concerning changes Prescriptions: No Action lisinopril 20 mg Tablet 20 mg PO DAILY meloxicam 15 mg Tablet 15 mg PO DAILY Cosentyx 150 mg/mL Syringe 150 mg SUBCUT Q4W acetaminophen 325 mg Tablet 650 mg PO Q6H PRN (Reason: Fever/Mild Pain (1-3)) Qty: 60 0RF docusate sodium 100 mg Capsule 100 mg PO BID Qty: 20 0RF oxycodone 5 mg Tablet 5 mg PO Q3HR PRN (Reason: Pain, Moderate (4-6)) Qty: 60 0RF cyclobenzaprine 10 mg tablet 10 mg PO TID PRN (Reason: muscle spasm) Qty: 21 0RF hydrocodone-acetaminophen 5-325 mg tablet 1 tab PO Q4-6H PRN (Reason: pain) Qty: 10 0RF Referrals: Jasbir George MD [Primary Care Provider] - Stand Alone Forms: Patient Portal/API
[2024-02-08] MEDS: HYDROCODONE/ACET 5/325 PREPACK 1 BOTTLE MISC (00:28)
[2024-02-08 00:48] VITALS: BP 179/86; PULSE 68; RESP 18; O2SAT 98
== END 2024-02-08 01:02 | disposition home or self-care (01) ==
PROVIDERS: Emergency Provider Emergency Medicine; PCP Family Medicine
DX: S00.81XA Abrasion of other part of head, initial encounter (principal); M25.511 Pain in right shoulder; Z79.01 Long term (current) use of anticoagulants; W17.89XA Other fall from one level to another, initial encounter
CPT/HCPCS: 70450; 72125; 73030; 99281; 99284

== ENCOUNTER → 2024-09-08 13:54 | Outpatient (CLI) | payer OTHER, SELFPAY ==
[2023-05-07 06:51] VITALS: BMI 27.4
--- NOTE | 2024-09-08 13:56 | DI.CT.S_ITS ---
PROCEDURE: CT CHEST WO CON INDICATIONS: Pulmonary nodule TECHNIQUE: Noncontrast 5 mm thick sections acquired from the pulmonary apices to the posterior costophrenic angles. 1 mm lung window, 5 mm thick coronal and sagittal and 7 mm axial MIP reformats were then acquired. For radiation dose reduction, the following was used: automated exposure control, adjustment of mA and/or kV according to patient size. COMPARISON: [facility], CT, CT CHEST W CON, 07/02/2023, 10:02. FINDINGS: Image quality: Diagnostic. Lower Neck: No enlarged lymph nodes. Thyroid: No thyroid nodules which require sonographic follow up, per consensus guidelines. Axillae: No enlarged lymph nodes. Chest Wall: Unremarkable. Bones: Unremarkable. Lungs and Pleura: No pneumothorax or pleural effusions. A few stable pulmonary micro nodules are seen in the right upper lobe. Stable 5 mm average diameter solid nodule at the posterior right lower lobe (3/200). Heart: Heart size is normal. No pericardial effusion. Thoracic Vessels: The aorta and pulmonary arteries demonstrate normal size. Mediastinum and Jaimie: No enlarged lymph nodes. Esophagus: No wall thickening. No hiatal hernia. Upper Abdomen: Visualized upper abdomen solid organs and bowel loops appear normal. IMPRESSION: Stable small pulmonary nodules. No additional dedicated imaging follow-up is required. Approved by: Haile Hester M.D. on 09/08/2024 at 18:07
== END ==
PROVIDERS: PCP Family Medicine; Referring Provider Physician Assistant; Visit Provider Physician Assistant
DX: R63.4 Abnormal weight loss (principal); R91.1 Solitary pulmonary nodule
CPT/HCPCS: 71250

== ENCOUNTER → 2024-09-26 11:00 | Outpatient (CLI) | payer OTHER, SELFPAY ==
[2023-05-07 06:51] VITALS: BMI 27.4
--- NOTE | 2024-09-26 11:04 | DI.RAD.S_ITS ---
PROCEDURE: XR HIP W PEL IF DONE MATEUSZ MIN 4V INDICATIONS: Pain in right hip TECHNIQUE: AP pelvis with lateral view(s) of the bilateral hip(s). COMPARISON: None. FINDINGS: Bones: No fractures or dislocation status post bilateral total hip ORIF without definite evidence of hardware loosening or failure. Additional posterior spinal fixation hardware spans the L3 through S1 levels bilaterally with inter disc spacers at each level. Pelvic ring appears intact. No suspicious bony lesions. Soft tissues: The visualized bowel gas pattern is normal. No suspicious soft tissue calcifications. IMPRESSION: Postsurgical change without evidence of acute osseous abnormality or hardware failure. Dictated by: Bernardo Butcher M.D. on 09/27/2024 at 12:06 Approved by: Bernardo Butcher M.D. on 09/27/2024 at 12:08
== END ==
PROVIDERS: PCP Physician Assistant; Referring Provider Physician Assistant; Visit Provider Physician Assistant
DX: M25.551 Pain in right hip (principal); Z96.643 Presence of artificial hip joint, bilateral
CPT/HCPCS: 73522

== ENCOUNTER 2024-10-03 11:41 | Day surgery (SDC) | payer OTHER, SELFPAY ==
[2023-05-07 06:51] VITALS: BMI 27.4
--- NOTE | 2024-10-03 | PATH_ITS ---
[facility] Accession Number: [id number] No. of containers..02 Tissue . 01 Material submitted: . PART A: colon - CECAL POLYP PART B: colon - ASCENDING COLON POLYP . 01 Diagnosis: A. CECAL POLYP: Vegetable material. No colonic tissue identified. . B. ASCENDING COLON POLYP: Sessile serrated adenoma x1. Tubular adenoma x1. Please see comment. V 10/06/2024 1433 Local . 01 Comment: B. The ascending colon specimen consists of distinct fragments of sessile serrated adenoma and tubular adenoma. The histologic findings are suggestive of either incidental sampling of an adjacent lesion or carryover from the other part. Sessile serrated adenoma with cytologic dysplasia is not favored. . 01 Electronically signed: . Mark Parr MD, PhD, Pathologist NPI- [id number] . 01 Gross description: . A. Received in formalin, labeled with two patient identifiers and 1. Cecal polyp, are two moreno to yellow fragments of possible debris with no other tissue identified. Both fragments measure 0.3 cm in greatest dimension. Submitted entirely in cassette A1. B. Received in formalin, labeled with two patient identifiers and 2. Ascending colon, are two moreno soft tissue fragments measuring 0.5-0.9 cm in greatest dimension. Submitted in cassette B1. ([id number]) /FRR 10/04/2024 1052 Local . 01 Pathologist provided ICD-10: D12.2, D12.6 . 01 CPT . 122123, [id number] Specimen Comment: A courtesy copy of this report has been sent to [facility] Pathology Performed at: [address] [id number] MD Raza Corona MD Phone: [phone]
[2024-10-03 12:42] VITALS: BP 168/89; PULSE 58; RESP 16; TEMP 36.4; O2SAT 100
[2024-10-03] MEDS: LACTATED RINGERS 1,000 ML 42 ML IV (12:46)
[2024-10-03] MEDS: FLEETS ENEMA 1 EACH PR (12:47)
--- NOTE | 2024-10-03 12:54 | SUR.PREOP ---
Resp screening down for recent sniffle
[2024-10-03 13:11] LABS: Influenza A - CEPHEID Flu A NEGATIVE (NEGATIVE); Influenza B - CEPHEID Flu B NEGATIVE (NEGATIVE); Respiratory Syncytial Virus Negative (Negative)
[2024-10-03 13:15] LABS: COVID-19 CEPHEID 4-PLEX PCR Negative (Negative)
--- NOTE | 2024-10-03 13:27 | P.HP_ITS ---
History of Present Illness History of Present Illness Date Patient Seen: 10/03/24 Time Patient Seen: 13:28 Chief complaint: [facility] [place]ative: 64 year old white man for initial screening colonosocpy [facility] Medical History (Updated 10/03/24 @ 13:28 by Emir Antoine MD) Colon cancer screening Ankylosing spondylitis Anxiety Sciatica HTN (hypertension) Diverticulitis Osteoarthritis Rheumatoid arthritis Surgical History Hx of umbilical hernia repair (06/22/20) History of appendectomy History of inguinal hernia repair, bilateral History of bilateral total hip arthroplasty Social History marital status: unknown household members: children occupational status: previously employed Smoking Status: Current every day smoker alcohol intake: current substance use type: does not use Meds Home Medications and Allergies Home Medications Medication Instructions Recorded Confirmed Type lisinopril 20 mg tablet 20 mg PO DAILY 08/01/22 10/03/24 History meloxicam 15 mg tablet 15 mg PO DAILY 05/02/23 10/03/24 History secukinumab 150 mg/mL subcutaneous 150 mg SUBCUT Q4W 05/07/23 10/03/24 History syringe (Cosentyx) acetaminophen 325 mg tablet 650 mg (2 x 325 mg) PO Q6H PRN 05/11/23 Rx Fever/Mild Pain (1-3) #60 tabs oxycodone 5 mg tablet 5 mg PO Q3HR PRN Pain, Moderate 05/11/23 10/03/24 Rx (4-6) #60 tabs cyclobenzaprine 10 mg tablet 10 mg PO TID PRN muscle spasm #21 01/10/24 10/03/24 Rx tabs hydrocodone 5 mg-acetaminophen 325 1 tab PO Q4-6H PRN pain #10 tabs 01/10/24 Rx mg tablet gabapentin 600 mg tablet 600 mg PO BID 10/03/24 10/03/24 History Allergies Allergy/AdvReac Type Severity Reaction Status Date / Time No Known Drug Allergies Allergy Verified 10/03/24 12:34 Review of Systems Review of Systems ROS: Yes All systems reviewed with the patient and are negative except as otherwise documented Exam Vital Signs (past 8 hours): - 10/03/24 12:42 Temperature 97.6 F Pulse Rate 58 L Respiratory Rate 16 Blood Pressure 168/89 H Pulse Oximetry 100 Oxygen Delivery Method Room Air Oxygen Delivery Method Room Air Narrative Exam Narrative: Gen: NAD, sitting comfortably in bed, appears well HEENT: Sclera are anicteric, head is normocephalic and atraumatic, trachea is midline. CV: RRR, no JVD Resp: clear to auscultation bilaterally, equal chest wall movement bilaterally Abd: soft, nontender, normoactive bowel sounds Ext: no edema, full range of motion Neuro: Cranial nerves II-XII grossly intact, no focal deficits Skin: No erythema or ecchymosis Objective Labs Labs: Laboratory Results - last 24 hr 10/03/24 12:30 SARS-CoV-2 (PCR) Negative Influenza A (RT-PCR) Flu a negative Influenza B (RT-PCR) Flu b negative RSV (PCR) Negative Assessment & Plan Assessment and plan (1) Colon cancer screening: Status: Acute Time-Based Coding :: [TOTAL MINUTES] spent with patient and on the chart (including review of chart, obtaining history, exam, reviewing outside data, placing orders, documenting exam and treatment plan, and counseling patient) on [DATE]. PROFEE Pan Washer Hand Document charge(s): No
--- NOTE | 2024-10-03 13:48 | PM.OP.COLON ---
Operative Date/Time/Diagnoses Date of procedure: 10/03/24 Time of procedure: 13:48 Pre-op diagnosis: Colon screening Post-op diagnosis: same (Small benign polyps x2 ) Procedure & Clinicians Study performed: Colonoscopy with cold snare polypectomy x2 Same procedure as scheduled: Yes Indications: Colon screening Surgeon: Emir Antoine Procedure Notes SCOAP/Timeout: Performed Procedure in detail: Time-out was performed. Mac was induced. Patient was placed in left lateral decubitus position. The perineum was inspected without any gross abnormality. Lubricated pediatric colonoscope was inserted and advanced to the cecum. The terminal ileum was intubated. The colonoscope was withdrawn slowly inspecting the circumference of the colon. A small polyp of the cecum and ascending were noted, both completely removed and retrieved with cold snare polypectomy. Both were less than 10 mm in size. Sigmoid diverticulosis. Very small polyps may have been missed, prep quality was adequate. Retroflexed view of the rectum showed small, non prolapsed nonbleeding internal hemorrhoids. The scope was withdrawn the patient was taken to PACU in good condition. Scope withdrawal time: 6 Findings: polyp(s) Specimen(s): other (1. Cecal polyp 2. Ascending polyp) Complications: none Impression: Colon polyps Post-procedure Recommendations: Colonoscopy in 5 years Follow up: as needed Disposition: PACU
[2024-10-03 13:53] VITALS: BP 98/60; PULSE 51; RESP 16; TEMP 36.3; O2SAT 98
[2024-10-03 13:59] VITALS: BP 102/64; PULSE 53; RESP 16; O2SAT 100
[2024-10-03 14:10] VITALS: BP 137/84; PULSE 54; RESP 16; TEMP 36.2; O2SAT 98
[2024-10-03 14:16] VITALS: BP 146/85; PULSE 58; RESP 16; TEMP 36.2; O2SAT 98
== END 2024-10-03 14:28 | disposition home or self-care (01) ==
PROVIDERS: Nurse Anesthetist, Certified Registered; PCP Physician Assistant; Referring Provider Surgery; Visit Provider Surgery
PROC: 0DJD8ZZ Inspection of Lower Intestinal Tract, Via Natural or Artificial Opening Endoscopic (ICD-10-PCS; CPT 45378; principal; 2024-10-03 13:00)
DX: Z12.11 Encounter for screening for malignant neoplasm of colon (principal); D12.2 Benign neoplasm of ascending colon; K63.5 Polyp of colon
CPT/HCPCS: 45385; 0241U; J2704

== ENCOUNTER 2024-11-18 12:31 | Emergency (ER) | payer OTHER, SELFPAY ==
[2023-05-07 06:51] VITALS: BMI 27.4
[2024-11-18] VITALS (14 sets, daily range): BP systolic 143–177; BP diastolic 74–96; PULSE 53–71; RESP 13–23; TEMP 36.5; O2SAT 94–98; BMI 22.7
--- NOTE | 2024-11-18 12:40 | EKG_ITS ---
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
--- NOTE | 2024-11-18 12:54 | ED.NAVMDI ---
HPI - Nausea/Vomiting/Diarrhea General Chief complaint: Nausea/Vomiting/Diarrhea Stated complaint: Dehydration, N/V Time Seen by Provider: 11/18/24 12:44 Source: patient Mode of arrival: EMS History of Present Illness HPI Narrative: 64-year-old gentleman history of high blood pressure back surgery presents with 2 days of nausea vomiting diarrhea unable to hold anything down brought in by EMS for further evaluation. No recent antibiotic use no blood in the stool or in the urine. Other than what is stated 14 point review of system is negative Related Data Home Medications Medication Instructions Recorded Confirmed lisinopril 20 mg tablet 20 mg PO DAILY 08/01/22 10/03/24 meloxicam 15 mg tablet 15 mg PO DAILY 05/02/23 10/03/24 secukinumab 150 mg/mL subcutaneous 150 mg SUBCUT Q4W 05/07/23 10/03/24 syringe (Cosentyx) gabapentin 600 mg tablet 600 mg PO BID 10/03/24 10/03/24 Previous Rx's Medication Instructions Recorded acetaminophen 325 mg tablet 650 mg (2 x 325 mg) PO Q6H PRN 05/11/23 Fever/Mild Pain (1-3) #60 tabs oxycodone 5 mg tablet 5 mg PO Q3HR PRN Pain, Moderate 05/11/23 (4-6) #60 tabs cyclobenzaprine 10 mg tablet 10 mg PO TID PRN muscle spasm #21 01/10/24 tabs hydrocodone 5 mg-acetaminophen 325 1 tab PO Q4-6H PRN pain #10 tabs 01/10/24 mg tablet ondansetron HCl 4 mg tablet 4 mg PO Q8H PRN nausea and 11/18/24 vomiting #30 tabs Allergies Allergy/AdvReac Type Severity Reaction Status Date / Time No Known Drug Allergies Allergy Verified 11/18/24 12:37 Review of Systems Review of Systems ROS Unobtainable: All systems reviewed & are unremarkable except as noted in HPI and below Patient History Medical History (Updated 11/18/24 @ 14:53 by Eugene Jimenes DO) Colon cancer screening Ankylosing spondylitis Anxiety Sciatica HTN (hypertension) Diverticulitis Osteoarthritis Rheumatoid arthritis Surgical History Hx of umbilical hernia repair (06/22/20) History of appendectomy History of inguinal hernia repair, bilateral History of bilateral total hip arthroplasty Social History marital status: unknown household members: children occupational status: previously employed Smoking Status: Current every day smoker alcohol intake: current substance use type: does not use Smoking Status: Current every day smoker alcohol intake frequency: a few times a month Exam Narrative Exam Narrative: GENERAL: [64] year old patient appears stated age. Well-developed patient, in mild distress. HEAD: Atraumatic. Normocephalic. EYES: Pupils equal round and reactive. Extraocular motions intact. No scleral icterus. No injection or drainage. NECK: Trachea midline. Non tender CARDIOVASCULAR: Regular rate and rhythm without murmurs, gallops, or rubs. RESPIRATORY: Clear to auscultation. Breath sounds equal bilaterally. No wheezes, rales, or rhonchi. GASTROINTESTINAL: Abdomen soft, non-tender, nondistended. EXTREMITIES: No edema or joint tenderness. BACK: Nontender without deformity or crepitance. No flank tenderness. NEURO: AOx3. SKIN: No rash or erythema of visible areas Initial Vital Signs Initial Vital Signs: Vital Signs Temperature 97.7 F 11/18/24 12:31 Pulse Rate 64 11/18/24 12:31 Respiratory Rate 14 11/18/24 12:31 Blood Pressure 177/85 H 11/18/24 12:31 Pulse Oximetry 95 11/18/24 12:31 Oxygen Delivery Method Room Air 11/18/24 12:31 Course Orders Ordered: ED Orders 11/18/24 12:46 Complete Blood Count AUTO DIFF Stat Comprehensive Metabolic Panel Stat 11/18/24 12:53 Urinalysis and Microscopic Stat 11/18/24 12:54 Stool Culture Stat EKG-12 Lead Stat 11/18/24 13:03 CT abdomen pelvis w con Stat Ondansetron HCl (Ondansetron 4 Mg/2 Ml Inj) 4 mg IV NOW PRN PRN Reason: Nausea And Vomiting Ondansetron HCl (Ondansetron 4 Mg Odt) 4 mg SL NOW PRN PRN Reason: Nausea And Vomiting Discontinued Medications Sodium Chloride (Normal Saline 0.9%) 1,000 mls @ 1,000 mls/hr IV BOLUS ONE Stop: 11/18/24 13:53 Last Infusion: 11/18/24 15:03 Dose: Infused Documented By: Admin: 11/18/24 13:27 Dose: 1,000 mls/hr Documented By: MICKEY Ondansetron HCl (Ondansetron 4 Mg/2 Ml Inj) 4 mg IV NOW ONE Stop: 11/18/24 12:55 Last Admin: 11/18/24 13:28 Dose: 4 mg Documented By: MICKEY Vital Signs Vital signs: Vital Signs - 8 hr 11/18/24 12:31 11/18/24 12:42 11/18/24 13:00 Temperature 97.7 F Pulse Rate 64 62 59 L Respiratory Rate 14 23 Blood Pressure 177/85 H Pulse Oximetry 95 97 98 Oxygen Delivery Method Room Air 11/18/24 13:11 11/18/24 13:11 11/18/24 13:30 Temperature Pulse Rate 59 L 71 Respiratory Rate 13 22 Blood Pressure 153/76 H Pulse Oximetry 98 97 Oxygen Delivery Method 11/18/24 14:00 11/18/24 14:00 11/18/24 14:30 Temperature Pulse Rate 58 L Respiratory Rate 20 Blood Pressure 143/81 H 154/82 H Pulse Oximetry 97 Oxygen Delivery Method 11/18/24 14:30 11/18/24 15:00 11/18/24 15:00 Temperature Pulse Rate 59 L 62 Respiratory Rate 21 23 Blood Pressure 157/83 H Pulse Oximetry 97 98 Oxygen Delivery Method MDM - Nausea/Vomiting/Diarrhea Lab Data 11/18/24 12:46 11/18/24 12:46 Labs: Lab Results 11/18/24 11/18/24 Range/Units 12:46 12:53 WBC 7.4 (4.5-11.0) X10^3/uL RBC 4.45 L (4.5-5.9) X10^6/uL Hgb 13.6 (13.5-17.5) g/dL Hct 40.7 L (41-53) % MCV 91.5 (80-100) fL MCH 30.6 (26-34) PG MCHC 33.4 (30-36) % RDW 14.3 (11.6-14.8) % Plt Count 259 (150-400) X10^3/uL Neut % (Auto) 66.9 (50-75) % Lymph % (Auto) 22.9 L (25-40) % [place] % (Auto) 7.2 (3-14) % Eos % (Auto) 2.3 (2-4) % Baso % (Auto) 0.7 (0-2) % Neut # (Auto) 5000 (5825-8299) /uL Lymph # (Auto) 1700 (8700-4745) /uL [place] # (Auto) 500 (0-900) /uL Eos # (Auto) 200 (0-450) /uL Baso # (Auto) 100 (0-100) /uL Sodium 138 (137-145) mmol/L Potassium 4.5 (3.4-5.1) mmol/L Chloride 104 (98-107) mmol/L Carbon Dioxide 24 (22-32) mmol/L BUN 13 (9-20) mg/dL Creatinine 0.89 (0.66-1.25) mg/dL Estimated GFR > 60 (>60) mL/min BUN/Creatinine Ratio 14.6 (6-22) Glucose 110 (80-110) mg/dL Calcium 9.8 (8.4-10.2) mg/dL Total Bilirubin 0.8 (0.2-1.3) mg/dL AST 26 (17-59) IU/L ALT 15 (<50) IU/L Alkaline Phosphatase 69 (38-126) U/L Total Protein 8.0 (6.3-8.2) g/dL Albumin 4.7 (3.5-5.0) g/dL Globulin 3.3 (1.7-4.1) g/dL Albumin/Globulin Ratio 1.4 (1.0-2.8) Urine Color Yellow Urine Appearance Clear Urine pH 6.0 (4.5-8.0) Ur Specific [place] 1.010 (1.000-1.035) Urine Protein Negative (Negative) Urine Glucose (UA) Negative (Negative) g/dL Urine Ketones 1+ H (NEGATIVE) Urine Occult Blood Trace-intact (Negative) Urine Nitrate Negative (Negative) Urine Bilirubin Negative (NEGATIVE) Urine Urobilinogen 0.2 (0.2) E.U./dL Ur Leukocyte Esterase Negative (NEGATIVE) Urine RBC None seen (0-5/HPF) Urine WBC None seen (0-5/HPF) Ur Squamous Epith Cells None seen (0-5/HPF) Urine Bacteria None seen (None) Ur Culture Indicated? Cult not indicated Vol Urine Centrifuged 10ml (spun) Urine Dip Bedside Urine Glucose Negative Bedside Urine Bilirubin - Negative Bedside Urine Ketone - Negative Urine Specific [place] 1.005 Bedside Urine Occult Blood - Negative Bedside Urine pH 7.0 Bedside Urine Protein - Negative Bedside Urine Urobilinogen - Negative Bedside Urine Nitrite - Negative Bedside Urine Leukocytes - Negative Esterase Imaging Data CT scan - abdomen/pelvis: Radiologist's Impression: [address] [address] [address] Scan Report Signed Patient: Moose Huynh MR#: [id number] : 1960 Acct:[id number] Age/Sex: 64 / M Date of Service: 11/18/24 Loc: ED Accession Number: [id number] Procedure: CT abdomen pelvis w con Ordering Provider: Eugene Jimenes D.O. PROCEDURE: CT ABDOMEN PELVIS W CON INDICATIONS: abd pain/n/v/d TECHNIQUE: After the administration of intravenous contrast, axial sections acquired from the lung bases to the pubic symphysis. Coronal and sagittal reformats were performed. For radiation dose reduction, the following was used: automated exposure control, adjustment of mA and/or kV according to patient size. COMPARISON: [facility], CT, CT ABDOMEN PELVIS W CON, 09/06/2019, 18:10. FINDINGS: Image quality: Diagnostic. Lower Chest: Dependent atelectasis in posterior aspect of bilateral lung moreau are seen. Heart size is normal, no pericardial effusion. ABDOMEN: Liver: No solid mass. Gallbladder: No radiopaque gallstones or wall thickening. Biliary ducts: No biliary dilation. Pancreas: No ductal dilation. Spleen: Size is within normal limits. Small cyst in inferior aspect of spleen is again seen unchanged from prior study. Adrenal Glands: No adrenal nodules. Kidneys and Ureters: No hydronephrosis. No solid mass. No complex renal cystic lesion which requires follow up. Stomach and Bowel: Mild fecal stasis in the colon is seen. There is no bowel obstruction. No gastric or small bowel wall thickening. Extensive sigmoid diverticulosis without CT evidence of acute diverticulitis. No abscess collection. No focal inflammatory changes are noted in right lower quadrant abdomen. Peritoneum: No abnormal intraperitoneal fluid. No free air. Ventral Wall: No significant ventral hernia. Abdominal Nodes: No retroperitoneal or mesenteric adenopathy by size criteria. Vessels: Aorta and inferior vena cava are normal in size. PELVIS: Pelvic Organs: Unremarkable. Bladder: No bladder wall thickening, accounting for underdistention. Pelvic Nodes: No enlarged lymph nodes. Miscellaneous: No inguinal hernias are seen. Bones: No aggressive osseous abnormality. Prior bilateral total hip arthroplasty is seen. Post fusion changes are noted in mid to lower lumbar spine. No acute vertebral body compression fracture. IMPRESSION: 1. No bowel obstruction or abnormal bowel wall thickening. No free fluid or free air. Sigmoid diverticulosis without CT evidence of acute diverticulitis. No secondary CT signs of acute appendicitis. No abscess collection. 2. No obstructing renal stones or hydronephrosis. 3. Postfusion changes in mid to lower lumbar spine. No acute vertebral body compression fracture. Prior bilateral total hip arthroplasty. Dictated by: Carlos Salmeron M.D. on 11/18/2024 at 13:14 Approved by: Carlos Salmeron M.D. on 11/18/2024 at 13:17 ECG Data Attestation: I personally reviewed and interpreted this ECG as follows: Interpretation: HR [address]-t wave change [place] 202 QRS 102 QT 420 change from 03/28/23 [facility] Narrative Medical decision making narrative: All lab work and CT scan all reviewed patient was given Zofran and NS 1L bolus x 1. Nurse triage note, medication list, previous ER visits, previous imaging studies and vital signs all reviewed. Differential diagnosis includes UTI, sepsis, dehydration, electrolyte derangement, small-bowel obstruction, constipation, viral etiology. Return with new or worsening symptoms discharged home on Zofran and keep hydrated clear weight liquid diet advance as tolerated. Discharge Plan Departure Patient Disposition: Home Clinical Impression: Nausea vomiting and diarrhea Abdominal pain Qualifiers: Abdominal location: generalized Qualified Code(s): R10.84 - Generalized abdominal pain Instructions: Nausea and Vomiting-Adult Activity Restrictions/Additional Instructions: Return with new or worsening symptoms. Take your medicines as directed keep hydrated and to follow up with her PCP in 1 week. Prescriptions: New ondansetron HCl 4 mg tablet 4 mg PO Q8H PRN (Reason: nausea and vomiting) Qty: 30 0RF No Action lisinopril 20 mg Tablet 20 mg PO DAILY meloxicam 15 mg Tablet 15 mg PO DAILY Cosentyx 150 mg/mL Syringe 150 mg SUBCUT Q4W acetaminophen 325 mg Tablet 650 mg PO Q6H PRN (Reason: Fever/Mild Pain (1-3)) Qty: 60 0RF oxycodone 5 mg Tablet 5 mg PO Q3HR PRN (Reason: Pain, Moderate (4-6)) Qty: 60 0RF gabapentin 600 mg Tablet 600 mg PO BID cyclobenzaprine 10 mg tablet 10 mg PO TID PRN (Reason: muscle spasm) Qty: 21 0RF hydrocodone-acetaminophen 5-325 mg tablet 1 tab PO Q4-6H PRN (Reason: pain) Qty: 10 0RF Referrals: Miscellaneous,Doctor, MD [Primary Care Provider] - Stand Alone Forms: Patient Portal/API/Survey
--- NOTE | 2024-11-18 13:03 | DI.CT.S_ITS ---
PROCEDURE: CT ABDOMEN PELVIS W CON INDICATIONS: abd pain/n/v/d TECHNIQUE: After the administration of intravenous contrast, axial sections acquired from the lung bases to the pubic symphysis. Coronal and sagittal reformats were performed. For radiation dose reduction, the following was used: automated exposure control, adjustment of mA and/or kV according to patient size. COMPARISON: [facility], CT, CT ABDOMEN PELVIS W CON, 09/06/2019, 18:10. FINDINGS: Image quality: Diagnostic. Lower Chest: Dependent atelectasis in posterior aspect of bilateral lung moreau are seen. Heart size is normal, no pericardial effusion. ABDOMEN: Liver: No solid mass. Gallbladder: No radiopaque gallstones or wall thickening. Biliary ducts: No biliary dilation. Pancreas: No ductal dilation. Spleen: Size is within normal limits. Small cyst in inferior aspect of spleen is again seen unchanged from prior study. Adrenal Glands: No adrenal nodules. Kidneys and Ureters: No hydronephrosis. No solid mass. No complex renal cystic lesion which requires follow up. Stomach and Bowel: Mild fecal stasis in the colon is seen. There is no bowel obstruction. No gastric or small bowel wall thickening. Extensive sigmoid diverticulosis without CT evidence of acute diverticulitis. No abscess collection. No focal inflammatory changes are noted in right lower quadrant abdomen. Peritoneum: No abnormal intraperitoneal fluid. No free air. Ventral Wall: No significant ventral hernia. Abdominal Nodes: No retroperitoneal or mesenteric adenopathy by size criteria. Vessels: Aorta and inferior vena cava are normal in size. PELVIS: Pelvic Organs: Unremarkable. Bladder: No bladder wall thickening, accounting for underdistention. Pelvic Nodes: No enlarged lymph nodes. Miscellaneous: No inguinal hernias are seen. Bones: No aggressive osseous abnormality. Prior bilateral total hip arthroplasty is seen. Post fusion changes are noted in mid to lower lumbar spine. No acute vertebral body compression fracture. IMPRESSION: 1. No bowel obstruction or abnormal bowel wall thickening. No free fluid or free air. Sigmoid diverticulosis without CT evidence of acute diverticulitis. No secondary CT signs of acute appendicitis. No abscess collection. 2. No obstructing renal stones or hydronephrosis. 3. Postfusion changes in mid to lower lumbar spine. No acute vertebral body compression fracture. Prior bilateral total hip arthroplasty. Dictated by: Carlos Salmeron M.D. on 11/18/2024 at 13:14 Approved by: Carlos Salmeron M.D. on 11/18/2024 at 13:17
[2024-11-18 13:05] LABS: Add Manual Diff / Slide Review NO; Basophils Absolute Auto 100 /uL (0-100); Basophils Percent Auto 0.7 % (0-2); Eosinophils Absolute Auto 200 /uL (0-450); Eosinophils Percent Auto 2.3 % (2-4); Hematocrit 40.7 % (41-53); Hemoglobin 13.6 g/dL (13.5-17.5); Lymphocytes Absolute Auto 1700 /uL (1100-4500); Lymphocytes Percent Auto 22.9 % (25-40); Mean Corpuscular HGB Conc 33.4 % (30-36); Mean Corpuscular Hemoglobin 30.6 PG (26-34); Mean Corpuscular Volume 91.5 fL (80-100); Monocytes Absolute Auto 500 /uL (0-900); Monocytes Percent Auto 7.2 % (3-14); Neutrophils Absolute Auto 5000 /uL (1500-7000); Neutrophils Percent Auto 66.9 % (50-75); Platelet Count 259 X10^3/uL (150-400); Red Blood Cell Count 4.45 X10^6/uL (4.5-5.9); Red Cell Distribution Width 14.3 % (11.6-14.8); White Blood Cell Count 7.4 X10^3/uL (4.5-11.0)
[2024-11-18 13:10] LABS: Alanine Aminotransferase 15 IU/L (<50); Albumin 4.7 g/dL (3.5-5.0); Albumin Globulin Ratio 1.4 (1.0-2.8); Alkaline Phosphatase 69 U/L (38-126); Aspartate Aminotransferase 26 IU/L (17-59); BUN Creatinine Ratio 14.6 (6-22); Bilirubin Total 0.8 mg/dL (0.2-1.3); Blood Urea Nitrogen 13 mg/dL (9-20); Calcium 9.8 mg/dL (8.4-10.2); Carbon Dioxide 24 mmol/L (22-32); Chloride 104 mmol/L (98-107); Estimated Glomerular Filt Rate > 60 mL/min (>60); Globulin 3.3 g/dL (1.7-4.1); Glucose 110 mg/dL (80-110); HEMOLYSIS 35 (0-50); Potassium 4.5 mmol/L (3.4-5.1); Sodium 138 mmol/L (137-145)
[2024-11-18 13:13] LABS: Appearance Urine UA CLEAR; Bilirubin Urine UA NEGATIVE (NEGATIVE); Color Urine UA YELLOW; Glucose Urine UA NEGATIVE (Negative); Ketones Urine UA 1+ (NEGATIVE); Leukocyte Esterase Urine UA NEGATIVE (NEGATIVE); Nitrite Urine UA NEGATIVE (Negative); Occult Blood Urine UA TRACE-INTACT (Negative); Protein Urine UA NEGATIVE (Negative); Urobilinogen Urine UA 0.2 E.U./dL (0.2)
[2024-11-18] MEDS: SODIUM CHLORIDE 0.9% 1,000 ML 1000 ML IV (13:27)
[2024-11-18] MEDS: ONDANSETRON 4 MG/2 ML INJ IV (13:28)
[2024-11-18 13:35] LABS: Bacteria Urine None Seen; RBC Urine None Seen (0-5/HPF); Squamous Epithelial Cell Urine None Seen (0-5/HPF); Urine Volume 10mL (spun); WBC Urine None Seen (0-5/HPF)
[2024-11-18 13:36] LABS: Culture Indicated Urine Cult Not Indicated
== END 2024-11-18 18:20 | disposition home or self-care (01) ==
PROVIDERS: Emergency Provider Family Medicine
DX: R10.84 Generalized abdominal pain (principal); R11.2 Nausea with vomiting, unspecified; R19.7 Diarrhea, unspecified; I10 Essential (primary) hypertension; F17.210 Nicotine dependence, cigarettes, uncomplicated
CPT/HCPCS: 36415; 74177; 80053; 81001; 81003; 85025; 93005; 96361; 96374; 99284; J2405; Q9967